=== PATIENT | male | born 1970 | race Caucasian/White ===

== ENCOUNTER 2017-06-08 10:21 | Inpatient (IN) | payer OTHER ==
[~2017-06-08] VITALS: Ht 182.9 cm; Wt 74.6 kg
[2017-06-08] VITALS (15 sets, daily range): BP systolic 102–149; BP diastolic 57–98; PULSE 84–114; RESP 16–18; TEMP 97.9–99.7; O2SAT 87–100
[2017-06-08] MEDS ORDERED: IOHEXOL 350 MG/ML 10 ML VIAL (for RAD DIAG) IVCONTRAST ONE (10:22)
[2017-06-08] MEDS ORDERED: GADODIAMIDE PF 287 MG/ML 20 ML VIAL (for RAD MRI) IVCONTRAST ONE (10:22)
[2017-06-08] MEDS ORDERED: SODIUM CHLOR 0.9% 1000 ML INJ 1,000 ML IV ONE (10:27)
[2017-06-08] MEDS ORDERED: LORazepam 2 MG/ML VIAL ONE (10:38)
[2017-06-08 10:49] LABS: AUTOMATED NEUTROPHIL # 3.6 TH/MM3 (1.8-7.7); BASOPHIL # 0.1 TH/MM3 (0-0.2); BASOPHIL % 1.6 % (0.0-2.0); EOSINOPHIL # 0.1 TH/MM3 (0-0.4); EOSINOPHIL % 1.9 % (0.0-4.0); HEMATOCRIT 43.6 % (39.0-51.0); HEMOGLOBIN 16.4 GM/DL (13.0-17.0); LYMPH % 23.8 % (9.0-44.0); LYMPHOCYTE # 1.4 TH/MM3 (1.0-4.8); MEAN CELL VOLUME 85.2 FL (80.0-100.0); MEAN PLATELET VOLUME 7.1 FL (7.0-11.0); MONO % 9.5 % (0.0-8.0); MONOCYTE # 0.5 TH/MM3 (0-0.9); NEUT % 63.2 % (16.0-70.0); PLATELET COUNT 223 TH/MM3 (150-450); RED BLOOD COUNT 5.12 MIL/MM3 (4.50-5.90); RED CELL DISTRIBUTION WIDTH 12.4 % (11.6-17.2); WHITE BLOOD COUNT 5.7 TH/MM3 (4.0-11.0)
--- NOTE | 2017-06-08 10:52 | PD ---
HPI Chief Complaint: Stroke Alert Time Seen by Provider: 10:22 Travel History International Travel<30 days: No Contact w/Intl Traveler<30days: No Traveled to known affect area: No History of Present Illness HPI Patient complained of a headache previous day while he was camping. Patient also continued to have this headache as well as he developed a tonic-clonic type seizure while he was playing a board game with his family. Patient then developed a left eye gaze forced deviation, patient was able to answer questions at this present time. Only major complaint is that of headache like he has had for the past day or so. No previous history of seizure PFS Social History Tobacco Use: No Allergies-Medications (Allergen,Severity, Reaction): Coded Allergies: No Known Allergies (Unverified , 07/20/16) Reported Meds & Prescriptions Reported Meds & Active Scripts Active Active Prescriptions or Reported Medications Unobtainable Review of Systems General / Constitutional: No: Fever Eyes: No: Visual changes HENT: No: Headaches Cardiovascular: No: Chest Pain or Discomfort Respiratory: No: Shortness of Breath Gastrointestinal: No: Abdominal Pain Genitourinary: No: Dysuria Musculoskeletal: No: Pain Skin: No Rash Neurologic: Positive: Seizures Psychiatric: No: Depression Endocrine: No: Polydipsia Hematologic/Lymphatic: No: Easy Bruising Physical Exam Narrative GENERAL: SKIN: Warm and dry. HEAD: Atraumatic. Normocephalic. EYES: Pupils equal and round. No scleral icterus. Left eye deviation ENT: No nasal bleeding or discharge. Mucous membranes pink and moist. NECK: Trachea midline. No JVD. CARDIOVASCULAR: Regular rate and rhythm. RESPIRATORY: No accessory muscle use. Clear to auscultation. Breath sounds equal bilaterally. GASTROINTESTINAL: Abdomen soft, non-tender, nondistended. Hepatic and splenic margins not palpable. MUSCULOSKELETAL: Extremities without clubbing, cyanosis, or edema. No obvious deformities. NEUROLOGICAL: Awake and alert. Left-sided weakness. Patient is able to feel pinprick sensation. Normal speech. PSYCHIATRIC: Appropriate mood and affect; insight and judgment normal. Data Data Last Documented VS Vital Signs Date Time Temp Pulse Resp B/P (MAP) Pulse Ox O2 Delivery O2 Flow Rate FiO2 06/08/17 12:05 40 06/08/17 11:22 98.1 111 16 118/57 (77) 100 Non-Rebreather 15.00 Orders Orders Diet Npo (06/08/17 Lunch) Activity Bed Rest (06/08/17 ) Electrocardiogram (06/08/17 ) I-Stat Profile (06/08/17 10:27) Prothrombin Time / Inr (Pt) (06/08/17 10:27) Act Partial Throm Time (Ptt) (06/08/17 10:27) Complete Blood Count With Diff (06/08/17 10:27) Fibrinogen (06/08/17 10:27) Creatine Kinase (Cpk) (06/08/17 10:27) Troponin I (06/08/17 10:27) Ua Includes Microscopic (06/08/17 10:27) Drug Screen, Random Urine (06/08/17 10:27) Type And Screen (06/08/17 10:27) Ct Brain W/O Iv Contrast(Rout) (06/08/17 ) Cta Brain W Iv Contrast W 3d (06/08/17 10:27) Cta Neck W Iv Contrast W 3d (06/08/17 10:27) Consult Neurology (06/08/17 ) Blood Glucose (06/08/17 10:27) Ecg Monitoring (06/08/17 10:27) Neuro Checks Q2HX12,Q4H (06/08/17 10:27) Nursing Bedside Swallow Assess .ONCE (06/08/17 10:27) Iv Access Insert/Monitor (06/08/17 10:27) NPO (06/08/17 10:27) Oximetry (06/08/17 10:27) Resp Oxygen Nc Stroke (06/08/17 ) Sodium Chlor 0.9% 1000 Ml Inj (Ns 1000 M (06/08/17 10:27) Cath For Specimen (06/08/17 10:27) Lorazepam Inj (Ativan Inj) (06/08/17 10:38) Iohexol 350 Inj (Omnipaque 350 Inj) (06/08/17 10:22) Fosphenytoin Inj (Cerebyx Inj) (06/08/17 11:00) (Hub Use Only)Inp Phy Cons/Ref (06/08/17 ) Mri Brain W&W/O Contrast (06/08/17 ) Urinary Catheter Insert/Apply (06/08/17 10:52) Lorazepam Inj (Ativan Inj) (06/08/17 11:00) Midazolam Inj (Versed Inj) (06/08/17 11:07) Lorazepam Inj (Ativan Inj) (06/08/17 11:15) Eeg Study (06/08/17 ) Fosphenytoin Inj (Cerebyx Inj) (06/08/17 14:00) ^ Seizure Precautions (06/08/17 11:12) Lorazepam Inj (Ativan Inj) (06/08/17 11:15) Gadodiamide Pf Inj (Omniscan Pf Inj) (06/08/17 10:22) Succinylcholine Inj (Quelicin Inj) (06/08/17 11:49) Etomidate Inj (Amidate Inj) (06/08/17 11:50) Propofol 500 Mg/50 Ml Inj (Diprivan 500 (06/08/17 12:09) Propofol 1000 Mg/100 Ml Inj (Diprivan 10 (06/08/17 12:15) Consult Neurosurgery (06/08/17 ) Dexamethasone Inj (Decadron Inj) (06/08/17 12:15) Admit Order (Ed Use Only) (06/08/17 12:19) Dexamethasone Inj (Decadron Inj) (06/08/17 18:00) Labs Laboratory Tests Test 06/08/17 10:23 06/08/17 11:00 White Blood Count 5.7 TH/MM3 Red Blood Count 5.12 MIL/MM3 Hemoglobin 16.4 GM/DL Bedside Hemoglobin 15.0 G/DL Hematocrit 43.6 % Bedside Hematocrit 44.0 % Mean Corpuscular Volume 85.2 FL Mean Corpuscular Hemoglobin 32.0 PG Mean Corpuscular Hemoglobin Concent 37.5 % Red Cell Distribution Width 12.4 % Platelet Count 223 TH/MM3 Mean Platelet Volume 7.1 FL Neutrophils (%) (Auto) 63.2 % Lymphocytes (%) (Auto) 23.8 % Monocytes (%) (Auto) 9.5 % Eosinophils (%) (Auto) 1.9 % Basophils (%) (Auto) 1.6 % Neutrophils # (Auto) 3.6 TH/MM3 Lymphocytes # (Auto) 1.4 TH/MM3 Monocytes # (Auto) 0.5 TH/MM3 Eosinophils # (Auto) 0.1 TH/MM3 Basophils # (Auto) 0.1 TH/MM3 CBC Comment AUTO DIFF Differential Comment AUTO DIFF CONFIRMED Prothrombin Time 10.4 SEC Prothromb Time International Ratio 1.0 RATIO Activated Partial Thromboplast Time 25.7 SEC Fibrinogen 252 mg/dL Bedside Sodium 142 MMOL/L Bedside Potassium 3.8 MMOL/L Bedside Chloride 104 MMOL/L Bedside Blood Urea Nitrogen 8 MG/DL Bedside Creatinine 0.8 MG/DL Bedside Glucose 107 MG/DL Total Creatine Kinase 53 U/L Troponin I LESS THAN 0.02 NG/ML Urine Color YELLOW Urine Turbidity HAZY Urine pH 7.5 Urine Specific [place] 1.019 Urine Protein 30 mg/dL Urine Glucose (UA) 70 mg/dL Urine Ketones NEG mg/dL Urine Occult Blood NEG Urine Nitrite NEG Urine Bilirubin NEG Urine Urobilinogen LESS THAN 2.0 MG/DL Urine Leukocyte Esterase NEG Urine RBC 1 /hpf Urine WBC 4 /hpf Urine Amorphous Sediment MANY Urine Mucus FEW /lpf Urine Opiates Screen NEG Urine Barbiturates Screen NEG Urine Amphetamines Screen NEG Urine Benzodiazepines Screen NEG Urine Cocaine Screen NEG Urine Cannabinoids Screen NEG MDM Medical Decision Making Medical Screen Exam Complete: Yes Emergency Medical Condition: Yes Medical Record Reviewed: Yes Interpretation(s) sinus tach, 119, normal intervals, no stemi pattern Differential Diagnosis ICH versus mass versus new onset seizure versus ischemic CVA versus electrolyte abnormality Narrative Course Patient was seen right away and taken over to CT after the NIH score was performed patient shortly after had a seizure while still in CT patient was placed given Ativan IV placed on a nonrebreather and return back to the bed order for Cerebyx was also made patient is now guarding his airway and postictal. Abnormal CT demonstrating anterior right temporal lobe hypodensity suggesting edema and diffuse mass effect in the right hemisphere with 3 mm midline shift towards the left. There is a focal hyper density in the right temporal tip which may represent a hemorrhage or mass. The CT appearance could be due to either an acute right MCA infarction with possible hemorrhage or a mass in the right temporal lobe with surrounding edema. Recommend performing MRI of the brain with and without contrast to help differentiate between these 2 possibilities. This case has been discussed with Dr. Irwin. Critical Care Narrative CRITICAL CARE NOTE: With evaluation of the patient, labs, EKG, receipt of radiologic studies, administration of medications, reevaluation the patient and discussion of the patient with the admitting physicians, the total critical care time was [45] minutes. Time to perform other separately billable procedures was not included in the critical care time. 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
[2017-06-08 10:53] LABS: MEAN CORPUSCULAR HGB CONC 37.5 % (32.0-36.0)
--- NOTE | 2017-06-08 10:53 | RADRPT ---
EXAM DATE/TIME: 06/08/2017 10:28 [facility] COMPARISON: CT BRAIN W/O CONTRAST, July 20, 2016, 8:50. INDICATIONS : Stroke alert; seizure, left-sided gaze, headache. RADIATION DOSE: 69.15 CTDIvol (mGy) This report was discussed in person at scanner-side with Dr. Irwin at 10: 40am MEDICAL HISTORY : Unable to obtain. SURGICAL HISTORY : Unable to obtain. ENCOUNTER: Initial ACUITY: 1 day PAIN SCALE: 4/10 LOCATION: Bilateral cranial TECHNIQUE: Multiple contiguous axial images were obtained of the head. Using automated exposure control and adj ustment of the mA and/or kV according to patient size, radiation dose was kept as low as reasonably a chievable to obtain optimal diagnostic quality images. DICOM format image data is available electro nically for review and comparison. FINDINGS: Examination is abnormal demonstrating focal hypodensity in the anterior right temporal lobe with a pe ripheral rounded area of hyperdensity measuring 1.6 cm. There is effacement of the right temporal ho rn and sylvian fissure. There is questionable hyperdensity in the proximal middle cerebral artery; t he artery appears to larger than on the contralateral side and possibly more dense. These findings a re new when compared to prior CT in July 2016. There is also evidence of disc diffuse mass effect i n the right hemisphere with narrowing of the right lateral ventricle and midline shift towards the le ft in the subfalcine region measuring 3 mm. Boyd/white matter differentiation in the occipital and p arietal lobes are maintained. The posterior fossa structures are intact stop the 4th ventricle is normal in size. Wide windows for bony detail demonstrate the calvarium to be intact. The paranasal sinuses are clear. CONCLUSION: Abnormal CT demonstrating anterior right temporal lobe hypodensity suggesting edema and diffuse mass effect in the right hemisphere with 3 mm midline shift towards the left. There is a focal hyper dens ity in the right temporal tip which may represent a hemorrhage or mass. The CT appearance could be d ue to either an acute right MCA infarction with possible hemorrhage or a mass in the right temporal l obe with surrounding edema. Recommend performing MRI of the brain with and without contrast to help differentiate between these 2 possibilities. This case has been discussed with Dr. Irwin. Tani Polo MD on June 08, 2017 at 10:36 Board Certified Radiologist. This report was verified electronically.
[2017-06-08 10:56] LABS: PROTHROMBIN TIME - PATIENT 10.4 SEC (9.8-11.6)
[2017-06-08] MEDS ORDERED: FOSPHENYTOIN INJ 1,000 MGPE in SODIUM CHLORIDE 0.9% INJ 50 ML IV ONE (11:00)
[2017-06-08] MEDS ORDERED: LORazepam 2 MG/ML VIAL IVS ONE (11:00)
--- NOTE | 2017-06-08 11:05 | RADRPT ---
EXAM DATE/TIME: 06/08/2017 10:43 [facility] COMPARISON: CT BRAIN W/O CONTRAST, June 08, 2017, 10:28. INDICATIONS : Stroke alert; seizure, left-sided gaze, headache. IV CONTRAST: 90 cc Omnipaque 350 (iohexol) IV ; Cumulative dose for multiple exams. RADIATION DOSE: 10.68 CTDIvol (mGy) ; Combined studies MEDICAL HISTORY : Unable to obtain. SURGICAL HISTORY : Unable to obtain. ENCOUNTER: Initial ACUITY: 1 day PAIN SCALE: 4/10 LOCATION: Bilateral cranial TECHNIQUE: Volumetric scanning was performed using a multi-row detector CT scanner. The data was post processed with a variety of visualization algorithms including full volume maximum intensity projection, multi -planar sliding thin slab reformation, curved planar reformation, and surface rendering techniques. Using automated exposure control and adjustment of the mA and/or kV according to patient size, radiat ion dose was kept as low as reasonably achievable to obtain optimal diagnostic quality images. DICO M format image data is available electronically for review and comparison. FINDINGS: The CTA demonstrates patent internal carotid arteries bilaterally and contrast is seen within the lum en of both A1 and M1 segments. Flow is seen in both posterior communicating arteries. The posterior circulation has a normal appearance. There is no vessel truncation seen in the anterior right temporal region. No significant arterial fl ow seen in the 1.5 cm hyperdense lesion in the right temporal tip with surrounding edema. CONCLUSION: 1. No evidence of vessel truncation. In particular, the right middle cerebral artery and MCA branche s demonstrate flow. 2. 1.5 cm right temporal tip mass or hemorrhage with surrounding edema. Tani Polo MD on June 08, 2017 at 11:01 Board Certified Radiologist. This report was verified electronically.
[2017-06-08 11:07] LABS: TROPONIN I LESS THAN 0.02 NG/ML (0.02-0.05)
[2017-06-08] MEDS ORDERED: MIDAZOLAM HCL 5 MG/ML VIAL (1 ML) ONE (11:07)
[2017-06-08] MEDS ORDERED: LORazepam 2 MG/ML VIAL IV PUSH ONE ×2 (11:15→13:15)
--- NOTE | 2017-06-08 11:18 | RADRPT ---
EXAM DATE/TIME: 06/08/2017 10:43 [facility] COMPARISON: No previous studies available for comparison. INDICATIONS : Stroke alert; seizure, left-sided gaze, headache. IV CONTRAST: 90 cc Omnipaque 350 (iohexol) IV ; Cumulative dose for multiple exams. RADIATION DOSE: 10.68 CTDIvol (mGy) ; Combined studies MEDICAL HISTORY : Unable to obtain. SURGICAL HISTORY : Unable to obtain. ENCOUNTER: Initial ACUITY: 1 day PAIN SCALE: 4/10 LOCATION: Bilateral cranial Elevated flow velocities and ICA/CCA ratios have been found to correlate with increased degrees of vessel stenosis, calculated as percentage of diameter relative to a normal segment of distal ICA/CCA. TECHNIQUE: Volumetric scanning was performed using a multirow detector CT scanner. The data was post processed with a variety of visualization algorithms including full-volume maximum intensity projection, multip lanar sliding thin-slab reformation, curved-planar reformation, and surface-rendering techniques. Us ing automated exposure control and adjustment of the mA and/or kV according to patient size, radiatio n dose was kept as low as reasonably achievable to obtain optimal diagnostic quality images. DICOM f ormat image data is available electronically for review and comparison. FINDINGS: AORTIC ARCH: There is a three-vessel origin of the great vessels from the aorta. No evidence of ostial narrowing. RIGHT CAROTID: The common carotid artery is intact. The carotid bulb has a normal configuration without ulceration o r narrowing. The internal carotid artery lumen is smooth without stenosis. The external carotid sav[place] ry is intact. LEFT CAROTID: The common carotid artery is intact. The carotid bulb has a normal configuration without ulceration or narrowing. The internal carotid artery lumen is smooth without stenosis. The external carotid ar allen is intact. VERTEBRALS: The vertebral arteries have a symmetric diameter. No stenotic lesions are seen. CONCLUSION: Normal carotid CTA. Tani Polo MD on June 08, 2017 at 11:14 Board Certified Radiologist. This report was verified electronically.
[2017-06-08 11:22] LABS: AMORPHOUS SEDIMENT, URINE MANY; BILIRUBIN, URINE NEG (NEG); BLOOD, URINE NEG (NEG); GLUCOSE,URINE 70 mg/dL (NEG); KETONE, URINE NEG (NEG); MUCUS URINE FEW /lpf (OCC); NITRITE,URINE NEG (NEG); PH, URINE 7.5 (5.0-8.5); URINE COLOR YELLOW (YELLW/STRAW); URINE LEUKOCYTE ESTERASE NEG (NEG)
[2017-06-08] MEDS ORDERED: SUCCINYLCHOLINE CHLORIDE 200 MG/10 ML VIAL ONE (11:49)
[2017-06-08] MEDS ORDERED: ETOMIDATE 40 MG/20 ML VIAL ONE (11:50)
--- NOTE | 2017-06-08 11:52 | MB ---
cc: REHANA MOISE DATE OF CONSULTATION: 06/08/2017 REASON FOR CONSULTATION: Stroke alert HISTORY OF PRESENT ILLNESS: Mr. Jorge is a 47 year-old man. He was camping, developed a headache and then developed generalized tonic-clonic seizure. After the seizure, he was found to have a left gaze and was weak on the left side. He came to the ER as a stroke alert. While in CT he had a recurrent generalized seizure. He was treated with Ativan IV. PAST MEDICAL HISTORY: Unknown at the present time. NEUROLOGIC EXAMINATION Blood pressure is 149/72, pulse is 114, respirations are 16. Higher cortical function, he is nonresponsive at the present time. Cranial nerves: He has a left gaze deviation. The pupils are 2 mm reactive. Motor exam: he is generally weak. There is no tonic-clonic activity at the present time. IMAGING STUDIES: CT of the brain shows an area of hypo-density in the right temporal lobe with a probable edema and diffuse mass effect in the right hemisphere with 3 millimeter midline shift with the left. There is focal hyper-density right temporal tip, possible hemorrhage or mass. CT appearance possibly due to right MCA stroke with hemorrhage or mass. MRI is recommended. CT angiogram of the brain was also done, result is pending. INTERPRETATION New-onset seizure with left-sided weakness, left gaze. Suspect that this may be a postictal phenomenon as opposed to a stroke. Concern is for possible tumor in the right hemisphere. Therefore, recommend proceeding with MRI of the brain for further evaluation. Also load him with Cerebyx 1000 mg at this time. Will continue as well with Cerebyx 100 mg IV q.[address] hours[address] also [address] him under seizure precautions. At this time he is not a TPA candidate because of the potential tumor as well as possible hemorrhage on the CT scan. MD EMY Montoya/MARTIN /11:08 AM /11:38 AM
[2017-06-08] MEDS ORDERED: PROPOFOL 500 MG/50 ML INJ 50 ML ONE (12:09)
[2017-06-08] MEDS ORDERED: DEXAMETHASONE SOD PHOS 20 MG/5 ML VIAL IV PUSH ONE (12:15)
[2017-06-08] MEDS ORDERED: PROPOFOL 1000 MG/100 ML INJ 100 ML IV PRN ×2 (12:15→12:30)
--- NOTE | 2017-06-08 12:15 | RADRPT ---
EXAM DATE/TIME: 06/08/2017 11:20 [facility] COMPARISON: No previous studies available for comparison. INDICATIONS : Hemorrhage. CONTRAST: 18 cc Omniscan (gadodiamide) IV MEDICAL HISTORY : None. SURGICAL HISTORY : None. ENCOUNTER: Initial ACUITY: 1 day PAIN SCORE: 0/10 LOCATION: cranial TECHNIQUE: Multiplanar, multisequence MRI of the brain was performed both prior to and following the administrat ion of paramagnetic contrast. FINDINGS: The examination is abnormal demonstrating for ring-enhancing masses in the right temporal lobe. Thes e are located anterior and middle cranial fossa measuring 1.7 cm, medial to the middle cranial fossa measuring 1.4 cm and 2 adjacent masses in the posterior temporal lobe white matter measuring 2.4 cm a nd 1.4 cm. On the susceptibility weighted images, there are no similar abnormalities to suggest bloo d products within the There is mild diffuse cerebral edema in the temporal lobe which is creating a m ass effect and there is evidence of asymmetric compression of the uncus on the right and 3 mm midline shift subfalcine towards the left. No abnormal areas of enhancement seen in the left hemisphere or in the posterior fossa. Visualized orbital and paranasal structures are intact. CONCLUSION: Abnormal exam demonstrating four ring-enhancing lesions, all located in the right temporal lobe. The re is edema in the right temporal lobe and evidence of midline shift towards the left. No evidence o f hemorrhage. Differential considerations include metastatic lesions and septic abscesses. Tani Polo MD on June 08, 2017 at 12:02 Board Certified Radiologist. This report was verified electronically.
[2017-06-08] MEDS ORDERED: DEXTROSE 50% IN WATER 50 ML VIAL(D50) IV PUSH PRN (12:30)
[2017-06-08] MEDS ORDERED: MAGNESIUM SULFATE INJ 2 GM in SODIUM CHLORIDE 0.9% INJ 96 ML IV PRN (12:30)
[2017-06-08] MEDS ORDERED: POTASSIUM CHLORIDE 25 MEQ EFFERVESCENT TAB PO PRN (12:30)
[2017-06-08] MEDS ORDERED: fentaNYL DRIP 250 ML IV PRN (12:30)
[2017-06-08] MEDS ORDERED: MAGNESIUM OXIDE 400 MG TAB PO PRN (12:30)
[2017-06-08] MEDS ORDERED: ONDANSETRON HCL 4 MG/2 ML VIAL IV PUSH PRN (12:30)
[2017-06-08] MEDS ORDERED: POTASSIUM PHOSPHATE MONOBASIC 500 MG TAB PO/TUBE PRN (12:30)
[2017-06-08] MEDS ORDERED: POTASSIUM PHOSPHATE MONOBASIC 500 MG TAB PO PRN (12:30)
[2017-06-08] MEDS ORDERED: POTASSIUM CHLOR 40 MEQ PREMIX 100 ML IV PRN (12:30)
[2017-06-08] MEDS ORDERED: CHLORHEXIDINE GLUCONATE 2 % 1 PACK (2 CLOTHS) TOP PRN (12:30)
[2017-06-08] MEDS ORDERED: POTASSIUM CHLOR 20 MEQ PREMIX 100 ML IV PRN (12:30)
[2017-06-08] MEDS ORDERED: GLUCAGON 1 MG/ML VIAL OTHER PRN (12:30)
[2017-06-08] MEDS ORDERED: MAGNESIUM SULFATE INJ 4 GM in SODIUM CHLORIDE 0.9% INJ 92 ML IV PRN (12:30)
[2017-06-08] MEDS ORDERED: SODIUM CHLORIDE 0.9% FLUSH 10 ML FLUSH IV FLUSH PRN (12:30)
[2017-06-08] MEDS ORDERED: SODIUM PHOSPHATE INJ 30 MMOL in SODIUM CHLOR 0.9% 250 ML INJ 240 ML IV PRN (12:30)
[2017-06-08] MEDS ORDERED: MISCELLANEOUS NURSING INFORMATION XX SCH (12:30)
[2017-06-08] MEDS ORDERED: POTASSIUM PHOSPHATE INJ 30 MMOL in SODIUM CHLOR 0.9% 250 ML INJ 250 ML IV PRN (12:30)
[2017-06-08] MEDS: ARTIFICIAL TEARS OPTH SOLN 15 ML BTL EACH EYE SCH ×2 (13:00→18:00)
[2017-06-08] MEDS: PROPOFOL 1000 MG/100 ML INJ 100 ML IV PRN ×4 (13:04→23:58)
[2017-06-08] MEDS: POTASSIUM CHLOR 20 MEQ PREMIX 100 ML IV PRN (13:06)
[2017-06-08] MEDS: SODIUM CHLOR 0.9% 1000 ML INJ 1,000 ML IV SCH (13:06)
[2017-06-08] MEDS ORDERED: ETOMIDATE 40 MG/20 ML VIAL IV PUSH ONE (13:15)
[2017-06-08] MEDS ORDERED: SUCCINYLCHOLINE CHLORIDE 100 MG/5 ML SYRINGE IV PUSH ONE (13:15)
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
--- NOTE | 2017-06-08 14:40 | EKG ---
Date Performed: 06/08/2017 Time Performed: 10:56:30 PTAGE: 47 years EKG: SINUS TACHYCARDIA ABNORMAL RHYTHM ECG NO PREVIOUS TRACING DOCTOR: Chung Kyle Interpretating Date/Time 06/08/2017 14:38:13
[2017-06-08] MEDS ORDERED: MULTIVITAMIN INJ 10 ML, THIAMINE INJ 100 MG, FOLIC ACID INJ 1 MG in SODIUM CHLORID 0.9%... IV ONE (15:00)
[2017-06-08] MEDS: fentaNYL DRIP 250 ML IV PRN (15:29)
[2017-06-08] MEDS: FOSPHENYTOIN SODIUM 100 MG PE/2 ML VIAL IV SCH ×2 (15:30→21:27)
--- NOTE | 2017-06-08 15:56 | RADRPT ---
EXAM DATE/TIME: 06/08/2017 15:31 [facility] COMPARISON: CHEST SINGLE AP, July 20, 2016, 8:24. INDICATIONS : Post Intubation. MEDICAL HISTORY : None. SURGICAL HISTORY : None. ENCOUNTER: Subsequent ACUITY: 1 day PAIN SCORE: 0/10 LOCATION: Bilateral chest. FINDINGS: A single view of the chest demonstrates the endotracheal tube and nasogastric tube in good position T he cardiomediastinal contours are unremarkable. Osseous structures are intact. CONCLUSION: Normal examination status post intubation. NG tube in good position. Johnathon Flowers MD on June 08, 2017 at 15:53 Board Certified Radiologist. This report was verified electronically.
--- NOTE | 2017-06-08 16:48 | HHI.NSPN ---
History Chief Complaint: Seizures Interval History 47-year-old male patient presents to the emergency room with history of seizure activity. Underwent imaging of the brain and was noted to have seizures while in the emergency room. Patient underwent intubation and control with IV medication and neurosurgery consult was placed System Review Comments Unremarkable Exam Results Vital Signs Date Time Temp Pulse Resp B/P (MAP) Pulse Ox O2 Delivery O2 Flow Rate FiO2 06/08/17 14:15 06/08/17 13:29 99.0 101 16 99 Ventilator 40 06/08/17 11:22 15.00 Intake and Output 06/08/17 06/08/17 06/09/17 08:00 16:00 00:00 Intake Total 270 ml Balance 270 ml Physical Examination Sedated. Intubated on a respirator When off sedation the patient becomes somewhat agitated. Pupils are equal and reactive Tends to move all extremities when stimulated Deep tendon reflexes are 1+ Lab, Micro, Other Results CT of the brain shows evidence of low-density areas in the right temporal lobe with some areas of possible hemorrhage MRI of the brain shows multiple enhancing lesions of the brain in the right temporal lobe with mild mass-effect and edema Medical Decision Making Impression and Plan Impression: Rule out metastatic disease, seizure disorder Recommendations: Keep patient on IV Dilantin. Level should be performed in 24 hours Decadron 4 mg IV every 6 hours Neurochecks every 2 hours Should undergo abbreviated metastatic workup No other lesions found may need to have a biopsy or removal of the lesions of the temporal lobe Delbert Piña MD Jun 08, 2017 16:48
[2017-06-08 16:54] LABS: DIRECT BILIRUBIN ADULT 0.1 MG/DL (0.0-0.2); MAGNESIUM 2.2 MG/DL (1.5-2.5); PHOSPHORUS 2.1 MG/DL (2.5-4.9)
[2017-06-08] MEDS: RESP: ALBUTEROL 2.5 MG/IPRATROPIUM 0.5 MG NEB (SCH) INH ×2 (16:57→20:07)
--- NOTE | 2017-06-08 17:02 | MB ---
cc: MICHI NUGENT MD DATE OF CONSULTATION: 06/08/2017. REASON FOR CONSULTATION / CHIEF COMPLAINT: Seizures. HISTORY OF PRESENT ILLNESS: This is a 47-year-old male patient who presented to the emergency room because of seizure activity. The reports that usually the patient has been doing well. During this past winter, she noted that he was less active as previously. On Friday night, he was with a friend and stayed up late. The next day he complained of a severe headache and then the family noticed that he started to have what appeared to be seizure activity involving both the arms and the legs with a gaze preference towards the left side. The ambulance was called. The patient was transported here to [facility] where he underwent evaluation, and because of findings on x-rays, neurosurgery consult was placed. PAST MEDICAL HISTORY: His past medical history is unremarkable except for possible alcohol abuse. PAST SURGICAL HISTORY: Unremarkable. MEDICATIONS: He does not take any medications. ALLERGIES: HE HAS NO KNOWN ALLERGIES. REVIEW OF SYSTEMS: His review of systems is unremarkable. SOCIAL HISTORY: Significant alcohol use on a daily basis. There is no tobacco use and no use of illicit drugs. PHYSICAL EXAMINATION: VITAL SIGNS: Blood pressure of 147/98, respirations 16, pulse of 91, temperature of 98.1. HEAD, EYES, EARS, NOSE, THROAT: Unremarkable. NECK: The neck is supple with good carotid pulses bilaterally. CHEST: Symmetric. LUNGS: Clear. HEART: Regular rhythm. Normal heart sounds. ABDOMEN: Abdomen soft and nontender. EXTREMITIES: Clear. NEUROLOGICAL EXAMINATION: Neurologically the patient is intubated on a respirator. He is sedated. He does not follow commands. He keeps his eyes closed. When off sedation, he tends to become somewhat agitated moving all extremities. Pupils are equal and reactive. On motor exam, the patient moves all extremities when off the sedatives. Deep tendon reflexes are trace at all sites. Sensory exam is intact to pain. IMAGING STUDIES: Review of CT scan of the brain shows low density areas in the temporal lobe with what appears to be some small amount of bleeding. MRI of the brain shows what appears to be multiple enhancing lesions in the temporal lobe on the right side. IMPRESSION: Multiple cerebral lesions, consider metastatic disease. PLAN: The plan is to undergo abbreviated metastatic workup. If no primary is found, he may need to have a biopsy or surgery for these cerebral lesions. The patient should be kept on anticonvulsants because of his seizure activity. Level should be performed in about 24 hours. MD MIRIAM Lindo/KARYN /4:33 PM /4:51 PM CHERYL
[2017-06-08 17:04] LABS: INDIRECT BILIRUBIN 0.6 MG/DL (0.0-0.8); TOTAL BILIRUBIN ADULT 0.7 MG/DL (0.2-1.0); TOTAL PROTEIN 7.3 GM/DL (6.4-8.2)
[2017-06-08] MEDS: INSULIN NovoLIN REGULAR SUPPLEMENTAL SCALE SQ SCH (18:00)
[2017-06-08] MEDS: DEXAMETHASONE SOD PHOS 4 MG/ML VIAL IV PUSH SCH ×2 (18:52→23:58)
[2017-06-08] MEDS: CHLORHEXIDINE 0.12% (ORAL KIT) 15 ML CUP MT SCH (20:04)
[2017-06-08] MEDS: SODIUM CHLORIDE 0.9% FLUSH 10 ML FLUSH IV FLUSH SCH (20:04)
[2017-06-08] MEDS: DOCUSATE SODIUM 50 MG/SENNA 8.6 MG TAB PO SCH (21:00)
[2017-06-09] VITALS (17 sets, daily range): BP systolic 89–104; BP diastolic 52–62; PULSE 82–104; RESP 16–17; TEMP 97.7–99.1; O2SAT 98–100
[2017-06-09] MEDS: INSULIN NovoLIN REGULAR SUPPLEMENTAL SCALE SQ SCH ×5 (00:17→23:59)
[2017-06-09] MEDS: RESP: ALBUTEROL 2.5 MG/IPRATROPIUM 0.5 MG NEB (SCH) INH ×4 (02:55→21:08)
[2017-06-09] MEDS: CHLORHEXIDINE GLUCONATE 2 % 1 PACK (2 CLOTHS) TOP SCH (03:17)
[2017-06-09] MEDS: SODIUM CHLOR 0.9% 1000 ML INJ 1,000 ML IV SCH ×2 (03:18→16:03)
[2017-06-09] MEDS: LORazepam 2 MG/ML VIAL IV PUSH PRN (03:36)
[2017-06-09] MEDS: PROPOFOL 1000 MG/100 ML INJ 100 ML IV PRN ×4 (03:49→20:15)
[2017-06-09] MEDS: MIDAZOLAM 100 MG/100 ML INJ 100 ML IV PRN ×2 (03:52→20:15)
[2017-06-09] MEDS: DEXAMETHASONE SOD PHOS 4 MG/ML VIAL IV PUSH SCH ×3 (05:23→17:59)
[2017-06-09] MEDS: FOSPHENYTOIN SODIUM 100 MG PE/2 ML VIAL IV SCH ×3 (05:24→21:01)
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
[2017-06-09 06:02] LABS: BASOPHIL % 0.1 % (0.0-2.0); HEMATOCRIT 42.3 % (39.0-51.0); HEMOGLOBIN 15.1 GM/DL (13.0-17.0); LYMPHOCYTE # 0.7 TH/MM3 (1.0-4.8); MEAN CELL VOLUME 85.7 FL (80.0-100.0); MEAN CORPUSCULAR HEMOGLOBIN 30.6 PG (27.0-34.0); MEAN CORPUSCULAR HGB CONC 35.7 % (32.0-36.0); MEAN PLATELET VOLUME 7.4 FL (7.0-11.0); MONO % 4.6 % (0.0-8.0); MONOCYTE # 0.5 TH/MM3 (0-0.9); NEUT % 89.3 % (16.0-70.0); PLATELET COUNT 227 TH/MM3 (150-450); RED BLOOD COUNT 4.93 MIL/MM3 (4.50-5.90); RED CELL DISTRIBUTION WIDTH 12.1 % (11.6-17.2); WHITE BLOOD COUNT 11.2 TH/MM3 (4.0-11.0)
--- NOTE | 2017-06-09 06:08 | RADRPT ---
EXAM DATE/TIME: 06/09/2017 04:42 [place] COMPARISON: CHEST SINGLE AP, June 08, 2017, 15:31. INDICATIONS : Short of breath. MEDICAL HISTORY : None. SURGICAL HISTORY : None. ENCOUNTER: Subsequent ACUITY: 2 days PAIN SCORE: 0/10 LOCATION: Bilateral chest FINDINGS: A single AP portable semierect view of the chest was obtained and demonstrates the endotracheal tube in place with the tip approximately 4 cm above the earl. A nasogastric tube is seen coursing throug h the esophagus and into the stomach. There are no confluent infiltrates or effusions. The heart size is within normal limits. The bony thorax remains intact. Overlying electrocardiogram leads and oxyge n tubing are present. CONCLUSION: 1. The endotracheal tube and nasogastric tube remain in place. 2. No acute cardiopulmonary disease. Rolo Ward MD on June 09, 2017 at 6:05 Board Certified Radiologist. This report was verified electronically.
[2017-06-09 06:24] LABS: ALBUMIN 3.5 GM/DL (3.4-5.0); AST (GOT) 13 U/L (15-37); BICARBONATE 25.6 MEQ/L (21.0-32.0); BLOOD UREA NITROGEN 12 MG/DL (7-18); CALCIUM 8.4 MG/DL (8.5-10.1); CHLORIDE 108 MEQ/L (98-107); GLOMERULAR FILTRATION RATE 90 ML/MIN (>89); GLUCOSE,RANDOM 144 MG/DL (74-106); MAGNESIUM 2.3 MG/DL (1.5-2.5); SODIUM (NA) 142 MEQ/L (136-145)
[2017-06-09 06:25] LABS: CHOLESTEROL 215 MG/DL (120-200); TRIGLYCERIDES 92 MG/DL (42-150)
[2017-06-09 06:30] LABS: ALKALINE PHOSPHATASE 78 U/L (45-117); ALT (GPT) 20 U/L (12-78); CHOLESTEROL/ HDL RATIO 4.13 RATIO; LDL CHOLESTEROL 145 MG/DL (0-99); PHENYTOIN (DILANTIN) 11.1 MCG/ML (10.0-20.0); PHOSPHORUS 3.4 MG/DL (2.5-4.9); TOTAL BILIRUBIN ADULT 0.5 MG/DL (0.2-1.0); TOTAL PROTEIN 6.7 GM/DL (6.4-8.2)
[2017-06-09 06:36] LABS: PROTHROMBIN TIME - PATIENT 10.4 SEC (9.8-11.6)
[2017-06-09] MEDS: SODIUM CHLORIDE 0.9% FLUSH 10 ML FLUSH IV FLUSH SCH ×2 (07:36→20:16)
[2017-06-09] MEDS: DOCUSATE SODIUM 50 MG/SENNA 8.6 MG TAB PO SCH ×2 (07:37→20:15)
[2017-06-09] MEDS: CHLORHEXIDINE 0.12% (ORAL KIT) 15 ML CUP MT SCH ×2 (07:37→20:14)
[2017-06-09] MEDS: LANSOPRAZOLE SOLUTAB 30 MG TAB G-TUBE SCH (07:37)
[2017-06-09] MEDS ORDERED: POTASSIUM CHLORIDE 20 MEQ PWD PACKET NG ONE (08:15)
[2017-06-09] MEDS: ARTIFICIAL TEARS OPTH SOLN 15 ML BTL EACH EYE SCH ×3 (08:20→17:59)
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
[2017-06-09] MEDS: MULTIVITAMIN INJ 10 ML, THIAMINE INJ 100 MG, FOLIC ACID INJ 1 MG in SODIUM CHLORID 0.9%... IV SCH (15:00)
[2017-06-09] MEDS: fentaNYL DRIP 250 ML IV PRN (20:15)
[2017-06-09] MEDS: ATORVASTATIN 10 MG TAB PO SCH (20:15)
--- NOTE | 2017-06-09 21:27 | HHI.PR ---
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 Recheck level in am Diagnosis/Plan: Subjective Subjective Comments No acute events reported No recurrent sz. Active Medications Current Medications Medications (Trade) Dose Ordered Sig/Gerald Route Start Time Stop Time Status Last Admin (Cerebyx Inj) 100 mgpe Q8HR IV 06/08/17 14:00 06/09/17 21:01 (Ativan Inj) 1 mg Q2H PRN IV PUSH 06/08/17 11:15 (Decadron Inj) 4 mg Q6HR IV PUSH 06/08/17 18:00 06/09/17 17:59 Sodium Chloride 1,000 ml @ 84 mls/hr [id number] IV 06/08/17 12:20 06/09/17 16:03 (NS Flush) 2 ml UNSCH PRN IV FLUSH 06/08/17 12:30 06/09/17 07:36 (NS Flush) 2 ml BID IV FLUSH 06/08/17 21:00 06/09/17 20:16 (Prevacid Odt) 30 mg DAILY G-TUBE 06/09/17 09:00 06/09/17 07:37 (Ativan Inj) 1 mg Q1H PRN IV PUSH 06/08/17 12:30 06/09/17 03:36 (Tears Naturale Opth Soln) 1 drop TID EACH EYE 06/08/17 13:00 06/09/17 17:59 (Zofran Inj) 4 mg Q6H PRN IV PUSH 06/08/17 12:30 (Duoneb Neb) 1 ampule Q6HR NEB INH 06/08/17 16:00 06/09/17 21:08 (Albuterol Neb) 2.5 mg Q2HR NEB PRN INH 06/08/17 12:30 Miscellaneous Information 1 Q361D XX 06/08/17 12:30 06/08/17 12:30 (Chlorhexidine 2% Cloth) 3 pack Taper DAILY@04 TOP 06/09/17 04:00 06/05/18 03:59 (Chlorhexidine 2% Cloth) 3 pack UNSCH PRN TOP 06/08/17 12:30 (Lorin-Colace) 1 tab BID PO 06/08/17 21:00 06/09/17 20:15 (Milk Of Magnesia Liq) 30 ml Q12H PRN PO 06/08/17 12:30 (Senokot) 17.2 mg Q12H PRN PO 06/08/17 12:30 (Dulcolax Supp) 10 mg DAILY PRN RECTAL 06/08/17 12:30 (Lactulose Liq) 30 ml DAILY PRN PO 06/08/17 12:30 (Peridex 0.12% Liq) 15 ml BID@08,20 MT 06/08/17 20:00 06/09/17 20:14 Potassium Chloride 100 ml @ 50 mls/hr Q2H PRN IV 06/08/17 12:30 Potassium Chloride 100 ml @ 50 mls/hr Q2H PRN IV 06/08/17 12:30 (K-Lyte Cl Eff) 50 meq UNSCH PRN PO 06/08/17 12:30 Potassium Chloride 100 ml @ 25 mls/hr UNSCH PRN IV 06/08/17 12:30 Potassium Chloride 100 ml @ 50 mls/hr Q2H PRN IV 06/08/17 12:30 06/08/17 13:06 Magnesium Sulfate 4 gm/Sodium Chloride 100 ml @ 50 mls/hr UNSCH PRN IV 06/08/17 12:30 (Mag-Ox) 800 mg UNSCH PRN PO 06/08/17 12:30 Magnesium Sulfate 2 gm/Sodium Chloride 100 ml @ 50 mls/hr UNSCH PRN IV 06/08/17 12:30 (K-Phos) 2,000 mg Q4H PRN PO 06/08/17 12:30 Sodium Phosphate 30 mmol/Sodium Chloride 250 ml @ 42 mls/hr UNSCH PRN IV 06/08/17 12:30 (K-Phos) 2,000 mg UNSCH PRN PO/TUBE 06/08/17 12:30 Potassium Phosphate 30 mmol/ Sodium Chloride 260 ml @ 42 mls/hr UNSCH PRN IV 06/08/17 12:30 (D50w (Vial) Inj) 50 ml UNSCH PRN IV PUSH 06/08/17 12:30 (Glucagon Inj) 1 mg UNSCH PRN OTHER 06/08/17 12:30 (NovoLIN R SUPPLEMENTAL SCALE) 1 Q6HR SQ 06/08/17 18:00 06/09/17 00:17 Fentanyl Citrate 250 ml @ 5 mls/hr TITRATE PRN IV 06/08/17 13:15 06/09/17 20:15 Propofol 100 ml @ 2.706 mls/ hr TITRATE PRN IV 06/08/17 13:15 06/09/17 20:15 Midazolam HCl 100 ml @ 2 mls/hr TITRATE PRN IV 06/08/17 13:15 06/09/17 20:15 Multivitamins 10 ml/Thiamine HCl 100 mg/Folic Acid 1 mg/Sodium Chloride 511.2 ml @ 125 mls/hr Q24H IV 06/09/17 15:00 06/09/17 15:00 (Tylenol 650 Mg/ 20 ml Liq) 650 mg Q6H PRN PO 06/08/17 13:30 Dexmedetomidine HCl 200 mcg/ Sodium Chloride 52 ml @ 4.69 mls/hr TITRATE PRN IV 06/09/17 05:30 (Lipitor) 10 mg HS PO 06/09/17 21:00 06/09/17 20:15 Allergies Allergies Coded Allergies No Known Allergies (Unverified07/20/16) Exam I&O / VS 06/09/17 06/09/17 06/10/17 15:00 23:00 07:00 Output Total 575 ml Balance -575 ml Output Urine Total 425 ml Stool Total 0 ml Gastric Drainage Total 150 ml Vital Signs Date Time Temp Pulse Resp B/P (MAP) Pulse Ox O2 Delivery O2 Flow Rate FiO2 06/09/17 20:42 99 40 06/09/17 18:00 99 06/09/17 16:07 99 40 06/09/17 16:00 99.1 101 16 89/54 (66) 100 06/09/17 16:00 40 06/09/17 16:00 99 06/09/17 14:00 96 06/09/17 12:00 98 06/09/17 12:00 40 06/09/17 12:00 99.0 94 16 91/57 (68) 100 06/09/17 11:50 100 40 06/09/17 10:00 92 06/09/17 08:15 99 40 06/09/17 08:00 40 06/09/17 08:00 98.6 96 16 99/56 (70) 98 06/09/17 08:00 99 06/09/17 07:00 99 Mechanical Ventilator 40 06/09/17 06:00 102 06/09/17 04:03 100 40 06/09/17 04:00 98.2 104 16 104/57 (73) 100 06/09/17 04:00 40 06/09/17 04:00 104 06/09/17 02:00 82 06/09/17 00:00 97.7 86 17 92/62 (72) 99 06/09/17 00:00 86 06/09/17 00:00 40 06/08/17 23:37 99 40 06/08/17 22:00 84 Exam Comments aggitated CN intact MOVES BUE and BLE equally Objective Micro and Labs Laboratory Tests Test 06/08/17 22:20 06/09/17 05:29 Nasal Screen MRSA (PCR) MRSA NOT DETECTED White Blood Count 11.2 Red Blood Count 4.93 Hemoglobin 15.1 Hematocrit 42.3 Mean Corpuscular Volume 85.7 Mean Corpuscular Hemoglobin 30.6 Mean Corpuscular Hemoglobin Concent 35.7 Red Cell Distribution Width 12.1 Platelet Count 227 Mean Platelet Volume 7.4 Neutrophils (%) (Auto) 89.3 Lymphocytes (%) (Auto) 6.0 Monocytes (%) (Auto) 4.6 Eosinophils (%) (Auto) 0.0 Basophils (%) (Auto) 0.1 Neutrophils # (Auto) 10.0 Lymphocytes # (Auto) 0.7 Monocytes # (Auto) 0.5 Eosinophils # (Auto) 0.0 Basophils # (Auto) 0.0 CBC Comment DIFF FINAL Differential Comment Prothrombin Time 10.4 Prothromb Time International Ratio 1.0 Activated Partial Thromboplast Time 24.4 Blood Urea Nitrogen 12 Creatinine 0.90 Random Glucose 144 Total Protein 6.7 Albumin 3.5 Calcium Level 8.4 Phosphorus Level 3.4 Magnesium Level 2.3 Alkaline Phosphatase 78 Aspartate Amino Transf (AST/SGOT) 13 Alanine Aminotransferase (ALT/SGPT) 20 Total Bilirubin 0.5 Sodium Level 142 Potassium Level 3.6 Chloride Level 108 Carbon Dioxide Level 25.6 Anion Gap 8 Estimat Glomerular Filtration Rate 90 Triglycerides Level 92 Cholesterol Level 215 LDL Cholesterol 145 HDL Cholesterol 52.0 Cholesterol/HDL Ratio 4.13 Phenytoin (Dilantin) Level 11.1 Date/Time Source Procedure Growth Status 06/08/17 16:18 Blood Peripheral Aerobic Blood Culture - Preliminary NO GROWTH IN 1 DAY Resulted 06/08/17 16:18 Blood Peripheral Anaerobic Blood Culture - Preliminary NO GROWTH IN 1 DAY Resulted 06/08/17 22:00 Sputum Endotracheal Gram Stain - Final Resulted 06/08/17 22:00 Sputum Endotracheal Sputum Culture - Preliminary HEAVY GROWTH NORMAL RESPIRATORY MAYRA... Resulted 06/08/17 22:20 Urine Catheterized Urine Legionella Antigen - Final PRESUMPTIVE NEGATIVE FOR LEGIONELLA P... Complete 06/08/17 22:20 Urine Catheterized Urine Streptococcus pneumoniae Antigen (M - Final PRESUMPTIVE NEGATIVE FOR STREPTOCOCCU... Complete Marciano Funes MD PhD Jun 09, 2017 21:27
[2017-06-10] VITALS (19 sets, daily range): BP systolic 96–110; BP diastolic 55–69; PULSE 70–100; RESP 16–23; TEMP 98.4–100.2; O2SAT 99–100
[2017-06-10] MEDS: DEXAMETHASONE SOD PHOS 4 MG/ML VIAL IV PUSH SCH ×5 (00:16→23:45)
[2017-06-10] MEDS: CHLORHEXIDINE GLUCONATE 2 % 1 PACK (2 CLOTHS) TOP SCH (03:07)
[2017-06-10] MEDS: RESP: ALBUTEROL 2.5 MG/IPRATROPIUM 0.5 MG NEB (SCH) INH ×4 (03:35→20:59)
[2017-06-10] MEDS: PROPOFOL 1000 MG/100 ML INJ 100 ML IV PRN ×4 (04:04→21:44)
[2017-06-10] MEDS ORDERED: IOHEXOL 350 MG/ML 10 ML VIAL (for RAD DIAG) IVCONTRAST ONE (04:50)
[2017-06-10 05:17] LABS: AUTOMATED NEUTROPHIL # 9.4 TH/MM3 (1.8-7.7); BASOPHIL % 0.1 % (0.0-2.0); HEMATOCRIT 37.3 % (39.0-51.0); HEMOGLOBIN 13.3 GM/DL (13.0-17.0); LYMPHOCYTE # 0.9 TH/MM3 (1.0-4.8); MEAN CELL VOLUME 88.2 FL (80.0-100.0); MEAN CORPUSCULAR HEMOGLOBIN 31.4 PG (27.0-34.0); MEAN CORPUSCULAR HGB CONC 35.6 % (32.0-36.0); MEAN PLATELET VOLUME 7.4 FL (7.0-11.0); MONO % 6.8 % (0.0-8.0); MONOCYTE # 0.7 TH/MM3 (0-0.9); NEUT % 85.1 % (16.0-70.0); PLATELET COUNT 165 TH/MM3 (150-450); RED BLOOD COUNT 4.23 MIL/MM3 (4.50-5.90); RED CELL DISTRIBUTION WIDTH 12.5 % (11.6-17.2)
--- NOTE | 2017-06-10 05:17 | RADRPT ---
EXAM DATE/TIME: 06/10/2017 04:45 [facility] COMPARISON: CT THORAX W CONTRAST, July 20, 2016, 8:57. INDICATIONS : Evaluate for metastatic disease. Shortness of breath. Abnormal brain MRI with multiple ring-enhancing lesions of concern for possible metastatic disease. IV CONTRAST: 80 cc Omnipaque 350 (iohexol) IV ; Cumulative dose for multiple exams. RADIATION DOSE: 5.95 CTDIvol (mGy) ; Combined studies - Thorax/Abdomen/Pelvis MEDICAL HISTORY : None SURGICAL HISTORY : None. ENCOUNTER: Initial ACUITY: 1 day PAIN SCALE: 0/10 LOCATION: chest TECHNIQUE: Volumetric scanning of the chest was performed. Using automated exposure control and adjustment of t he mA and/or kV according to patient size, radiation dose was kept as low as reasonably achievable to obtain optimal diagnostic quality images. DICOM format image data is available electronically for review and comparison. Follow-up recommendations for detected pulmonary nodules are based at a minimum on nodule size and pa tient risk factors according to Fleischner Society Guidelines. FINDINGS: LUNGS: There is no pneumothorax. There is mild consolidation in the posterior left lower lobe. There is mil d underlying emphysema. No concerning pulmonary nodule is visualized. PLEURA: There are small bilateral pleural effusions. MEDIASTINUM: The heart and great vessels demonstrate no acute abnormality. There is no mediastinal or hilar lymph adenopathy. An endotracheal tube and nasogastric tube are present. AXILLAE: Within normal limits. No lymphadenopathy. SKELETAL: Within normal limits for patient age. MISCELLANEOUS: The previous noted right adrenal mass has decreased size. This now measures approximately 1.9 x 1.3 c m in diameter on the prior study measured 3.8 x 2.4 cm. This measures approximately 70 Hounsfield uni ts in density. CONCLUSION: 1. The previously noted right adrenal mass has decreased in size and is nonspecific. 2. Small pleural effusions with mild consolidation in the left lower lobe. 3. No parenchymal mass or adenopathy. Rolo Ward MD on June 10, 2017 at 5:09 Board Certified Radiologist. This report was verified electronically.
--- NOTE | 2017-06-10 05:21 | RADRPT ---
EXAM DATE/TIME: 06/10/2017 04:45 [facility] COMPARISON: CT ABDOMEN & PELVIS W CONTRAST, July 20, 2016, 8:57. INDICATIONS : Evaluate for metastatic disease. Abnormal brain MRI demonstrating multiple ring-enhancing lesions of concern for possible metastatic disease. IV CONTRAST: 80 cc Omnipaque 350 (iohexol) IV ORAL CONTRAST: No oral contrast ingested. RADIATION DOSE: 5.95 CTDIvol (mGy) ; Combined studies - Thorax/Abdomen/Pelvis MEDICAL HISTORY : None SURGICAL HISTORY : None. ENCOUNTER: Initial ACUITY: 1 day PAIN SCALE: 0/10 LOCATION: abdomen TECHNIQUE: Volumetric scanning of the abdomen and pelvis was performed. Using automated exposure control and ad justment of the mA and/or kV according to patient size, radiation dose was kept as low as reasonably achievable to obtain optimal diagnostic quality images. DICOM format image data is available electro nically for review and comparison. FINDINGS: LOWER LUNGS: There are small pleural effusions and mild consolidation in the left lower lobe. LIVER: Homogeneous density without lesion. There is no dilation of the biliary tree. No calcified gallston es. There is vicarious excretion of contrast into the gallbladder. SPLEEN: Normal size without lesion. PANCREAS: Within normal limits. KIDNEYS: Normal in size and shape. There is no mass, stone or hydronephrosis. ADRENAL GLANDS: Left renal gland remains unremarkable. The previously noted right adrenal mass has decreased in size. The current study this measures approximately 1.8 x 1.3 cm in diameter on the prior study this measu red approximately 3.7 x 2.6 cm. This measured roughly 70 Hounsfield units in density. VASCULAR: There is no aortic aneurysm. BOWEL/MESENTERY: The stomach, small bowel, and colon demonstrate no acute abnormality. There is no free intraperitone al air or fluid. ABDOMINAL WALL: Within normal limits. RETROPERITONEUM: There is no lymphadenopathy. BLADDER: No wall thickening or mass. A Harding catheter is present. REPRODUCTIVE: Within normal limits. INGUINAL: There is no lymphadenopathy or hernia. MUSCULOSKELETAL: Within normal limits for patient age. CONCLUSION: 1. No evidence of primary tumor. 2. The previous noted right adrenal mass has decreased in size but is nonspecific 3. Small pleural effusions are again noted with mild consolidation in the left lower lobe.. Rolo Ward MD on June 10, 2017 at 5:16 Board Certified Radiologist. This report was verified electronically.
--- NOTE | 2017-06-10 05:22 | RADRPT ---
EXAM DATE/TIME: 06/10/2017 05:06 [facility] COMPARISON: CHEST SINGLE AP, June 09, 2017, 4:42. INDICATIONS : Respiratory distress. MEDICAL HISTORY : None. SURGICAL HISTORY : None. ENCOUNTER: Subsequent ACUITY: 3 days PAIN SCORE: Non-responsive. LOCATION: Bilateral chest FINDINGS: A single AP portable semierect view of the chest was obtained and again demonstrates the endotracheal tube in place with the tip approximately 4 cm above the earl. A nasogastric tube is seen coursing through the esophagus and stomach. There are no confluent infiltrates or effusions. The heart size is within normal limits with no perihilar edema. CONCLUSION: 1. The patient remains intubated and there is no acute cardiopulmonary disease. Rolo Ward MD on June 10, 2017 at 5:20 Board Certified Radiologist. This report was verified electronically.
[2017-06-10 05:29] LABS: ALBUMIN 3.1 GM/DL (3.4-5.0); ALT (GPT) 16 U/L (12-78); AST (GOT) 13 U/L (15-37); BICARBONATE 27.6 MEQ/L (21.0-32.0); BLOOD UREA NITROGEN 13 MG/DL (7-18); CALCIUM 7.8 MG/DL (8.5-10.1); CHLORIDE 109 MEQ/L (98-107); CREATININE 0.79 MG/DL (0.60-1.30); GLOMERULAR FILTRATION RATE 105 ML/MIN (>89); GLUCOSE,RANDOM 114 MG/DL (74-106); MAGNESIUM 2.5 MG/DL (1.5-2.5); SODIUM (NA) 142 MEQ/L (136-145)
[2017-06-10] MEDS: FOSPHENYTOIN SODIUM 100 MG PE/2 ML VIAL IV SCH ×3 (05:44→21:19)
[2017-06-10] MEDS: INSULIN NovoLIN REGULAR SUPPLEMENTAL SCALE SQ SCH ×3 (05:44→18:00)
[2017-06-10 05:57] LABS: ALKALINE PHOSPHATASE 64 U/L (45-117); FREE T3 1.77 PG/ML (2.18-3.98); FREE T4 0.83 NG/DL (0.76-1.46); PHOSPHORUS 2.3 MG/DL (2.5-4.9); TOTAL BILIRUBIN ADULT 0.3 MG/DL (0.2-1.0); TOTAL PROTEIN 6.1 GM/DL (6.4-8.2)
[2017-06-10] MEDS: SODIUM CHLOR 0.9% 1000 ML INJ 1,000 ML IV SCH ×3 (07:11→23:44)
[2017-06-10] MEDS: CHLORHEXIDINE 0.12% (ORAL KIT) 15 ML CUP MT SCH ×2 (08:00→19:59)
[2017-06-10] MEDS: LANSOPRAZOLE SOLUTAB 30 MG TAB G-TUBE SCH (08:29)
[2017-06-10] MEDS: DOCUSATE SODIUM 50 MG/SENNA 8.6 MG TAB PO SCH ×2 (08:29→19:58)
[2017-06-10] MEDS: SODIUM CHLORIDE 0.9% FLUSH 10 ML FLUSH IV FLUSH SCH ×2 (08:30→19:59)
[2017-06-10] MEDS: ARTIFICIAL TEARS OPTH SOLN 15 ML BTL EACH EYE SCH ×3 (08:35→17:21)
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
[2017-06-10] MEDS: MIDAZOLAM 100 MG/100 ML INJ 100 ML IV PRN ×2 (14:08→23:45)
[2017-06-10] MEDS: fentaNYL DRIP 250 ML IV PRN (14:09)
[2017-06-10] MEDS: MULTIVITAMIN INJ 10 ML, THIAMINE INJ 100 MG, FOLIC ACID INJ 1 MG in SODIUM CHLORID 0.9%... IV SCH (15:45)
[2017-06-10 16:27] LABS: BILIRUBIN, URINE NEG (NEG); BLOOD, URINE NEG (NEG); GLUCOSE,URINE NEG (NEG); KETONE, URINE NEG (NEG); MUCUS URINE FEW /lpf (OCC); NITRITE,URINE NEG (NEG); URINE COLOR YELLOW (YELLW/STRAW); URINE LEUKOCYTE ESTERASE NEG (NEG)
[2017-06-10] MEDS ORDERED: RASS Change Order XX ONE (18:15)
[2017-06-10] MEDS: ATORVASTATIN 10 MG TAB PO SCH (19:58)
[2017-06-10] MEDS: PANTOPRAZOLE SODIUM 40 MG VIAL IV PUSH SCH (19:58)
--- NOTE | 2017-06-10 21:55 | HHI.PR ---
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 Level today in therapeutic range right temporal lobe tumor bx planned for tomorrow Diagnosis/Plan: Subjective Subjective Comments No acute events reported No further sz. Active Medications Current Medications Medications (Trade) Dose Ordered Sig/Gerald Route Start Time Stop Time Status Last Admin (Cerebyx Inj) 100 mgpe Q8HR IV 06/08/17 14:00 06/10/17 21:19 (Ativan Inj) 1 mg Q2H PRN IV PUSH 06/08/17 11:15 (Decadron Inj) 4 mg Q6HR IV PUSH 06/08/17 18:00 06/10/17 17:07 Sodium Chloride 1,000 ml @ 84 mls/hr [id number] IV 06/08/17 12:20 06/10/17 13:07 (NS Flush) 2 ml UNSCH PRN IV FLUSH 06/08/17 12:30 06/09/17 07:36 (NS Flush) 2 ml BID IV FLUSH 06/08/17 21:00 06/10/17 19:59 (Ativan Inj) 1 mg Q1H PRN IV PUSH 06/08/17 12:30 06/09/17 03:36 (Tears Naturale Opth Soln) 1 drop TID EACH EYE 06/08/17 13:00 06/10/17 17:21 (Zofran Inj) 4 mg Q6H PRN IV PUSH 06/08/17 12:30 (Duoneb Neb) 1 ampule Q6HR NEB INH 06/08/17 16:00 06/10/17 20:59 (Albuterol Neb) 2.5 mg Q2HR NEB PRN INH 06/08/17 12:30 Miscellaneous Information 1 Q361D XX 06/08/17 12:30 06/08/17 12:30 (Chlorhexidine 2% Cloth) 3 pack Taper DAILY@04 TOP 06/09/17 04:00 06/05/18 03:59 06/10/17 03:07 (Chlorhexidine 2% Cloth) 3 pack UNSCH PRN TOP 06/08/17 12:30 (Lorin-Colace) 1 tab BID PO 06/08/17 21:00 06/10/17 19:58 (Milk Of Magnesia Liq) 30 ml Q12H PRN PO 06/08/17 12:30 (Senokot) 17.2 mg Q12H PRN PO 06/08/17 12:30 (Dulcolax Supp) 10 mg DAILY PRN RECTAL 06/08/17 12:30 (Lactulose Liq) 30 ml DAILY PRN PO 06/08/17 12:30 (Peridex 0.12% Liq) 15 ml BID@08,20 MT 06/08/17 20:00 06/10/17 19:59 Potassium Chloride 100 ml @ 50 mls/hr Q2H PRN IV 06/08/17 12:30 Potassium Chloride 100 ml @ 50 mls/hr Q2H PRN IV 06/08/17 12:30 (K-Lyte Cl Eff) 50 meq UNSCH PRN PO 06/08/17 12:30 Potassium Chloride 100 ml @ 25 mls/hr UNSCH PRN IV 06/08/17 12:30 Potassium Chloride 100 ml @ 50 mls/hr Q2H PRN IV 06/08/17 12:30 06/08/17 13:06 Magnesium Sulfate 4 gm/Sodium Chloride 100 ml @ 50 mls/hr UNSCH PRN IV 06/08/17 12:30 (Mag-Ox) 800 mg UNSCH PRN PO 06/08/17 12:30 Magnesium Sulfate 2 gm/Sodium Chloride 100 ml @ 50 mls/hr UNSCH PRN IV 06/08/17 12:30 (K-Phos) 2,000 mg Q4H PRN PO 06/08/17 12:30 Sodium Phosphate 30 mmol/Sodium Chloride 250 ml @ 42 mls/hr UNSCH PRN IV 06/08/17 12:30 06/10/17 08:29 (K-Phos) 2,000 mg UNSCH PRN PO/TUBE 06/08/17 12:30 Potassium Phosphate 30 mmol/ Sodium Chloride 260 ml @ 42 mls/hr UNSCH PRN IV 06/08/17 12:30 (D50w (Vial) Inj) 50 ml UNSCH PRN IV PUSH 06/08/17 12:30 (Glucagon Inj) 1 mg UNSCH PRN OTHER 06/08/17 12:30 (NovoLIN R SUPPLEMENTAL SCALE) 1 Q6HR SQ 06/08/17 18:00 06/09/17 00:17 Fentanyl Citrate 250 ml @ 5 mls/hr TITRATE PRN IV 06/08/17 13:15 06/10/17 14:09 Midazolam HCl 100 ml @ 2 mls/hr TITRATE PRN IV 06/08/17 13:15 06/10/17 14:08 Multivitamins 10 ml/Thiamine HCl 100 mg/Folic Acid 1 mg/Sodium Chloride 511.2 ml @ 125 mls/hr Q24H IV 06/09/17 15:00 06/10/17 15:45 (Tylenol 650 Mg/ 20 ml Liq) 650 mg Q6H PRN PO 06/08/17 13:30 Dexmedetomidine HCl 200 mcg/ Sodium Chloride 52 ml @ 4.69 mls/hr TITRATE PRN IV 06/09/17 05:30 (Lipitor) 10 mg HS PO 06/09/17 21:00 06/10/17 19:58 (Protonix Inj) 40 mg Q12HR IV PUSH 06/10/17 21:00 06/10/17 19:58 Propofol 100 ml @ 2.709 mls/ hr TITRATE PRN IV 06/10/17 17:00 06/10/17 21:44 Allergies Allergies Coded Allergies No Known Allergies (Unverified07/20/16) Exam I&O / VS 06/10/17 06/10/17 06/11/17 15:00 23:00 07:00 Intake Total 1700 ml 100 ml Output Total 700 ml Balance 1700 ml -600 ml Intake IV Total 1700 ml 100 ml Output Urine Total 500 ml Stool Total 0 ml Gastric Drainage Total 200 ml Vital Signs Date Time Temp Pulse Resp B/P (MAP) Pulse Ox O2 Delivery O2 Flow Rate FiO2 06/10/17 20:59 99 35 06/10/17 20:00 35 06/10/17 20:00 91 06/10/17 20:00 99.3 91 18 110/69 (83) 99 06/10/17 19:00 98 Mechanical Ventilator 35 06/10/17 18:00 92 06/10/17 16:00 100 06/10/17 16:00 35 06/10/17 16:00 100.2 100 23 110/63 (79) 99 06/10/17 15:37 100 35 06/10/17 14:00 94 06/10/17 12:00 99.3 96 16 107/62 (77) 100 06/10/17 12:00 96 06/10/17 12:00 35 06/10/17 10:58 99 35 06/10/17 10:00 70 06/10/17 08:22 35 06/10/17 08:22 100 35 06/10/17 08:00 71 06/10/17 08:00 98.4 71 16 99/61 (74) 100 06/10/17 08:00 35 06/10/17 07:15 100 Mechanical Ventilator 35 06/10/17 06:00 76 06/10/17 04:00 40 06/10/17 04:00 80 06/10/17 04:00 98.4 80 16 96/55 (69) 100 06/10/17 03:37 100 40 06/10/17 02:00 77 06/10/17 00:15 100 40 06/10/17 00:00 98.4 89 17 97/56 (70) 100 06/10/17 00:00 89 06/10/17 00:00 40 06/09/17 22:00 98 Exam Comments sedated CN intact MOVES BUE and BLE equally Objective Micro and Labs Laboratory Tests Test 06/10/17 04:28 06/10/17 08:36 06/10/17 15:47 White Blood Count 11.0 Red Blood Count 4.23 Hemoglobin 13.3 Hematocrit 37.3 Mean Corpuscular Volume 88.2 Mean Corpuscular Hemoglobin 31.4 Mean Corpuscular Hemoglobin Concent 35.6 Red Cell Distribution Width 12.5 Platelet Count 165 Mean Platelet Volume 7.4 Neutrophils (%) (Auto) 85.1 Lymphocytes (%) (Auto) 8.0 Monocytes (%) (Auto) 6.8 Eosinophils (%) (Auto) 0.0 Basophils (%) (Auto) 0.1 Neutrophils # (Auto) 9.4 Lymphocytes # (Auto) 0.9 Monocytes # (Auto) 0.7 Eosinophils # (Auto) 0.0 Basophils # (Auto) 0.0 CBC Comment DIFF FINAL Differential Comment Blood Urea Nitrogen 13 Creatinine 0.79 Random Glucose 114 Total Protein 6.1 Albumin 3.1 Calcium Level 7.8 Phosphorus Level 2.3 Magnesium Level 2.5 Alkaline Phosphatase 64 Aspartate Amino Transf (AST/SGOT) 13 Alanine Aminotransferase (ALT/SGPT) 16 Total Bilirubin 0.3 Sodium Level 142 Potassium Level 3.8 Chloride Level 109 Carbon Dioxide Level 27.6 Anion Gap 5 Estimat Glomerular Filtration Rate 105 Free Thyroxine 0.83 Free Triiodothyronine (T3) pg/dL 1.77 Phenytoin (Dilantin) Level 11.0 Urine Color YELLOW Urine Turbidity CLEAR Urine pH 6.0 Urine Specific Davidson 1.033 Urine Protein NEG Urine Glucose (UA) NEG Urine Ketones NEG Urine Occult Blood NEG Urine Nitrite NEG Urine Bilirubin NEG Urine Urobilinogen LESS THAN 2.0 Urine Leukocyte Esterase NEG Urine RBC 1 Urine WBC LESS THAN 1 Urine Mucus FEW Microscopic Urinalysis Comment CATH-CULT NOT IND Date/Time Source Procedure Growth Status 06/10/17 16:35 Blood Peripheral Aerobic Blood Culture Pending Received 06/10/17 16:35 Blood Peripheral Anaerobic Blood Culture Pending Received 06/10/17 15:47 Sputum Endotracheal Gram Stain Pending Received 06/10/17 15:47 Sputum Endotracheal Sputum Culture Pending Received 06/08/17 22:20 Urine Catheterized Urine Legionella Antigen - Final PRESUMPTIVE NEGATIVE FOR LEGIONELLA P... Complete 06/08/17 22:20 Urine Catheterized Urine Streptococcus pneumoniae Antigen (M - Final PRESUMPTIVE NEGATIVE FOR STREPTOCOCCU... Complete Marciano Funes MD PhD Jun 10, 2017 21:55
[2017-06-11] VITALS (16 sets, daily range): BP systolic 93–118; BP diastolic 52–76; PULSE 91–124; RESP 16; TEMP 98.8–101.6; O2SAT 95–100
[2017-06-11] MEDS: PROPOFOL 1000 MG/100 ML INJ 100 ML IV PRN ×4 (01:23→18:04)
[2017-06-11] MEDS: CHLORHEXIDINE GLUCONATE 2 % 1 PACK (2 CLOTHS) TOP SCH (03:41)
[2017-06-11] MEDS: fentaNYL DRIP 250 ML IV PRN ×2 (03:45→15:58)
[2017-06-11] MEDS: RESP: ALBUTEROL 2.5 MG/IPRATROPIUM 0.5 MG NEB (SCH) INH ×4 (04:35→20:18)
[2017-06-11 05:29] LABS: PROTHROMBIN TIME - PATIENT 10.2 SEC (9.8-11.6)
[2017-06-11 05:34] LABS: AUTOMATED NEUTROPHIL # 5.7 TH/MM3 (1.8-7.7); BASOPHIL % 0.1 % (0.0-2.0); HEMATOCRIT 36.7 % (39.0-51.0); LYMPH % 6.1 % (9.0-44.0); LYMPHOCYTE # 0.4 TH/MM3 (1.0-4.8); MEAN CELL VOLUME 88.4 FL (80.0-100.0); MEAN CORPUSCULAR HEMOGLOBIN 31.4 PG (27.0-34.0); MEAN CORPUSCULAR HGB CONC 35.5 % (32.0-36.0); MEAN PLATELET VOLUME 7.5 FL (7.0-11.0); MONO % 5.8 % (0.0-8.0); MONOCYTE # 0.4 TH/MM3 (0-0.9); PLATELET COUNT 151 TH/MM3 (150-450); RED BLOOD COUNT 4.15 MIL/MM3 (4.50-5.90); RED CELL DISTRIBUTION WIDTH 12.3 % (11.6-17.2); WHITE BLOOD COUNT 6.5 TH/MM3 (4.0-11.0)
[2017-06-11 05:50] LABS: ALBUMIN 2.7 GM/DL (3.4-5.0); ALT (GPT) 13 U/L (12-78); AST (GOT) 6 U/L (15-37); BICARBONATE 27.2 MEQ/L (21.0-32.0); BLOOD UREA NITROGEN 8 MG/DL (7-18); CALCIUM 7.9 MG/DL (8.5-10.1); CHLORIDE 109 MEQ/L (98-107); GLOMERULAR FILTRATION RATE 144 ML/MIN (>89); GLUCOSE,RANDOM 113 MG/DL (74-106); MAGNESIUM 2.4 MG/DL (1.5-2.5); SODIUM (NA) 144 MEQ/L (136-145)
[2017-06-11 05:53] LABS: ALKALINE PHOSPHATASE 57 U/L (45-117); PHOSPHORUS 2.6 MG/DL (2.5-4.9); TOTAL BILIRUBIN ADULT 0.4 MG/DL (0.2-1.0); TOTAL PROTEIN 5.9 GM/DL (6.4-8.2)
[2017-06-11] MEDS: FOSPHENYTOIN SODIUM 100 MG PE/2 ML VIAL IV SCH ×3 (05:57→21:19)
[2017-06-11] MEDS: INSULIN NovoLIN REGULAR SUPPLEMENTAL SCALE SQ SCH ×4 (05:57→17:21)
[2017-06-11] MEDS: DEXAMETHASONE SOD PHOS 4 MG/ML VIAL IV PUSH SCH ×4 (05:57→23:56)
--- NOTE | 2017-06-11 07:09 | RADRPT ---
EXAM DATE/TIME: 06/11/2017 05:22 [facility] COMPARISON: CHEST SINGLE AP, June 10, 2017, 5:06. INDICATIONS : Shortness of breath. MEDICAL HISTORY : None. SURGICAL HISTORY : None. ENCOUNTER: Subsequent ACUITY: 4 - 6 days PAIN SCORE: Non-responsive. LOCATION: Bilateral chest FINDINGS: A single AP semierect view of the chest was obtained and again demonstrates endotracheal tube with th e tip at the level of thoracic inlet. Nasogastric tube is again seen coursing through the esophagus i nto the stomach. There is new hazy opacity at both lung bases left greater than right. The left hemid iaphragm is now obscured. The left costophrenic angle is blunted. Overlying electrical leads and oxyg en tubing are present. CONCLUSION: 1. New bibasilar opacities left greater than right with blunting of the left costophrenic angle. 2. The patient remains intubated. Rolo Ward MD on June 11, 2017 at 7:07 Board Certified Radiologist. This report was verified electronically.
[2017-06-11] MEDS: CHLORHEXIDINE 0.12% (ORAL KIT) 15 ML CUP MT SCH ×2 (08:00→21:19)
[2017-06-11] MEDS: SODIUM CHLORIDE 0.9% FLUSH 10 ML FLUSH IV FLUSH SCH ×2 (08:06→21:19)
[2017-06-11] MEDS: PANTOPRAZOLE SODIUM 40 MG VIAL IV PUSH SCH ×2 (08:06→21:19)
[2017-06-11] MEDS: DOCUSATE SODIUM 50 MG/SENNA 8.6 MG TAB PO SCH ×2 (08:07→21:18)
[2017-06-11] MEDS: ARTIFICIAL TEARS OPTH SOLN 15 ML BTL EACH EYE SCH ×3 (08:07→17:35)
[2017-06-11] MEDS ORDERED: ACETAMINOPHEN 1000 MG/100 ML 100 ML IV ONE (11:00)
[2017-06-11] MEDS: SODIUM CHLOR 0.9% 1000 ML INJ 1,000 ML IV SCH ×2 (11:08→22:05)
[2017-06-11] MEDS ORDERED: SODIUM CHLORID 0.9% 500 ML INJ 500 ML IV ONE ×2 (12:00→16:45)
[2017-06-11] MEDS ORDERED: PHENYLEPHRINE HCL 10 MG/ML VIAL IV ONE (12:00)
[2017-06-11] MEDS ORDERED: PHENYLEPH/NS 1000 MCG/10 ML SYR IV ONE (12:00)
[2017-06-11] MEDS ORDERED: LACTATED RINGER'S 1000 ML INJ 1,000 ML IV ONE (12:00)
[2017-06-11] MEDS ORDERED: SODIUM CHLOR 0.9% 250 ML INJ 250 ML IV ONE (12:00)
[2017-06-11] MEDS ORDERED: PROPOFOL 200 MG/20 ML AMP IV ONE (12:00)
[2017-06-11] MEDS ORDERED: ROCURONIUM INJ 50 MG/5 ML SYRINGE IV PUSH ONE (12:00)
[2017-06-11] MEDS ORDERED: VANCOMYCIN 500 MG VIAL ONE (12:21)
[2017-06-11] MEDS ORDERED: GELFOAM SIZE 100 ONE (12:21)
[2017-06-11] MEDS ORDERED: BUPIVACAINE/EPINEPHRINE 0.5% PF 30 ML VIAL ONE (12:21)
[2017-06-11] MEDS: MIDAZOLAM 100 MG/100 ML INJ 100 ML IV PRN (12:23)
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
[2017-06-11] MEDS ORDERED: VANCOMYCIN HCL 1000 MG VIAL ONE (14:59)
[2017-06-11] MEDS ORDERED: THROMBIN (TOPICAL) 5,000 UNIT VIAL TOPICAL ONE (15:00)
--- NOTE | 2017-06-11 15:21 | PD.OP ---
Operative Report Date of Surgery: Jun 11, 2017 Preoperative Diagnosis: Multiple right temporal lobe masses Postoperative Diagnosis: Same Procedure: Right temporal chandu hole brain mass biopsy; intraoperative navigation guidance Anesthesia: Gen. endotracheal by Gia colon Surgeon: Alfredo Cantor M.D. Furniture Polisher(s): Chloé Bradford Operation and Findings: Following initiation of general endotracheal anesthesia patient had Harding catheter and sequential boots in place. Head was secured in the 3 pin Gracia headrest and turned 30 the left side. Circl navigation system then registered with the external landmarks and good accuracy confirmed. The right temporal region was then shaved and prepped with Betadine solution and ChloraPrep and sterilely draped. A small linear incision was then infiltrated with 0.5% Marcaine with epinephrine solution and exiting out through the galea and the tendon was muscle fascia which was detached from the underlying skull and the Weitlaner retractor used for exposure. With an automated cloth packer a bur hole was made in the underlying dura cauterized with bipolar cautery and opened the cruciate format. The stereotactic needle was then passed into this mid temporal lobe larger mass and multiple specimens from different quadrants obtained. There is some abnormal tissue with brownish discoloration noted and a small amount of blood which was also aspirated. Pathology sections and cultures were also sent. Gelfoam and thrombin used for hemostasis and retractor then removed. Area irrigated and a gram of vancomycin administered intravenously at this point. Temporalis muscle fascia was approximated using 2- 0 Vicryl sutures and then the galea proximal wheezing 3-0 Vicryl interrupted stitches and final skin closure was with sumit. A sterile dressing was then applied in the Gracia headrest removed. He was then taken back to the surgical intensive care unit. There were no intraoperative complications and all sponge and needle count was correct at the end the procedure. Estimated blood loss was less than 5 cc. Alfredo Cantor MD Jun 11, 2017 15:21
[2017-06-11] MEDS ORDERED: Vancomycin Consult Pharmacy 1 EA OTHER SCH (15:45)
[2017-06-11] MEDS: CEFEPIME INJ 2,000 MG in SODIUM CHLORIDE 0.9% INJ 100 ML IV SCH ×2 (16:33→23:57)
[2017-06-11] MEDS: MULTIVITAMIN INJ 10 ML, THIAMINE INJ 100 MG, FOLIC ACID INJ 1 MG in SODIUM CHLORID 0.9%... IV SCH (16:34)
[2017-06-11 17:49] LABS: AUTOMATED NEUTROPHIL # 5.3 TH/MM3 (1.8-7.7); BASOPHIL % 0.1 % (0.0-2.0); EOSINOPHIL % 0.1 % (0.0-4.0); HEMATOCRIT 34.8 % (39.0-51.0); HEMOGLOBIN 12.4 GM/DL (13.0-17.0); LYMPH % 7.5 % (9.0-44.0); LYMPHOCYTE # 0.5 TH/MM3 (1.0-4.8); MEAN CELL VOLUME 87.7 FL (80.0-100.0); MEAN CORPUSCULAR HEMOGLOBIN 31.4 PG (27.0-34.0); MEAN CORPUSCULAR HGB CONC 35.8 % (32.0-36.0); MEAN PLATELET VOLUME 7.3 FL (7.0-11.0); MONO % 5.5 % (0.0-8.0); MONOCYTE # 0.3 TH/MM3 (0-0.9); NEUT % 86.8 % (16.0-70.0); PLATELET COUNT 143 TH/MM3 (150-450); RED BLOOD COUNT 3.96 MIL/MM3 (4.50-5.90); RED CELL DISTRIBUTION WIDTH 12.4 % (11.6-17.2); WHITE BLOOD COUNT 6.2 TH/MM3 (4.0-11.0)
[2017-06-11 18:07] LABS: ALBUMIN 2.3 GM/DL (3.4-5.0); BICARBONATE 25.6 MEQ/L (21.0-32.0); CALCIUM 7.4 MG/DL (8.5-10.1); CALCIUM-PROTEIN CORRECTED 8.2 MG/DL (8.5-10.1); CREATININE 0.65 MG/DL (0.60-1.30); MAGNESIUM 2.2 MG/DL (1.5-2.5); TOTAL PROTEIN 5.7 GM/DL (6.4-8.2)
[2017-06-11] MEDS: ATORVASTATIN 10 MG TAB PO SCH (21:18)
[2017-06-11] MEDS ORDERED: PHENYLEPHRINE 40 MG in D5W 500 ML IV PRN (21:45)
[2017-06-11] MEDS ORDERED: TERBUTALINE INJ 1 MG/ML AMP SQ PRN (21:45)
[2017-06-11] MEDS: VANCOMYCIN 1,500 MG/NS 500 ML IV SCH ×2 (23:05)
[2017-06-12] VITALS (19 sets, daily range): BP systolic 98–167; BP diastolic 54–69; PULSE 72–100; RESP 16–19; TEMP 97.5–98.2; O2SAT 98–100
[2017-06-12] MEDS: PROPOFOL 1000 MG/100 ML INJ 100 ML IV PRN ×4 (02:22→21:33)
[2017-06-12] MEDS: MIDAZOLAM 100 MG/100 ML INJ 100 ML IV PRN ×2 (02:22→17:45)
[2017-06-12] MEDS: CHLORHEXIDINE GLUCONATE 2 % 1 PACK (2 CLOTHS) TOP SCH (03:29)
[2017-06-12 04:27] LABS: AUTOMATED NEUTROPHIL # 7.2 TH/MM3 (1.8-7.7); BASOPHIL % 0.1 % (0.0-2.0); HEMATOCRIT 32.8 % (39.0-51.0); HEMOGLOBIN 11.7 GM/DL (13.0-17.0); LYMPHOCYTE # 0.3 TH/MM3 (1.0-4.8); MEAN CELL VOLUME 88.3 FL (80.0-100.0); MEAN CORPUSCULAR HEMOGLOBIN 31.4 PG (27.0-34.0); MEAN CORPUSCULAR HGB CONC 35.6 % (32.0-36.0); MEAN PLATELET VOLUME 7.2 FL (7.0-11.0); MONO % 4.6 % (0.0-8.0); MONOCYTE # 0.4 TH/MM3 (0-0.9); NEUT % 91.3 % (16.0-70.0); PLATELET COUNT 138 TH/MM3 (150-450); RED BLOOD COUNT 3.71 MIL/MM3 (4.50-5.90); RED CELL DISTRIBUTION WIDTH 12.6 % (11.6-17.2); WHITE BLOOD COUNT 7.9 TH/MM3 (4.0-11.0)
[2017-06-12 04:44] LABS: ALBUMIN 2.1 GM/DL (3.4-5.0); ALT (GPT) 24 U/L (12-78); AST (GOT) 39 U/L (15-37); BICARBONATE 25.8 MEQ/L (21.0-32.0); BLOOD UREA NITROGEN 11 MG/DL (7-18); CALCIUM 7.5 MG/DL (8.5-10.1); CHLORIDE 111 MEQ/L (98-107); CREATININE 0.49 MG/DL (0.60-1.30); GLOMERULAR FILTRATION RATE 182 ML/MIN (>89); GLUCOSE,RANDOM 135 MG/DL (74-106); MAGNESIUM 2.5 MG/DL (1.5-2.5); PHOSPHORUS 2.2 MG/DL (2.5-4.9); SODIUM (NA) 142 MEQ/L (136-145)
[2017-06-12 04:46] LABS: ALKALINE PHOSPHATASE 55 U/L (45-117); TOTAL BILIRUBIN ADULT 0.5 MG/DL (0.2-1.0); TOTAL PROTEIN 5.8 GM/DL (6.4-8.2)
[2017-06-12] MEDS: RESP: ALBUTEROL 2.5 MG/IPRATROPIUM 0.5 MG NEB (SCH) INH ×3 (04:46→15:40)
--- NOTE | 2017-06-12 04:58 | RADRPT ---
EXAM DATE/TIME: 06/12/2017 04:27 [facility] COMPARISON: MRI BRAIN W & W/O CONTRAST, June 08, 2017, 11:20. CT BRAIN W/O CONTRAST, June 08, 2017, 10: 28. INDICATIONS : Post operative brain surgery. Ring-enhancing lesions in the right temporal lobe. RADIATION DOSE: 48.08 CTDIvol (mGy) MEDICAL HISTORY : Non-responsive. SURGICAL HISTORY : Non-responsive. ENCOUNTER: Initial ACUITY: 1 day PAIN SCALE: Non-responsive LOCATION: cranial TECHNIQUE: Multiple contiguous axial images were obtained of the head. Using automated exposure control and adj ustment of the mA and/or kV according to patient size, radiation dose was kept as low as reasonably a chievable to obtain optimal diagnostic quality images. DICOM format image data is available electro nically for review and comparison. FINDINGS: CEREBRUM: The ventricles are normal for age. There is a new focal area of high density hemorrhage measuring 1 c m in the right temporal lobe with surrounding edema. The faint slightly high density lesion and low a ttenuation areas in the right temporal lobe are otherwise unchanged. No extra-axial fluid collections are seen. POSTERIOR FOSSA: The cerebellum and brainstem are intact. The 4th ventricle is midline. The cerebellopontine angle i s unremarkable. EXTRACRANIAL: The visualized portion of the orbits is intact. SKULL: A chandu hole is present in the right temporal lobe with overlying soft tissue swelling and surgical cl ip. No evidence of skull fracture. CONCLUSION: 1. New 1 cm area of high density hemorrhage in right temporal lobe at site of biopsy. 2. Patchy hypodensity and edema remain in the right temporal lobe. Rolo Ward MD on June 12, 2017 at 4:53 Board Certified Radiologist. This report was verified electronically.
[2017-06-12] MEDS: INSULIN NovoLIN REGULAR SUPPLEMENTAL SCALE SQ SCH ×4 (05:27→17:05)
[2017-06-12] MEDS: DEXAMETHASONE SOD PHOS 4 MG/ML VIAL IV PUSH SCH ×3 (05:27→17:18)
[2017-06-12] MEDS: FOSPHENYTOIN SODIUM 100 MG PE/2 ML VIAL IV SCH ×3 (05:27→21:32)
[2017-06-12] MEDS: VANCOMYCIN 1,500 MG/NS 500 ML IV SCH ×4 (06:29→14:08)
[2017-06-12] MEDS: fentaNYL DRIP 250 ML IV PRN ×2 (06:31→17:45)
--- NOTE | 2017-06-12 06:44 | RADRPT ---
EXAM DATE/TIME: 06/12/2017 05:56 [place] COMPARISON: CHEST SINGLE AP, June 11, 2017, 5:22. INDICATIONS : Shortness of breath. MEDICAL HISTORY : None. SURGICAL HISTORY : None. ENCOUNTER: Subsequent ACUITY: 4 - 6 days PAIN SCORE: Non-responsive. LOCATION: Bilateral chest FINDINGS: A single AP semierect portable view of the chest was obtained and demonstrates endotracheal tube in p lace with the tip at the level of thoracic inlet. Bilateral airspace opacities remain in the perihila r regions and both lung bases. The left hemidiaphragm remains obscured. Overlying oxygen tubing elect rocardiogram leads are noted. A nasogastric tube remains in place. CONCLUSION: No significant change. Rolo Ward MD on June 12, 2017 at 6:42 Board Certified Radiologist. This report was verified electronically.
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
[2017-06-12] MEDS: CHLORHEXIDINE 0.12% (ORAL KIT) 15 ML CUP MT SCH ×2 (08:15→20:58)
[2017-06-12] MEDS: DOCUSATE SODIUM 50 MG/SENNA 8.6 MG TAB PO SCH ×2 (09:05→21:32)
[2017-06-12] MEDS: CEFEPIME INJ 2,000 MG in SODIUM CHLORIDE 0.9% INJ 100 ML IV SCH ×2 (09:05→17:18)
[2017-06-12] MEDS: PANTOPRAZOLE SODIUM 40 MG VIAL IV PUSH SCH ×2 (09:05→21:31)
[2017-06-12] MEDS: ARTIFICIAL TEARS OPTH SOLN 15 ML BTL EACH EYE SCH ×3 (09:06→17:18)
[2017-06-12] MEDS: SODIUM CHLORIDE 0.9% FLUSH 10 ML FLUSH IV FLUSH SCH ×2 (09:06→20:58)
[2017-06-12] MEDS: SODIUM CHLOR 0.9% 1000 ML INJ 1,000 ML IV SCH (11:43)
[2017-06-12] MEDS: MULTIVITAMIN INJ 10 ML, THIAMINE INJ 100 MG, FOLIC ACID INJ 1 MG in SODIUM CHLORID 0.9%... IV SCH (14:08)
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
[2017-06-12] MEDS: RESP: ALBUTEROL 2.5 MG/3 ML NEB (PRN) INH (20:04)
[2017-06-12] MEDS: ATORVASTATIN 10 MG TAB PO SCH (21:32)
[2017-06-12] MEDS ORDERED: PHARMACY ORDERED LAB ONE (23:00)
[2017-06-13] VITALS (20 sets, daily range): BP systolic 110–148; BP diastolic 56–81; PULSE 69–129; RESP 16–20; TEMP 98.1–101.1; O2SAT 90–100
[2017-06-13] MEDS: VANCOMYCIN 1,500 MG/NS 500 ML IV SCH ×2 (00:11)
[2017-06-13] MEDS: DEXAMETHASONE SOD PHOS 4 MG/ML VIAL IV PUSH SCH ×4 (00:14→21:14)
[2017-06-13] MEDS: CEFEPIME INJ 2,000 MG in SODIUM CHLORIDE 0.9% INJ 100 ML IV SCH ×3 (01:05→16:24)
[2017-06-13] MEDS: PROPOFOL 1000 MG/100 ML INJ 100 ML IV PRN ×5 (02:22→20:46)
[2017-06-13] MEDS: CHLORHEXIDINE GLUCONATE 2 % 1 PACK (2 CLOTHS) TOP SCH (03:22)
[2017-06-13] MEDS: FOSPHENYTOIN SODIUM 100 MG PE/2 ML VIAL IV SCH ×3 (05:28→21:14)
[2017-06-13 05:41] LABS: AUTOMATED NEUTROPHIL # 9.2 TH/MM3 (1.8-7.7); BASOPHIL % 0.1 % (0.0-2.0); HEMATOCRIT 30.8 % (39.0-51.0); LYMPHOCYTE # 0.4 TH/MM3 (1.0-4.8); MEAN CELL VOLUME 88.1 FL (80.0-100.0); MEAN CORPUSCULAR HEMOGLOBIN 31.4 PG (27.0-34.0); MEAN CORPUSCULAR HGB CONC 35.7 % (32.0-36.0); MEAN PLATELET VOLUME 7.6 FL (7.0-11.0); MONO % 5.5 % (0.0-8.0); MONOCYTE # 0.6 TH/MM3 (0-0.9); NEUT % 90.4 % (16.0-70.0); PLATELET COUNT 162 TH/MM3 (150-450); RED BLOOD COUNT 3.49 MIL/MM3 (4.50-5.90); RED CELL DISTRIBUTION WIDTH 12.3 % (11.6-17.2); WHITE BLOOD COUNT 10.2 TH/MM3 (4.0-11.0)
[2017-06-13] MEDS: INSULIN NovoLIN REGULAR SUPPLEMENTAL SCALE SQ SCH ×5 (06:00→23:00)
[2017-06-13 06:01] LABS: ALBUMIN 1.9 GM/DL (3.4-5.0); ALT (GPT) 25 U/L (12-78); AST (GOT) 30 U/L (15-37); BICARBONATE 24.7 MEQ/L (21.0-32.0); BLOOD UREA NITROGEN 15 MG/DL (7-18); CALCIUM 7.8 MG/DL (8.5-10.1); CHLORIDE 110 MEQ/L (98-107); CREATININE 0.38 MG/DL (0.60-1.30); GLOMERULAR FILTRATION RATE 245 ML/MIN (>89); GLUCOSE,RANDOM 121 MG/DL (74-106); MAGNESIUM 2.6 MG/DL (1.5-2.5); PHOSPHORUS 1.9 MG/DL (2.5-4.9); SODIUM (NA) 142 MEQ/L (136-145)
[2017-06-13 06:03] LABS: ALKALINE PHOSPHATASE 70 U/L (45-117); TOTAL BILIRUBIN ADULT 0.4 MG/DL (0.2-1.0); TOTAL PROTEIN 5.8 GM/DL (6.4-8.2)
[2017-06-13] MEDS: SODIUM CHLOR 0.9% 1000 ML INJ 1,000 ML IV SCH (06:09)
[2017-06-13] MEDS: LORazepam 2 MG/ML VIAL IV PUSH PRN ×2 (06:15→16:26)
[2017-06-13] MEDS: fentaNYL DRIP 250 ML IV PRN ×2 (06:31→18:18)
--- NOTE | 2017-06-13 06:45 | MG ---
cc: REHANA MOISE Lab No: [id number] Date: 06/08/2017 Age: ___ Sex: M Race: ___ TECHNIQUE This is 17 channel EEG. DESCRIPTION The background rhythm reveals moderate slowing in the delta frequency and also theta frequency ranging from 4 Hz to 6 Hz. There is some beta activity. Occasional activity which resembled sleep spindles is identified. There are no lateralizing features. There are no epileptic features present. Hyperventilation was not done. Photic stimulation results in a poor driving response. INTERPRETATION Abnormal study consistent with a diffuse encephalopathy. MD EMY Montoya/MARIPOSA /7:02 PM /6:32 AM
[2017-06-13] MEDS: PANTOPRAZOLE SODIUM 40 MG VIAL IV PUSH SCH ×2 (08:08→20:31)
[2017-06-13] MEDS: CHLORHEXIDINE 0.12% (ORAL KIT) 15 ML CUP MT SCH ×2 (08:09→20:30)
[2017-06-13] MEDS: DOCUSATE SODIUM 50 MG/SENNA 8.6 MG TAB PO SCH ×2 (08:10→20:31)
[2017-06-13] MEDS: ARTIFICIAL TEARS OPTH SOLN 15 ML BTL EACH EYE SCH ×3 (08:10→18:00)
[2017-06-13] MEDS: SODIUM CHLORIDE 0.9% FLUSH 10 ML FLUSH IV FLUSH SCH ×2 (08:10→20:30)
[2017-06-13] MEDS: DEXMEDETOMIDINE INJ 200 MCG in SODIUM CHLORIDE 0.9% INJ 50 ML IV PRN ×3 (08:11→15:42)
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
[2017-06-13] MEDS ORDERED: FUROSEMIDE 20 MG/2 ML VIAL IV PUSH ONE (09:00)
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
[2017-06-13] MEDS ORDERED: MIDAZOLAM HCL 5 MG/ML VIAL (1 ML) ONE (14:48)
[2017-06-13] MEDS ORDERED: NOREPINEPHRINE-DEXTROSE DRIP 250 ML IV ONE (14:48)
[2017-06-13] MEDS ORDERED: ROCURONIUM INJ 50 MG/5 ML VIAL ONE (14:49)
[2017-06-13] MEDS ORDERED: ROCURONIUM INJ 50 MG/5 ML VIAL IV ONE (15:00)
[2017-06-13] MEDS ORDERED: NOREPINEPHRINE 4 MG/D5W 250 ML IV PRN (15:00)
[2017-06-13] MEDS ORDERED: MIDAZOLAM HCL 5 MG/ML VIAL (1 ML) IV PUSH ONE (15:00)
[2017-06-13] MEDS ORDERED: MORPHINE SULFATE 2 MG/ML INJ IM PRN (15:00)
--- NOTE | 2017-06-13 15:20 | PD.PROCEDR ---
Procedure Note Procedure Endotracheal Intubation Diagnosis: acute hypoxic respiratory failure Indications: worsening hypoxia, tachypnea and agitation Consent: procedure was discussed in detail with patient's and she agrees Anesthesia: midazolam 5 mg, propofol 70 mg, rocuronium 100 mg Description of the Procedure: The patient was positioned in the sniffing position. Pre-oxygenation was performed using a BMV with PEEP valve. Anesthesia was induced via rapid sequence. A videolaryngoscope (LoudClickilot) was used for laryngoscopy and a Grade 1 view was obtained. A size 8mm cuffed endotracheal tube was inserted atraumatically through the vocal cords. Confirmation of correct endotracheal tube placement was made by equal and bilateral breath sounds and colorimetric CO2 detection. The endotracheal tube was secured at 24 cm at the teeth. There were no immediate complications noted. The patient remained hemodynamically stable throughout the procedure. A chest x-ray has been ordered. I personally performed the procedure. Isreal Brasher MD Jun 13, 2017 15:20
[2017-06-13] MEDS: MULTIVITAMIN INJ 10 ML, THIAMINE INJ 100 MG, FOLIC ACID INJ 1 MG in SODIUM CHLORID 0.9%... IV SCH (15:43)
--- NOTE | 2017-06-13 16:15 | RADRPT ---
EXAM DATE/TIME: 06/13/2017 15:48 [facility] COMPARISON: CHEST SINGLE AP, June 09, 2017, 4:42. CT THORAX W CONTRAST, June 10, 2017, 4:45. ABDOMEN SI NGLE VIEW, June 13, 2017, 15:52. CHEST SINGLE AP, June 12, 2017, 5:56. INDICATIONS : Evaluate for respiratory failure. MEDICAL HISTORY : None. SURGICAL HISTORY : None. ENCOUNTER: Subsequent ACUITY: 4 - 6 days PAIN SCORE: Non-responsive. LOCATION: chest FINDINGS: The ET tube is in satisfactory position. There is an oral gastric tube present. The tip is within the stomach. There is minimal effusion at the left base. There are bilateral infiltrates in the lung bas es. These are similar to the prior exam. The visualized bony structures are grossly intact. CONCLUSION: 1. The oral gastric tube is in satisfactory position. The tip is within the stomach. 2. Minimal effusion at the left base and bilateral basilar infiltrates unchanged from previous. Sin Gillette MD on June 13, 2017 at 16:10 Board Certified Radiologist. This report was verified electronically.
--- NOTE | 2017-06-13 16:53 | RADRPT ---
EXAM DATE/TIME: 06/13/2017 15:52 [facility] COMPARISON: No previous studies available for comparison. INDICATIONS : Evaluate for OG tube placement. MEDICAL HISTORY : None. SURGICAL HISTORY : None. ENCOUNTER: Subsequent ACUITY: 1 day PAIN SCORE: Non-responsive. LOCATION: Abdomen FINDINGS: A gastric tube coils in the stomach. Visualized intestinal gas pattern is nonspecific and benign. The re are no suspicious calcific densities. Regional skeleton appears grossly intact. CONCLUSION: NG tube in the stomach Cruz Buck MD on June 13, 2017 at 16:50 Board Certified Radiologist. This report was verified electronically.
[2017-06-13] MEDS ORDERED: NOREPINEPHRINE INJ 4 MG in SODIUM CHLOR 0.9% 250 ML INJ 250 ML IV PRN (18:00)
[2017-06-13] MEDS: DEXMEDETOMIDINE INJ 1,000 MCG in SODIUM CHLOR 0.9% 250 ML INJ 240 ML IV PRN (18:17)
--- NOTE | 2017-06-13 19:04 | HHI.PR ---
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 right temporal lobe tumor---follow up pathology. Diagnosis/Plan: Subjective Subjective Comments No acute events reported No sz on cerebyx with therapeutic level Active Medications Current Medications Medications (Trade) Dose Ordered Sig/Gerald Route Start Time Stop Time Status Last Admin (Cerebyx Inj) 100 mgpe Q8HR IV 06/08/17 14:00 06/13/17 13:49 (Ativan Inj) 1 mg Q2H PRN IV PUSH 06/08/17 11:15 (NS Flush) 2 ml UNSCH PRN IV FLUSH 06/08/17 12:30 06/09/17 07:36 (NS Flush) 2 ml BID IV FLUSH 06/08/17 21:00 06/13/17 08:10 (Ativan Inj) 1 mg Q1H PRN IV PUSH 06/08/17 12:30 06/13/17 16:26 (Tears Naturale Opth Soln) 1 drop TID EACH EYE 06/08/17 13:00 06/13/17 18:00 (Zofran Inj) 4 mg Q6H PRN IV PUSH 06/08/17 12:30 (Albuterol Neb) 2.5 mg Q2HR NEB PRN INH 06/08/17 12:30 06/12/17 20:04 Miscellaneous Information 1 Q361D XX 06/08/17 12:30 06/08/17 12:30 (Chlorhexidine 2% Cloth) 3 pack Taper DAILY@04 TOP 06/09/17 04:00 06/05/18 03:59 06/10/17 03:07 (Chlorhexidine 2% Cloth) 3 pack UNSCH PRN TOP 06/08/17 12:30 (Lorin-Colace) 1 tab BID PO 06/08/17 21:00 06/12/17 21:32 (Milk Of Magnesia Liq) 30 ml Q12H PRN PO 06/08/17 12:30 (Senokot) 17.2 mg Q12H PRN PO 06/08/17 12:30 (Dulcolax Supp) 10 mg DAILY PRN RECTAL 06/08/17 12:30 (Lactulose Liq) 30 ml DAILY PRN PO 06/08/17 12:30 (Peridex 0.12% Liq) 15 ml BID@08,20 MT 06/08/17 20:00 06/13/17 08:09 Potassium Chloride 100 ml @ 50 mls/hr Q2H PRN IV 06/08/17 12:30 Potassium Chloride 100 ml @ 50 mls/hr Q2H PRN IV 06/08/17 12:30 (K-Lyte Cl Eff) 50 meq UNSCH PRN PO 06/08/17 12:30 Potassium Chloride 100 ml @ 25 mls/hr UNSCH PRN IV 06/08/17 12:30 Potassium Chloride 100 ml @ 50 mls/hr Q2H PRN IV 06/08/17 12:30 06/08/17 13:06 Magnesium Sulfate 4 gm/Sodium Chloride 100 ml @ 50 mls/hr UNSCH PRN IV 06/08/17 12:30 (Mag-Ox) 800 mg UNSCH PRN PO 06/08/17 12:30 Magnesium Sulfate 2 gm/Sodium Chloride 100 ml @ 50 mls/hr UNSCH PRN IV 06/08/17 12:30 (K-Phos) 2,000 mg Q4H PRN PO 06/08/17 12:30 Sodium Phosphate 30 mmol/Sodium Chloride 250 ml @ 42 mls/hr UNSCH PRN IV 06/08/17 12:30 06/10/17 08:29 (K-Phos) 2,000 mg UNSCH PRN PO/TUBE 06/08/17 12:30 Potassium Phosphate 30 mmol/ Sodium Chloride 260 ml @ 42 mls/hr UNSCH PRN IV 06/08/17 12:30 (D50w (Vial) Inj) 50 ml UNSCH PRN IV PUSH 06/08/17 12:30 (Glucagon Inj) 1 mg UNSCH PRN OTHER 06/08/17 12:30 (NovoLIN R SUPPLEMENTAL SCALE) 1 Q6HR SQ 06/08/17 18:00 06/09/17 00:17 Fentanyl Citrate 250 ml @ 5 mls/hr TITRATE PRN IV 06/08/17 13:15 06/13/17 18:18 Multivitamins 10 ml/Thiamine HCl 100 mg/Folic Acid 1 mg/Sodium Chloride 511.2 ml @ 125 mls/hr Q24H IV 06/09/17 15:00 06/13/17 15:43 (Tylenol 650 Mg/ 20 ml Liq) 650 mg Q6H PRN PO 06/08/17 13:30 (Lipitor) 10 mg HS PO 06/09/17 21:00 06/12/17 21:32 (Protonix Inj) 40 mg Q12HR IV PUSH 06/10/17 21:00 06/13/17 08:08 Propofol 100 ml @ 2.709 mls/ hr TITRATE PRN IV 06/10/17 17:00 06/13/17 18:16 Pharmacy Profile Note 0 ml @ 0 mls/hr UNSCH OTHER 06/11/17 15:45 Cefepime HCl 2000 mg/Sodium Chloride 100 ml @ 200 mls/hr Q8H IV 06/11/17 17:00 06/13/17 16:24 Phenylephrine HCl 40 mg/Dextrose 500 ml @ 30 mls/hr TITRATE PRN IV 06/11/17 21:45 (Brethine Inj) 1 mg UNSCH PRN SQ 06/11/17 21:45 Vancomycin HCl 1750 mg/Sodium Chloride 517.5 ml @ 250 mls/hr Q8H IV 06/14/17 09:00 Miscellaneous Information SPECIFIC LAB TO BE MEJIA... ONCE ONCE .XX 06/14/17 08:45 06/14/17 08:46 (Decadron Inj) 4 mg Q8HR IV PUSH 06/13/17 14:00 06/13/17 13:50 (Morphine Inj) 2 mg Q3H PRN IM 06/13/17 15:00 Norepinephrine Bitartrate 4 mg/ Sodium Chloride 254 ml @ 7.62 mls/hr TITRATE PRN IV 06/13/17 18:00 Dexmedetomidine HCl 1000 mcg/ Sodium Chloride 250 ml @ 4.51 mls/hr TITRATE PRN IV 06/13/17 17:30 06/13/17 18:17 (ZyPREXA) 5 mg HS PO 06/13/17 21:00 (Free Water) 150 ml Q8HR TUBE 06/13/17 22:00 Allergies Allergies Coded Allergies No Known Allergies (Unverified07/20/16) Exam I&O / VS 06/13/17 06/13/17 06/14/17 15:00 23:00 07:00 Intake Total 452 ml 604 ml Output Total 2200 ml Balance 452 ml -1596 ml Intake IV Total 452 ml 604 ml Output Urine Total 2200 ml # Bowel Movements 0 Vital Signs Date Time Temp Pulse Resp B/P (MAP) Pulse Ox O2 Delivery O2 Flow Rate FiO2 06/13/17 18:00 88 06/13/17 16:00 90 06/13/17 16:00 113 06/13/17 16:00 101.1 113 20 147/81 (103) 94 Arterial Line 06/13/17 15:07 93 100 06/13/17 14:00 129 06/13/17 12:15 97 100 06/13/17 12:00 100.0 90 19 147/69 (95) 97 06/13/17 12:00 92 06/13/17 11:45 90 Partial Rebreather 15 06/13/17 10:46 100 40 06/13/17 10:42 40 06/13/17 10:00 70 06/13/17 08:37 100 40 06/13/17 08:00 40 06/13/17 08:00 99.0 80 16 148/76 (100) 98 06/13/17 08:00 70 06/13/17 07:00 98 Mechanical Ventilator 40 06/13/17 06:00 82 06/13/17 04:00 98.4 70 16 114/59 (77) 97 06/13/17 04:00 40 06/13/17 04:00 70 06/13/17 03:48 97 40 06/13/17 02:00 69 06/13/17 00:28 97 40 06/13/17 00:00 70 06/13/17 00:00 98.1 70 16 110/56 (74) 98 06/13/17 00:00 40 06/12/17 22:00 72 06/12/17 20:04 98 40 06/12/17 20:00 74 06/12/17 20:00 98.2 86 19 144/64 (90) 99 06/12/17 20:00 40 Exam Comments sedated pupils 2 mm symmetric min responsive. MOVES BUE and BLE equally Objective Micro and Labs Laboratory Tests Test 06/12/17 23:04 06/13/17 04:30 06/13/17 04:53 06/13/17 11:46 Vancomycin Level Trough 10.3 White Blood Count 10.2 Red Blood Count 3.49 Hemoglobin 11.0 Hematocrit 30.8 Mean Corpuscular Volume 88.1 Mean Corpuscular Hemoglobin 31.4 Mean Corpuscular Hemoglobin Concent 35.7 Red Cell Distribution Width 12.3 Platelet Count 162 Mean Platelet Volume 7.6 Neutrophils (%) (Auto) 90.4 Lymphocytes (%) (Auto) 4.0 Monocytes (%) (Auto) 5.5 Eosinophils (%) (Auto) 0.0 Basophils (%) (Auto) 0.1 Neutrophils # (Auto) 9.2 Lymphocytes # (Auto) 0.4 Monocytes # (Auto) 0.6 Eosinophils # (Auto) 0.0 Basophils # (Auto) 0.0 CBC Comment DIFF FINAL Differential Comment Blood Urea Nitrogen 15 Creatinine 0.38 Random Glucose 121 Total Protein 5.8 Albumin 1.9 Calcium Level 7.8 Phosphorus Level 1.9 Magnesium Level 2.6 Alkaline Phosphatase 70 Aspartate Amino Transf (AST/SGOT) 30 Alanine Aminotransferase (ALT/SGPT) 25 Total Bilirubin 0.4 Sodium Level 142 Potassium Level 4.1 Chloride Level 110 Carbon Dioxide Level 24.7 Anion Gap 7 Estimat Glomerular Filtration Rate 245 Blood Gas Puncture Site ART LINE ART LINE Blood Gas Patient Temperature 98.6 98.6 Blood Gas HCO3 24 26 Blood Gas Base Excess -0.4 2.6 Blood Gas Oxygen Saturation 96 83 Arterial Blood pH 7.38 7.46 Arterial Blood Partial Pressure CO2 41 37 Arterial Blood Partial Pressure O2 97 46 Arterial Blood Oxygen Content 14.9 14.3 Arterial Blood Carboxyhemoglobin 1.3 1.3 Arterial Blood Methemoglobin 1.0 0.8 Blood Gas Hemoglobin 10.9 12.3 Oxygen Delivery Device VENTILATOR MASK Blood Gas Ventilator Setting PRVC/AC Blood Gas Inspired Oxygen 40 Blood Gas Liter Flow 8 Test 06/13/17 12:58 06/13/17 16:50 Blood Gas Puncture Site ART LINE LT RADIAL Blood Gas Patient Temperature 98.6 98.6 Blood Gas HCO3 25 25 Blood Gas Base Excess 1.6 1.2 Blood Gas Oxygen Saturation 92 95 Arterial Blood pH 7.47 7.41 Arterial Blood Partial Pressure CO2 35 41 Arterial Blood Partial Pressure O2 64 81 Arterial Blood Oxygen Content 16.1 20.5 Arterial Blood Carboxyhemoglobin 1.2 1.0 Arterial Blood Methemoglobin 0.9 0.9 Blood Gas Hemoglobin 12.5 15.4 Oxygen Delivery Device BIPAP VENTILATOR Blood Gas Ventilator Setting IPAP12/EPAP7 Blood Gas Inspired Oxygen 70 90 Date/Time Source Procedure Growth Status 06/10/17 16:35 Blood Peripheral Aerobic Blood Culture - Preliminary NO GROWTH IN 3 DAYS Resulted 06/10/17 16:35 Blood Peripheral Anaerobic Blood Culture - Preliminary NO GROWTH IN 3 DAYS Resulted 06/12/17 10:55 Gastric Gastric Occult Blood - Final GASTROCCULT NEGATIVE Complete 06/10/17 15:47 Sputum Endotracheal Gram Stain - Final Complete 06/10/17 15:47 Sputum Culture - Final Staphylococcus Aureus Beta Strep Not Group A Complete 06/08/17 22:20 Urine Catheterized Urine Legionella Antigen - Final PRESUMPTIVE NEGATIVE FOR LEGIONELLA P... Complete 06/08/17 22:20 Urine Catheterized Urine Streptococcus pneumoniae Antigen (M - Final PRESUMPTIVE NEGATIVE FOR STREPTOCOCCU... Complete 06/11/17 14:49 Wound Other Fungal Smear - Final NO FUNGAL ELEMENTS SEEN. Resulted 06/11/17 14:49 Wound Other Fungal Culture Pending Resulted Marciano Funes MD PhD Jun 13, 2017 19:04
[2017-06-13] MEDS: ATORVASTATIN 10 MG TAB PO SCH (20:31)
[2017-06-13] MEDS: OLANZapine 5 MG TAB PO SCH (20:35)
[2017-06-13] MEDS: FREE WATER TUBE SCH (21:14)
--- NOTE | 2017-06-13 23:11 | EKG ---
Date Performed: 06/13/2017 Time Performed: 16:30:43 PTAGE: 47 years EKG: Sinus rhythm NORMAL ECG PREVIOUS TRACING : 06/08/2017 10.56 No significant change from previous tracing noted. DOCTOR: Silvestre Garzon Interpretating Date/Time 06/13/2017 23:10:26
[2017-06-14] VITALS (20 sets, daily range): BP systolic 116–133; BP diastolic 72–83; PULSE 70–89; RESP 16–21; TEMP 99–100.4; O2SAT 92–100
[2017-06-14] MEDS: PROPOFOL 1000 MG/100 ML INJ 100 ML IV PRN ×6 (00:31→22:40)
[2017-06-14] MEDS: CEFEPIME INJ 2,000 MG in SODIUM CHLORIDE 0.9% INJ 100 ML IV SCH ×3 (00:31→17:50)
[2017-06-14] MEDS: DEXMEDETOMIDINE INJ 1,000 MCG in SODIUM CHLOR 0.9% 250 ML INJ 240 ML IV PRN ×3 (02:23→15:45)
[2017-06-14] MEDS: CHLORHEXIDINE GLUCONATE 2 % 1 PACK (2 CLOTHS) TOP SCH (04:00)
[2017-06-14] MEDS: fentaNYL DRIP 250 ML IV PRN ×2 (04:02→15:13)
[2017-06-14] MEDS: DEXAMETHASONE SOD PHOS 4 MG/ML VIAL IV PUSH SCH ×3 (05:49→22:12)
[2017-06-14] MEDS: FOSPHENYTOIN SODIUM 100 MG PE/2 ML VIAL IV SCH ×3 (05:49→22:12)
[2017-06-14] MEDS: INSULIN NovoLIN REGULAR SUPPLEMENTAL SCALE SQ SCH ×4 (06:00→23:51)
[2017-06-14 06:07] LABS: AUTOMATED NEUTROPHIL # 11.6 TH/MM3 (1.8-7.7); BASOPHIL % 0.1 % (0.0-2.0); EOSINOPHIL # 0.3 TH/MM3 (0-0.4); HEMATOCRIT 33.5 % (39.0-51.0); HEMOGLOBIN 11.9 GM/DL (13.0-17.0); LYMPH % 6.9 % (9.0-44.0); LYMPHOCYTE # 0.9 TH/MM3 (1.0-4.8); MEAN CORPUSCULAR HEMOGLOBIN 30.9 PG (27.0-34.0); MEAN CORPUSCULAR HGB CONC 35.5 % (32.0-36.0); MEAN PLATELET VOLUME 7.2 FL (7.0-11.0); MONO % 5.6 % (0.0-8.0); MONOCYTE # 0.8 TH/MM3 (0-0.9); NEUT % 85.4 % (16.0-70.0); PLATELET COUNT 206 TH/MM3 (150-450); RED BLOOD COUNT 3.85 MIL/MM3 (4.50-5.90); RED CELL DISTRIBUTION WIDTH 12.1 % (11.6-17.2); WHITE BLOOD COUNT 13.6 TH/MM3 (4.0-11.0)
--- NOTE | 2017-06-14 06:17 | RADRPT ---
EXAM DATE/TIME: 06/14/2017 04:46 [facility] COMPARISON: CHEST SINGLE AP, June 13, 2017, 15:48. INDICATIONS : Respiratory failure. MEDICAL HISTORY : None. SURGICAL HISTORY : None. ENCOUNTER: Subsequent ACUITY: 4 - 6 days PAIN SCORE: Non-responsive. LOCATION: Bilateral chest FINDINGS: Persistent parenchymal consolidation right base and left mid lung and base. No large effusion seen. N o pneumothorax. Heart size stable, normal. Endotracheal tube tip is about 5 cm above the earl. Nasogastric tube courses into the stomach. CONCLUSION: Left greater than right parenchymal consolidation without significant change. Cruz To MD on June 14, 2017 at 6:15 Board Certified Radiologist. This report was verified electronically.
[2017-06-14 06:40] LABS: ALBUMIN 2.1 GM/DL (3.4-5.0); ALKALINE PHOSPHATASE 74 U/L (45-117); ALT (GPT) 22 U/L (12-78); AST (GOT) 16 U/L (15-37); BICARBONATE 27.1 MEQ/L (21.0-32.0); BLOOD UREA NITROGEN 14 MG/DL (7-18); CALCIUM 8.3 MG/DL (8.5-10.1); CHLORIDE 109 MEQ/L (98-107); CREATININE 0.52 MG/DL (0.60-1.30); GLOMERULAR FILTRATION RATE 170 ML/MIN (>89); GLUCOSE,RANDOM 92 MG/DL (74-106); MAGNESIUM 1.9 MG/DL (1.5-2.5); PHOSPHORUS 2.2 MG/DL (2.5-4.9); SODIUM (NA) 143 MEQ/L (136-145); TOTAL BILIRUBIN ADULT 0.6 MG/DL (0.2-1.0); TOTAL PROTEIN 6.3 GM/DL (6.4-8.2)
[2017-06-14] MEDS: FREE WATER TUBE SCH ×3 (06:42→22:00)
[2017-06-14] MEDS: CHLORHEXIDINE 0.12% (ORAL KIT) 15 ML CUP MT SCH ×2 (08:00→20:00)
[2017-06-14 08:07] LABS: BANDS 6 % (0-6); LYMPHOCYTES 7 % (9-44); METAMYELOCYTES 1 % (0-1); MONOCYTES 4 % (0-8); POLYS (SEG NEUTROPHILS) 81 % (16-70)
[2017-06-14] MEDS: PANTOPRAZOLE SODIUM 40 MG VIAL IV PUSH SCH ×2 (08:35→20:23)
[2017-06-14] MEDS: DOCUSATE SODIUM 50 MG/SENNA 8.6 MG TAB PO SCH ×2 (08:35→20:23)
[2017-06-14] MEDS ORDERED: PHARMACY ORDERED LAB ONE ×2 (08:45→16:45)
[2017-06-14] MEDS: SODIUM CHLORIDE 0.9% FLUSH 10 ML FLUSH IV FLUSH SCH ×2 (09:00→20:24)
[2017-06-14] MEDS: ARTIFICIAL TEARS OPTH SOLN 15 ML BTL EACH EYE SCH ×3 (09:00→17:50)
--- NOTE | 2017-06-14 09:23 | HHI.NSPN ---
History Chief Complaint: Seizures Interval History 06/09/17: Pt sedated. When sedation held pt reported gets agitated. Pupils 3mm bilaterally reactive bilaterally. Pts at bedside [place] She states he has always been healthy other than seasonal depression more in the winter. She denies any history of cancers or seizures. She states he has a history of trauma and was here about a year ago. 06/10/17: Pt sedated. When sedation held pt was agitated moving all 4 extremities, pt re-sedated. Not following commands. Intubated. 06/12/17: Pt underwent a right temporal chandu hole with brain mass biopsy. Pt is sedated and intubated. He reportedly gets agitated when sedation weaned so he is being weaned slowly. 06/13/17: Pt sedated on Fentanyl, Diprivan, and Versed drips but weaning doses. He is intubated. Attempts to open eyes. When sedation held by RN reportedly followed commands. 06/14/17: Pt was extubated yesterday but required reintubation. He is currently sedated on Diprivan and Fentanyl drips. He opens eyes slightly to voice with sedation and follows commands. System Review Comments Not able to obtain given clinical condition. Exam Results Vital Signs Date Time Temp Pulse Resp B/P (MAP) Pulse Ox O2 Delivery O2 Flow Rate FiO2 06/14/17 07:55 93 60 06/14/17 06:00 79 06/14/17 04:00 99.9 17 118/72 (87) 06/13/17 19:00 Mechanical Ventilator 06/13/17 11:45 15 Intake and Output 06/14/17 06/14/17 06/15/17 08:00 16:00 00:00 Intake Total 800 ml Output Total 2225 ml Balance -1425 ml Physical Examination General: Pt sedated and intubated with stable vitals. Eyes: Pupils equal and reactive. Sclera anicteric. Resp: Intubated. CTA bilaterally. Heart: NSR no murmurs Abd: Soft positive bs Skin: No cyanosis or erythema. Incision is clean and dry with sumit in place. Muscle: Pt is agitated when sedation held and reportedly moving all 4 extremities and following commands when sedation held. Neuro: Pt opens eyes slightly to voice. Pupils 3mm bilaterally reactive bilaterally. follows some commands with sedation. When sedation held by RN pt reportedly agitated but follows. Lab, Micro, Other Results Last Impressions Chest X-Ray 06/14/17 0600 Signed Impressions: Service Date/Time: Wednesday, June 14, 2017 04:46 - CONCLUSION: Left greater than right parenchymal consolidation without significant change. Cruz To MD Abdomen X-Ray 06/13/17 0000 Signed Impressions: Service Date/Time: Tuesday, June 13, 2017 15:52 - CONCLUSION: NG tube in the stomach Cruz Buck MD Head CT 06/12/17 0600 Signed Impressions: Service Date/Time: May 04:27 - CONCLUSION: 1. New 1 cm area of high density hemorrhage in right temporal lobe at site of biopsy. 2. Patchy hypodensity and edema remain in the right temporal lobe. Rolo Ward MD Chest CT 06/10/17 0000 Signed Impressions: Service Date/Time: Saturday, June 10, 2017 04:45 - CONCLUSION: 1. The previously noted right adrenal mass has decreased in size and is nonspecific. 2. Small pleural effusions with mild consolidation in the left lower lobe. 3. No parenchymal mass or adenopathy. Rolo Ward MD Abdomen/Pelvis CT 06/10/17 0000 Signed Impressions: Service Date/Time: Saturday, June 10, 2017 04:45 - CONCLUSION: 1. No evidence of primary tumor. 2. The previous noted right adrenal mass has decreased in size but is nonspecific 3. Small pleural effusions are again noted with mild consolidation in the left lower lobe.. Rolo Ward MD Neck CTA 06/08/17 1027 Signed Impressions: Service Date/Time: Thursday, June 08, 2017 10:43 - CONCLUSION: Normal carotid CTA. Tani Polo MD Head CTA 06/08/17 1027 Signed Impressions: Service Date/Time: Thursday, June 08, 2017 10:43 - CONCLUSION: 1. No evidence of vessel truncation. In particular, the right middle cerebral artery and MCA branches demonstrate flow. 2. 1.5 cm right temporal tip mass or hemorrhage with surrounding edema. Tani Polo MD Brain MRI 06/08/17 0000 Signed Impressions: Service Date/Time: Thursday, June 08, 2017 11:20 - CONCLUSION: Abnormal exam demonstrating four ring-enhancing lesions, all located in the right temporal lobe. There is edema in the right temporal lobe and evidence of midline shift towards the left. No evidence of hemorrhage. Differential considerations include metastatic lesions and septic abscesses. Tani Polo MD Laboratory Tests Test 06/13/17 11:46 06/13/17 12:58 06/13/17 16:50 06/14/17 05:25 Blood Gas Puncture Site ART LINE ART LINE LT RADIAL Blood Gas Patient Temperature 98.6 98.6 98.6 Blood Gas HCO3 26 mmol/L 25 mmol/L 25 mmol/L Blood Gas Base Excess 2.6 mmol/L 1.6 mmol/L 1.2 mmol/L Blood Gas Oxygen Saturation 83 % 92 % 95 % Arterial Blood pH 7.46 7.47 7.41 Arterial Blood Partial Pressure CO2 37 mmHg 35 mmHg 41 mmHg Arterial Blood Partial Pressure O2 46 mmHg 64 mmHg 81 mmHg Arterial Blood Oxygen Content 14.3 Vol % 16.1 Vol % 20.5 Vol % Arterial Blood Carboxyhemoglobin 1.3 % 1.2 % 1.0 % Arterial Blood Methemoglobin 0.8 % 0.9 % 0.9 % Blood Gas Hemoglobin 12.3 G/DL 12.5 G/DL 15.4 G/DL Oxygen Delivery Device MASK BIPAP VENTILATOR Blood Gas Liter Flow 8 L/M Blood Gas Ventilator Setting IPAP12/EPAP7 Blood Gas Inspired Oxygen 70 % 90 % White Blood Count 13.6 TH/MM3 Red Blood Count 3.85 MIL/MM3 Hemoglobin 11.9 GM/DL Hematocrit 33.5 % Mean Corpuscular Volume 87.0 FL Mean Corpuscular Hemoglobin 30.9 PG Mean Corpuscular Hemoglobin Concent 35.5 % Red Cell Distribution Width 12.1 % Platelet Count 206 TH/MM3 Mean Platelet Volume 7.2 FL Neutrophils (%) (Auto) 85.4 % Lymphocytes (%) (Auto) 6.9 % Monocytes (%) (Auto) 5.6 % Eosinophils (%) (Auto) 2.0 % Basophils (%) (Auto) 0.1 % Neutrophils # (Auto) 11.6 TH/MM3 Lymphocytes # (Auto) 0.9 TH/MM3 Monocytes # (Auto) 0.8 TH/MM3 Eosinophils # (Auto) 0.3 TH/MM3 Basophils # (Auto) 0.0 TH/MM3 CBC Comment AUTO DIFF Differential Total Cells Counted 100 Neutrophils % (Manual) 81 % Band Neutrophils % 6 % Lymphocytes % 7 % Monocytes % 4 % Eosinophils % 1 % Neutrophils # (Manual) 12.0 TH/MM3 Metamyelocytes 1 % Differential Comment FINAL DIFF MANUAL Platelet Estimate NORMAL Platelet Morphology Comment NORMAL Red Cell Morphology Comment NORMAL Blood Urea Nitrogen 14 MG/DL Creatinine 0.52 MG/DL Random Glucose 92 MG/DL Total Protein 6.3 GM/DL Albumin 2.1 GM/DL Calcium Level 8.3 MG/DL Phosphorus Level 2.2 MG/DL Magnesium Level 1.9 MG/DL Alkaline Phosphatase 74 U/L Aspartate Amino Transf (AST/SGOT) 16 U/L Alanine Aminotransferase (ALT/SGPT) 22 U/L Total Bilirubin 0.6 MG/DL Sodium Level 143 MEQ/L Potassium Level 3.4 MEQ/L Chloride Level 109 MEQ/L Carbon Dioxide Level 27.1 MEQ/L Anion Gap 7 MEQ/L Estimat Glomerular Filtration Rate 170 ML/MIN Test 06/14/17 05:52 Blood Gas Puncture Site LT BRACHIAL Blood Gas Patient Temperature 98.6 Blood Gas HCO3 26 mmol/L Blood Gas Base Excess 1.9 mmol/L Blood Gas Oxygen Saturation 92 % Arterial Blood pH 7.42 Arterial Blood Partial Pressure CO2 41 mmHg Arterial Blood Partial Pressure O2 66 mmHg Arterial Blood Oxygen Content 15.6 Vol % Arterial Blood Carboxyhemoglobin 1.2 % Arterial Blood Methemoglobin 0.9 % Blood Gas Hemoglobin 12.1 G/DL Oxygen Delivery Device VENTILATOR Blood Gas Ventilator Setting PRVC/AC Blood Gas Inspired Oxygen 60 % Medical Decision Making Impression and Plan A: 47 y/o M with 4 ring enhancing lesions right temporal lobe s/p right chandu hole and biopsy. Seizures. P: Continue with close neuro checks. Follow blood/wound cultures. Negative at 72hours. Continue with antiepileptic medications for seizures. Continue with Decadron for edema. Following pathology. Júnior Álvarez Jun 14, 2017 9:23 am
[2017-06-14] MEDS: LORazepam 2 MG/ML VIAL IV PUSH PRN ×5 (09:33→23:24)
[2017-06-14] MEDS: ACETAMINOPHEN 650 MG/20.3 ML UDC PO PRN (10:00)
[2017-06-14] MEDS: VANCOMYCIN INJ 1,750 MG in SODIUM CHLORID 0.9% 500 ML INJ 500 ML IV SCH ×2 (10:26→18:25)
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
[2017-06-14] MEDS: MULTIVITAMIN INJ 10 ML, THIAMINE INJ 100 MG, FOLIC ACID INJ 1 MG in SODIUM CHLORID 0.9%... IV SCH (14:22)
[2017-06-14 18:23] LABS: PHOSPHORUS 2.6 MG/DL (2.5-4.9)
[2017-06-14] MEDS: POTASSIUM CHLOR 20 MEQ PREMIX 100 ML IV PRN ×2 (18:53→22:49)
[2017-06-14] MEDS: OLANZapine 5 MG TAB PO SCH (20:23)
[2017-06-14] MEDS: ATORVASTATIN 10 MG TAB PO SCH (20:23)
[2017-06-15] VITALS (19 sets, daily range): BP systolic 93–141; BP diastolic 54–93; PULSE 76–128; RESP 19–26; TEMP 99.7–101.7; O2SAT 91–100
[2017-06-15] MEDS: CEFEPIME INJ 2,000 MG in SODIUM CHLORIDE 0.9% INJ 100 ML IV SCH (00:07)
[2017-06-15] MEDS: DEXMEDETOMIDINE INJ 1,000 MCG in SODIUM CHLOR 0.9% 250 ML INJ 240 ML IV PRN ×3 (00:30→19:30)
[2017-06-15] MEDS: VANCOMYCIN INJ 1,750 MG in SODIUM CHLORID 0.9% 500 ML INJ 500 ML IV SCH (00:57)
[2017-06-15] MEDS: fentaNYL DRIP 250 ML IV PRN ×3 (01:00→17:33)
[2017-06-15] MEDS: CHLORHEXIDINE GLUCONATE 2 % 1 PACK (2 CLOTHS) TOP SCH (01:13)
[2017-06-15] MEDS: PROPOFOL 1000 MG/100 ML INJ 100 ML IV PRN ×6 (02:07→22:53)
[2017-06-15] MEDS: LORazepam 2 MG/ML VIAL IV PUSH PRN ×5 (03:30→18:48)
[2017-06-15 05:08] LABS: HEMATOCRIT 37.3 % (39.0-51.0); HEMOGLOBIN 13.1 GM/DL (13.0-17.0); MEAN CELL VOLUME 87.6 FL (80.0-100.0); MEAN CORPUSCULAR HEMOGLOBIN 30.7 PG (27.0-34.0); MEAN CORPUSCULAR HGB CONC 35.1 % (32.0-36.0); MEAN PLATELET VOLUME 7.5 FL (7.0-11.0); PLATELET COUNT 211 TH/MM3 (150-450); RED BLOOD COUNT 4.26 MIL/MM3 (4.50-5.90); RED CELL DISTRIBUTION WIDTH 12.1 % (11.6-17.2); WHITE BLOOD COUNT 15.6 TH/MM3 (4.0-11.0)
[2017-06-15] MEDS: DEXAMETHASONE SOD PHOS 4 MG/ML VIAL IV PUSH SCH ×3 (05:21→23:01)
[2017-06-15] MEDS: FOSPHENYTOIN SODIUM 100 MG PE/2 ML VIAL IV SCH ×3 (05:21→23:01)
[2017-06-15] MEDS: FREE WATER TUBE SCH ×3 (05:21→22:00)
[2017-06-15 05:30] LABS: ALKALINE PHOSPHATASE 92 U/L (45-117); TOTAL BILIRUBIN ADULT 0.8 MG/DL (0.2-1.0); TOTAL PROTEIN 6.3 GM/DL (6.4-8.2)
[2017-06-15 05:36] LABS: ALBUMIN 1.9 GM/DL (3.4-5.0); ALT (GPT) 29 U/L (12-78); AST (GOT) 26 U/L (15-37); BICARBONATE 26.5 MEQ/L (21.0-32.0); BLOOD UREA NITROGEN 11 MG/DL (7-18); CALCIUM 8.2 MG/DL (8.5-10.1); CHLORIDE 106 MEQ/L (98-107); CREATININE 0.53 MG/DL (0.60-1.30); GLOMERULAR FILTRATION RATE 167 ML/MIN (>89); GLUCOSE,RANDOM 125 MG/DL (74-106); MAGNESIUM 1.9 MG/DL (1.5-2.5); PHOSPHORUS 2.2 MG/DL (2.5-4.9); SODIUM (NA) 140 MEQ/L (136-145)
--- NOTE | 2017-06-15 05:46 | RADRPT ---
EXAM DATE/TIME: 06/15/2017 04:45 [place] COMPARISON: CHEST SINGLE AP, June 14, 2017, 4:46. INDICATIONS : Infiltrate. MEDICAL HISTORY : None. SURGICAL HISTORY : None. ENCOUNTER: Subsequent ACUITY: 1 week PAIN SCORE: Non-responsive. LOCATION: Bilateral chest FINDINGS: Left greater right basilar consolidation again seen without significant change. No large effusion dem onstrated. No pneumothorax. Heart size stable, clinical normal. Endotracheal tube tip is approximately 4.5 cm above the earl. N asogastric tube courses into the stomach. CONCLUSION: No significant change left greater than right airspace opacities. Cruz To MD on June 15, 2017 at 5:45 Board Certified Radiologist. This report was verified electronically.
[2017-06-15] MEDS: INSULIN NovoLIN REGULAR SUPPLEMENTAL SCALE SQ SCH ×2 (05:53→11:55)
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
[2017-06-15] MEDS ORDERED: FUROSEMIDE 20 MG/2 ML VIAL IV PUSH ONE (08:15)
[2017-06-15] MEDS: ARTIFICIAL TEARS OPTH SOLN 15 ML BTL EACH EYE SCH ×3 (09:00→17:21)
[2017-06-15] MEDS: DOCUSATE SODIUM 50 MG/SENNA 8.6 MG TAB PO SCH ×2 (09:09→19:50)
[2017-06-15] MEDS: PANTOPRAZOLE SODIUM 40 MG VIAL IV PUSH SCH ×2 (09:16→19:50)
[2017-06-15] MEDS: ceFAZolin 2 GM PREMIX 50 ML IV SCH ×2 (09:16→17:21)
[2017-06-15] MEDS: SODIUM CHLORIDE 0.9% FLUSH 10 ML FLUSH IV FLUSH SCH ×2 (09:17→19:49)
[2017-06-15] MEDS: CHLORHEXIDINE 0.12% (ORAL KIT) 15 ML CUP MT SCH ×2 (09:24→19:49)
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
--- NOTE | 2017-06-15 14:09 | RADRPT ---
EXAM DATE/TIME: 06/15/2017 13:59 [facility] COMPARISON: CHEST SINGLE AP, June 15, 2017, 4:45. INDICATIONS : Respiratory disease MEDICAL HISTORY : None. SURGICAL HISTORY : None. ENCOUNTER: Subsequent ACUITY: 1 week PAIN SCORE: Non-responsive. LOCATION: chest FINDINGS: The endotracheal tube and NG tube remain in place. There continue to be scattered bilateral pulmonary infiltrates, left greater than right. Infiltrates are stable compared to the prior study. There is n o pneumothorax. No significant pleural effusions. The heart size is stable. CONCLUSION: Stable bilateral pulmonary infiltrates. No significant changes. Kamron Howell MD on June 15, 2017 at 14:06 Board Certified Radiologist. This report was verified electronically.
[2017-06-15] MEDS: MULTIVITAMIN INJ 10 ML, THIAMINE INJ 100 MG, FOLIC ACID INJ 1 MG in SODIUM CHLORID 0.9%... IV SCH (15:23)
--- NOTE | 2017-06-15 16:10 | RADRPT ---
EXAM DATE/TIME: 06/15/2017 15:25 [facility] COMPARISON: No previous studies available for comparison. INDICATIONS : Bilateral leg swelling. MEDICAL HISTORY : Seizures. Alcohol use. Substance use. SURGICAL HISTORY : None. ENCOUNTER: Initial ACUITY: 1 day PAIN SCORE: 0/10 LOCATION: Bilateral legs. TECHNIQUE: Venous ultrasound of the left and right leg was performed from the inguinal ligament to the proximal calf. Real-time, color Doppler and spectral tracing, compression and augmentation techniques were us ed. FINDINGS: RIGHT LEG: There is normal compressibility of the deep venous system from the inguinal region to the proximal ca lf. No echogenic clot is seen in the lumen of the common femoral, femoral, popliteal, and posterior tibial veins. There is a normal response of the venous system to proximal and distal augmentation an d respiration. LEFT LEG: There is normal compressibility of the deep venous system from the inguinal region to the proximal ca lf. No echogenic clot is seen in the lumen of the common femoral, femoral, popliteal, and posterior tibial veins. There is a normal response of the venous system to proximal and distal augmentation an d respiration. CONCLUSION: Normal examination. Tony Blood MD on June 15, 2017 at 16:08 Board Certified Radiologist. This report was verified electronically.
[2017-06-15] MEDS ORDERED: PHARMACY ORDERED LAB ONE (16:45)
[2017-06-15] MEDS: OLANZapine 5 MG TAB PO SCH (19:50)
[2017-06-15] MEDS: ATORVASTATIN 10 MG TAB PO SCH (19:50)
[2017-06-16] VITALS (19 sets, daily range): BP systolic 108–152; BP diastolic 60–91; PULSE 69–100; RESP 20–28; TEMP 99.3–101.5; O2SAT 91–100
[2017-06-16] MEDS: ceFAZolin 2 GM PREMIX 50 ML IV SCH ×3 (00:38→16:10)
[2017-06-16] MEDS: DEXMEDETOMIDINE INJ 1,000 MCG in SODIUM CHLOR 0.9% 250 ML INJ 240 ML IV PRN ×2 (01:45→11:36)
[2017-06-16] MEDS: PROPOFOL 1000 MG/100 ML INJ 100 ML IV PRN ×6 (02:00→21:58)
[2017-06-16] MEDS: fentaNYL DRIP 250 ML IV PRN ×3 (03:00→21:58)
[2017-06-16] MEDS: LORazepam 2 MG/ML VIAL IV PUSH PRN ×3 (03:20→20:39)
[2017-06-16] MEDS: CHLORHEXIDINE GLUCONATE 2 % 1 PACK (2 CLOTHS) TOP SCH (04:00)
[2017-06-16] MEDS: FOSPHENYTOIN SODIUM 100 MG PE/2 ML VIAL IV SCH ×3 (05:28→22:47)
[2017-06-16] MEDS: DEXAMETHASONE SOD PHOS 4 MG/ML VIAL IV PUSH SCH ×3 (05:28→20:44)
[2017-06-16] MEDS: LACTULOSE SYRUP 20 GM/30 ML CUP PO PRN ×2 (05:28→08:25)
[2017-06-16] MEDS: FREE WATER TUBE SCH ×3 (05:28→22:00)
--- NOTE | 2017-06-16 05:54 | RADRPT ---
EXAM DATE/TIME: 06/16/2017 05:03 [facility] COMPARISON: CHEST SINGLE AP, June 15, 2017, 13:59. INDICATIONS : Short of breath. MEDICAL HISTORY : None. SURGICAL HISTORY : None. ENCOUNTER: Subsequent ACUITY: 1 week PAIN SCORE: 0/10 LOCATION: Bilateral chest FINDINGS: Stable ETT and NGT coursing beyond the GE junction. Persistent bilateral lower lobe airspace consolid ation. Cardiomediastinal contours are within normal limits. Remainder of the exam is unchanged. CONCLUSION: 1. Stable ETT and NGT. 2. Stable bilateral lower lobe airspace consolidation. Derrick Lopez MD on June 16, 2017 at 5:53 Board Certified Radiologist. This report was verified electronically.
[2017-06-16 06:07] LABS: HEMATOCRIT 36.1 % (39.0-51.0); HEMOGLOBIN 12.8 GM/DL (13.0-17.0); MEAN CELL VOLUME 86.4 FL (80.0-100.0); MEAN CORPUSCULAR HEMOGLOBIN 30.6 PG (27.0-34.0); MEAN CORPUSCULAR HGB CONC 35.4 % (32.0-36.0); MEAN PLATELET VOLUME 7.7 FL (7.0-11.0); PLATELET COUNT 233 TH/MM3 (150-450); RED BLOOD COUNT 4.18 MIL/MM3 (4.50-5.90); RED CELL DISTRIBUTION WIDTH 12.4 % (11.6-17.2); WHITE BLOOD COUNT 13.8 TH/MM3 (4.0-11.0)
[2017-06-16 06:45] LABS: ALBUMIN 1.9 GM/DL (3.4-5.0); AST (GOT) 25 U/L (15-37); BICARBONATE 29.9 MEQ/L (21.0-32.0); BLOOD UREA NITROGEN 10 MG/DL (7-18); CALCIUM 8.3 MG/DL (8.5-10.1); CHLORIDE 108 MEQ/L (98-107); CREATININE 0.47 MG/DL (0.60-1.30); GLOMERULAR FILTRATION RATE 191 ML/MIN (>89); GLUCOSE,RANDOM 109 MG/DL (74-106); MAGNESIUM 1.8 MG/DL (1.5-2.5); SODIUM (NA) 143 MEQ/L (136-145)
[2017-06-16 06:46] LABS: ALT (GPT) 38 U/L (12-78); PHOSPHORUS 2.8 MG/DL (2.5-4.9)
[2017-06-16 06:48] LABS: ALKALINE PHOSPHATASE 107 U/L (45-117); TOTAL BILIRUBIN ADULT 0.4 MG/DL (0.2-1.0); TOTAL PROTEIN 6.1 GM/DL (6.4-8.2)
[2017-06-16] MEDS: CHLORHEXIDINE 0.12% (ORAL KIT) 15 ML CUP MT SCH ×2 (08:00→20:00)
[2017-06-16] MEDS: SODIUM CHLORIDE 0.9% FLUSH 10 ML FLUSH IV FLUSH SCH ×2 (08:03→21:00)
[2017-06-16] MEDS: ARTIFICIAL TEARS OPTH SOLN 15 ML BTL EACH EYE SCH ×3 (08:03→16:10)
[2017-06-16] MEDS: MAGNESIUM HYDROXIDE SUSP 30 ML CUP PO PRN (08:25)
[2017-06-16] MEDS: DOCUSATE SODIUM 50 MG/SENNA 8.6 MG TAB PO SCH ×2 (08:25→21:00)
[2017-06-16] MEDS: ACETAMINOPHEN 650 MG/20.3 ML UDC PO PRN ×2 (08:25→17:52)
[2017-06-16] MEDS: BISACODYL 10 MG SUPP RECTAL PRN (08:26)
[2017-06-16] MEDS: SENNOSIDES 8.6 MG TAB PO PRN (08:26)
[2017-06-16] MEDS: PANTOPRAZOLE SODIUM 40 MG VIAL IV PUSH SCH ×2 (08:52→20:42)
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
[2017-06-16] MEDS ORDERED: MAGNESIUM CITRATE SOLN 300 ML BTL PO ONE (13:00)
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
[2017-06-16] MEDS: FUROSEMIDE 40 MG/4 ML VIAL IV PUSH SCH ×2 (13:24→17:47)
[2017-06-16] MEDS: MULTIVITAMIN INJ 10 ML, THIAMINE INJ 100 MG, FOLIC ACID INJ 1 MG in SODIUM CHLORID 0.9%... IV SCH (15:00)
[2017-06-16] MEDS: MORPHINE SULFATE 2 MG/ML INJ IV PUSH PRN (20:40)
[2017-06-16] MEDS: ATORVASTATIN 10 MG TAB PO SCH (20:42)
[2017-06-16] MEDS: OLANZapine 5 MG TAB PO SCH (20:44)
[2017-06-17] VITALS (18 sets, daily range): BP systolic 100–135; BP diastolic 55–74; PULSE 67–120; RESP 20–24; TEMP 99.7–100.9; O2SAT 91–100
[2017-06-17] MEDS: ceFAZolin 2 GM PREMIX 50 ML IV SCH ×3 (00:07→17:04)
[2017-06-17] MEDS: CHLORHEXIDINE GLUCONATE 2 % 1 PACK (2 CLOTHS) TOP SCH ×2 (04:00→19:43)
[2017-06-17 04:24] LABS: HEMATOCRIT 35.9 % (39.0-51.0); HEMOGLOBIN 12.9 GM/DL (13.0-17.0); MEAN CELL VOLUME 86.5 FL (80.0-100.0); MEAN CORPUSCULAR HGB CONC 35.8 % (32.0-36.0); MEAN PLATELET VOLUME 7.7 FL (7.0-11.0); PLATELET COUNT 270 TH/MM3 (150-450); RED BLOOD COUNT 4.15 MIL/MM3 (4.50-5.90); RED CELL DISTRIBUTION WIDTH 12.2 % (11.6-17.2); WHITE BLOOD COUNT 14.8 TH/MM3 (4.0-11.0)
[2017-06-17] MEDS: PROPOFOL 1000 MG/100 ML INJ 100 ML IV PRN ×5 (04:52→23:10)
[2017-06-17 05:02] LABS: ALBUMIN 2.1 GM/DL (3.4-5.0); ALKALINE PHOSPHATASE 135 U/L (45-117); ALT (GPT) 77 U/L (12-78); AST (GOT) 53 U/L (15-37); BICARBONATE 25.6 MEQ/L (21.0-32.0); BLOOD UREA NITROGEN 13 MG/DL (7-18); CALCIUM 8.2 MG/DL (8.5-10.1); CHLORIDE 109 MEQ/L (98-107); CREATININE 0.58 MG/DL (0.60-1.30); GLOMERULAR FILTRATION RATE 150 ML/MIN (>89); GLUCOSE,RANDOM 116 MG/DL (74-106); MAGNESIUM 2.2 MG/DL (1.5-2.5); PHOSPHORUS 3.6 MG/DL (2.5-4.9); SODIUM (NA) 142 MEQ/L (136-145); TOTAL BILIRUBIN ADULT 0.5 MG/DL (0.2-1.0); TOTAL PROTEIN 6.5 GM/DL (6.4-8.2)
[2017-06-17] MEDS: FOSPHENYTOIN SODIUM 100 MG PE/2 ML VIAL IV SCH ×3 (05:56→21:29)
[2017-06-17] MEDS: FREE WATER TUBE SCH ×3 (05:59→21:29)
[2017-06-17] MEDS: RESP: ALBUTEROL 2.5 MG/3 ML NEB (PRN) INH (07:58)
[2017-06-17] MEDS: CHLORHEXIDINE 0.12% (ORAL KIT) 15 ML CUP MT SCH ×2 (08:06→20:00)
[2017-06-17] MEDS: fentaNYL DRIP 250 ML IV PRN ×2 (08:09→17:05)
[2017-06-17] MEDS: LORazepam 2 MG/ML VIAL IV PUSH PRN ×5 (08:09→20:27)
[2017-06-17] MEDS: PANTOPRAZOLE SODIUM 40 MG VIAL IV PUSH SCH ×2 (08:13→20:26)
[2017-06-17] MEDS: DEXAMETHASONE SOD PHOS 4 MG/ML VIAL IV PUSH SCH ×2 (08:16→20:27)
[2017-06-17] MEDS: FUROSEMIDE 40 MG/4 ML VIAL IV PUSH SCH ×2 (08:16→17:04)
[2017-06-17] MEDS: SODIUM CHLORIDE 0.9% FLUSH 10 ML FLUSH IV FLUSH SCH ×2 (08:16→20:27)
[2017-06-17] MEDS: ARTIFICIAL TEARS OPTH SOLN 15 ML BTL EACH EYE SCH ×3 (08:18→17:04)
[2017-06-17] MEDS: DOCUSATE SODIUM 50 MG/SENNA 8.6 MG TAB PO SCH ×2 (08:18→19:42)
[2017-06-17] MEDS: DEXMEDETOMIDINE INJ 1,000 MCG in SODIUM CHLOR 0.9% 250 ML INJ 240 ML IV PRN ×2 (08:47→17:05)
[2017-06-17] MEDS: POTASSIUM CHLOR 20 MEQ PREMIX 100 ML IV PRN ×2 (08:48→12:10)
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
[2017-06-17] MEDS: MULTIVITAMIN INJ 10 ML, THIAMINE INJ 100 MG, FOLIC ACID INJ 1 MG in SODIUM CHLORID 0.9%... IV SCH (15:31)
[2017-06-17] MEDS: ACETAMINOPHEN 650 MG/20.3 ML UDC PO PRN (20:26)
[2017-06-17] MEDS: OLANZapine 5 MG TAB PO SCH (20:26)
[2017-06-17] MEDS: ATORVASTATIN 10 MG TAB PO SCH (20:26)
[2017-06-18] VITALS (17 sets, daily range): BP systolic 94–122; BP diastolic 54–73; PULSE 76–110; RESP 22–27; TEMP 99.7–102.6; O2SAT 94–98
[2017-06-18] MEDS: ceFAZolin 2 GM PREMIX 50 ML IV SCH ×2 (00:51→07:32)
[2017-06-18] MEDS: fentaNYL DRIP 250 ML IV PRN ×3 (02:52→20:49)
[2017-06-18] MEDS: PROPOFOL 1000 MG/100 ML INJ 100 ML IV PRN ×4 (02:52→20:49)
[2017-06-18] MEDS: LORazepam 2 MG/ML VIAL IV PUSH PRN ×5 (03:36→22:04)
[2017-06-18 05:04] LABS: HEMATOCRIT 33.9 % (39.0-51.0); HEMOGLOBIN 11.9 GM/DL (13.0-17.0); MEAN CELL VOLUME 87.3 FL (80.0-100.0); MEAN CORPUSCULAR HEMOGLOBIN 30.6 PG (27.0-34.0); MEAN CORPUSCULAR HGB CONC 35.1 % (32.0-36.0); PLATELET COUNT 271 TH/MM3 (150-450); RED BLOOD COUNT 3.88 MIL/MM3 (4.50-5.90); RED CELL DISTRIBUTION WIDTH 11.9 % (11.6-17.2); WHITE BLOOD COUNT 18.2 TH/MM3 (4.0-11.0)
[2017-06-18 05:17] LABS: ALBUMIN 1.9 GM/DL (3.4-5.0); ALKALINE PHOSPHATASE 186 U/L (45-117); ALT (GPT) 130 U/L (12-78); AST (GOT) 112 U/L (15-37); BICARBONATE 26.2 MEQ/L (21.0-32.0); BLOOD UREA NITROGEN 15 MG/DL (7-18); CALCIUM 8.2 MG/DL (8.5-10.1); CHLORIDE 105 MEQ/L (98-107); CREATININE 0.73 MG/DL (0.60-1.30); GLOMERULAR FILTRATION RATE 115 ML/MIN (>89); GLUCOSE,RANDOM 116 MG/DL (74-106); MAGNESIUM 1.9 MG/DL (1.5-2.5); PHOSPHORUS 3.1 MG/DL (2.5-4.9); SODIUM (NA) 139 MEQ/L (136-145); TOTAL BILIRUBIN ADULT 0.9 MG/DL (0.2-1.0); TOTAL PROTEIN 6.2 GM/DL (6.4-8.2)
[2017-06-18] MEDS: FREE WATER TUBE SCH (05:20)
[2017-06-18] MEDS: FOSPHENYTOIN SODIUM 100 MG PE/2 ML VIAL IV SCH ×3 (05:20→20:26)
[2017-06-18] MEDS: ACETAMINOPHEN 650 MG/20.3 ML UDC PO PRN ×2 (06:32→20:29)
[2017-06-18] MEDS: DEXMEDETOMIDINE INJ 1,000 MCG in SODIUM CHLOR 0.9% 250 ML INJ 240 ML IV PRN ×3 (07:00→20:49)
[2017-06-18] MEDS: DEXAMETHASONE SOD PHOS 4 MG/ML VIAL IV PUSH SCH ×2 (07:31→20:27)
[2017-06-18] MEDS: PANTOPRAZOLE SODIUM 40 MG VIAL IV PUSH SCH ×2 (07:31→20:26)
[2017-06-18] MEDS: FUROSEMIDE 40 MG/4 ML VIAL IV PUSH SCH ×2 (07:32→17:57)
[2017-06-18] MEDS: SODIUM CHLORIDE 0.9% FLUSH 10 ML FLUSH IV FLUSH SCH ×2 (07:35→20:28)
[2017-06-18] MEDS: CHLORHEXIDINE 0.12% (ORAL KIT) 15 ML CUP MT SCH ×2 (07:35→20:15)
[2017-06-18] MEDS: ARTIFICIAL TEARS OPTH SOLN 15 ML BTL EACH EYE SCH ×3 (07:35→16:16)
[2017-06-18] MEDS: DOCUSATE SODIUM 50 MG/SENNA 8.6 MG TAB PO SCH ×2 (07:36→20:27)
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
[2017-06-18] MEDS: OXACILLIN INJ 2 GM in SODIUM CHLORIDE 0.9% INJ 100 ML IV SCH ×2 (14:11→20:28)
[2017-06-18] MEDS: MORPHINE SULFATE 2 MG/ML INJ IV PUSH PRN ×2 (16:32→20:33)
[2017-06-18] MEDS: MULTIVITAMIN INJ 10 ML, THIAMINE INJ 100 MG, FOLIC ACID INJ 1 MG in SODIUM CHLORID 0.9%... IV SCH (16:35)
[2017-06-18] MEDS: ATORVASTATIN 10 MG TAB PO SCH (20:27)
[2017-06-18] MEDS: OLANZapine 5 MG TAB PO SCH (20:27)
[2017-06-19] VITALS (18 sets, daily range): BP systolic 88–103; BP diastolic 50–65; PULSE 63–121; RESP 22–27; TEMP 97.1–101.3; O2SAT 94–100
[2017-06-19] MEDS: PROPOFOL 1000 MG/100 ML INJ 100 ML IV PRN ×6 (00:43→20:15)
[2017-06-19] MEDS: OXACILLIN INJ 2 GM in SODIUM CHLORIDE 0.9% INJ 100 ML IV SCH ×4 (02:07→20:18)
[2017-06-19] MEDS: CHLORHEXIDINE GLUCONATE 2 % 1 PACK (2 CLOTHS) TOP SCH (03:55)
[2017-06-19 05:05] LABS: BASOPHIL # 0.1 TH/MM3 (0-0.2); BASOPHIL % 0.4 % (0.0-2.0); EOSINOPHIL # 0.1 TH/MM3 (0-0.4); EOSINOPHIL % 0.6 % (0.0-4.0); HEMATOCRIT 34.6 % (39.0-51.0); HEMOGLOBIN 12.3 GM/DL (13.0-17.0); LYMPH % 5.5 % (9.0-44.0); LYMPHOCYTE # 1.1 TH/MM3 (1.0-4.8); MEAN CELL VOLUME 86.2 FL (80.0-100.0); MEAN CORPUSCULAR HEMOGLOBIN 30.6 PG (27.0-34.0); MEAN CORPUSCULAR HGB CONC 35.5 % (32.0-36.0); MONOCYTE # 1.2 TH/MM3 (0-0.9); NEUT % 87.5 % (16.0-70.0); PLATELET COUNT 304 TH/MM3 (150-450); RED BLOOD COUNT 4.02 MIL/MM3 (4.50-5.90); RED CELL DISTRIBUTION WIDTH 12.5 % (11.6-17.2); WHITE BLOOD COUNT 19.4 TH/MM3 (4.0-11.0)
[2017-06-19 05:20] LABS: ALT (GPT) 96 U/L (12-78); AST (GOT) 65 U/L (15-37); BICARBONATE 25.1 MEQ/L (21.0-32.0); BLOOD UREA NITROGEN 17 MG/DL (7-18); CALCIUM 8.4 MG/DL (8.5-10.1); CHLORIDE 107 MEQ/L (98-107); GLOMERULAR FILTRATION RATE 178 ML/MIN (>89); GLUCOSE,RANDOM 133 MG/DL (74-106); SODIUM (NA) 140 MEQ/L (136-145)
[2017-06-19 05:21] LABS: ALKALINE PHOSPHATASE 197 U/L (45-117); TOTAL BILIRUBIN ADULT 0.9 MG/DL (0.2-1.0); TOTAL PROTEIN 6.7 GM/DL (6.4-8.2)
[2017-06-19] MEDS: FOSPHENYTOIN SODIUM 100 MG PE/2 ML VIAL IV SCH ×3 (05:29→22:13)
[2017-06-19] MEDS: MORPHINE SULFATE 2 MG/ML INJ IV PUSH PRN ×3 (05:52→20:57)
--- NOTE | 2017-06-19 06:36 | RADRPT ---
EXAM DATE/TIME: 06/19/2017 05:41 [facility] COMPARISON: CHEST SINGLE AP, June 16, 2017, 5:03. INDICATIONS : Short of breath. MEDICAL HISTORY : None. SURGICAL HISTORY : None. ENCOUNTER: Subsequent ACUITY: 1 week PAIN SCORE: Non-responsive. LOCATION: Bilateral chest FINDINGS: Stable ETT and NGT with proximal sidehole in the distal esophagus. Improved bilateral lower lobe airs pace consolidation. Cardiomediastinal contours are within normal limits. Remainder of exam is unchang ed. CONCLUSION: 1. ETT and NGT, as above. 2. Improved bilateral lower lobe airspace consolidation. Derrick Lopez MD on June 19, 2017 at 6:34 Board Certified Radiologist. This report was verified electronically.
[2017-06-19] MEDS: fentaNYL DRIP 250 ML IV PRN ×2 (06:48→17:37)
[2017-06-19 08:07] LABS: BANDS 8 % (0-6); BASOPHILS 3 % (0-2); LYMPHOCYTES 3 % (9-44); POLYS (SEG NEUTROPHILS) 85 % (16-70)
[2017-06-19 08:08] LABS: TOXIC GRANULATION 2+ (NORMAL)
[2017-06-19] MEDS: PANTOPRAZOLE SODIUM 40 MG VIAL IV PUSH SCH ×2 (08:15→20:18)
[2017-06-19] MEDS: DEXAMETHASONE SOD PHOS 4 MG/ML VIAL IV PUSH SCH ×2 (08:16→20:18)
[2017-06-19] MEDS: FUROSEMIDE 40 MG/4 ML VIAL IV PUSH SCH ×2 (08:16→17:26)
[2017-06-19] MEDS: ARTIFICIAL TEARS OPTH SOLN 15 ML BTL EACH EYE SCH ×3 (08:17→17:27)
[2017-06-19] MEDS: DOCUSATE SODIUM 50 MG/SENNA 8.6 MG TAB PO SCH ×2 (08:18→20:19)
[2017-06-19] MEDS: SODIUM CHLORIDE 0.9% FLUSH 10 ML FLUSH IV FLUSH SCH ×2 (08:18→20:18)
[2017-06-19] MEDS: CHLORHEXIDINE 0.12% (ORAL KIT) 15 ML CUP MT SCH ×2 (08:18→20:18)
[2017-06-19] MEDS: LORazepam 2 MG/ML VIAL IV PUSH PRN ×2 (09:33→20:15)
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
--- NOTE | 2017-06-19 11:02 | RC ---
cc: Augusto Borrero MD,Cordelia Pham,Lonnie Kramer DATE OF SERVICE: 06/18/2017 DIAGNOSIS: Possible high-grade astrocytoma versus glioblastoma multiforme. STAGE: Not applicable. CHIEF COMPLAINT: Seizure. REASON FOR VISIT: The patient being evaluated for possible radiotherapeutic treatment options. HISTORY OF PRESENT ILLNESS: This is a 47-year-old white male, which I saw today. He is intubated and not able to respond. Most of the information is obtained per my discussion with Dr. Yanes, as well as reading the records, but it appears that the patient presented to the hospital for evaluation following a seizure. Upon evaluation, the patient was noted to have several brain lesions and underwent an MRI, which had detected 4 brain lesions on the right. He underwent a biopsy, which was positive for high grade cytoma versus possible GBM. 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 Per reading the records, it appears that the patient is being kept on intubation due to agitation and will be taken to surgery on Friday. A consultation has been requested for adjuvant radiotherapeutic treatment options following surgical resection. PAST MEDICAL HISTORY: As above, also history of closed head injury, seizure, ETOH dependence, acute respiratory failure. MEDICATIONS: Acetaminophen, Albuterol, sulfate, Artificial Tears, atorvastatin, Dulcolax, Celebrex, Lasix, lactulose, Ativan, morphine, Zyprexa, Zofran, Protonix, propofol. ALLERGIES: NO KNOWN DRUG ALLERGIES. FAMILY HISTORY: No apparent history of carcinoma in the family. SOCIAL HISTORY: The patient appears to have alcohol dependence according to the records. No tobacco use. No illegal drug use. REVIEW OF SYSTEMS: The review of systems was obtained from the records as the patient is not able to answer questions at the time of evaluation. This is thought previous to admission. CONSTITUTIONAL: It appears that the patient had not loss of any weight previous to admission. EYES: Unremarkable. ENT: Unremarkable. NECK: Unremarkable. INTEGUMENTARY: Unremarkable. CARDIOVASCULAR: Unremarkable, with no clinical signs of [place]. RESPIRATORY: Unremarkable. GASTROINTESTINAL: Unremarkable. GENITOURINARY: Unremarkable. MUSCULOSKELETAL: Unremarkable. NEUROLOGIC: Seizure with left gaze. PSYCHIATRIC: No depression or suicidal thoughts. ENDOCRINE: Unremarkable. HEMATOLOGIC: Unremarkable. DERMATOLOGICAL: Unremarkable. PHYSICAL EXAMINATION: GENERAL: The patient intubated and sedated, only responds to verbal commands, but does not follow commands. VITAL SIGNS: Pulse 82, temperature 101.3, respiratory rate 22, blood pressure 109/65, pulse oximetry 94% on oxygen. PULMONARY: Lungs clear to auscultation, with approprotiate ventilatory respiratory effort. CARDIOVASCULAR: Regular rate and rhythm, no murmurs. NECK: Palpation of the neck and bilateral supraclavicular areas are without lymph nodes. ABDOMEN: Palpation of the abdominal cavity reveals no hepatosplenomegaly, no periumbilical lymph nodes. NEUROLOGIC: Not able to be performed. The patient when awakened by verbal cue, moves around, but is unable to follow commands. SKIN: No rash. EXTREMITIES: No lower extremity edema detected. SURGICAL PATHOLOGY: 06/11/2017, IMPRESSION: Right bitemporal brain mass. Frozen section hypersellar gliosis versus glioma. Final diagnosis, right temporal mass biopsy, minute fragments of hypersellar or glio tissue with cytologic atypia. Brain, right temporal lobe advanced biopsy, high grade astrocytoma, at least anaplastic astrocytoma. RADIOLOGY: CT of the head 06/08/2017 reviewed. MRI of the brain 06/08/2017, IMPRESION:, abnormal exam, demonstrating four ring enhancing lesions, all appearing in the right temporal lobe. There is edema in the right temporal lobe and evidence of midline shift towards the left. No evidence of hemorrhagic area. This MRI has been independently reviewed by me. Abdomen and pelvis CT 06/10/2017, reviewed. ASSESSMENT: This is a 47-year-old white male with the possible diagnosis of high-grade astrocytoma versus glioblastoma. The patient is being evaluated for possible radiotherapeutic treatment treatment options. PLAN: At this point, I have discussed the case with Dr. Yanes. Due to the fact that patient is nonresponsive, I was not able to discuss with him treatment options, but treatment options will depend on the result of the final resection, as well as extent of resection and the type of tumor. Radiation therapy most likely will have a part in the treatment of this patient. I left two of my business cards and spoke to the nurse taking care of him and I told them if the mother or family member wanted to call me, they could if they had any questions. It appears in the records that the patient is scheduled to have craniotomy on Friday and will evaluate the patient following surgical resection. At this point, I will wait for the results of everything to determine how to proceed. Dr. Yanes, thank you very much for for your referral of this patient and for allowing me to participate in his care. Should you have any further questions or concerns, please do not hesitate to contact me. MD SILVA Solorzano/FERNY , 05:42 PM , 06:49 PM CHERYL
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
[2017-06-19] MEDS: MIDAZOLAM 100 MG/100 ML INJ 100 ML IV PRN (13:25)
[2017-06-19] MEDS: MULTIVITAMIN INJ 10 ML, THIAMINE INJ 100 MG, FOLIC ACID INJ 1 MG in SODIUM CHLORID 0.9%... IV SCH (15:00)
[2017-06-19] MEDS: ATORVASTATIN 10 MG TAB PO SCH (20:18)
[2017-06-19] MEDS: OLANZapine 5 MG TAB PO SCH (20:18)
[2017-06-19] MEDS: ACETAMINOPHEN 650 MG/20.3 ML UDC PO PRN (20:21)
[2017-06-19] MEDS ORDERED: METOPROLOL TARTRATE 5 MG/5 ML VIAL ONE (21:43)
[2017-06-19] MEDS ORDERED: METOPROLOL TARTRATE 5 MG/5 ML VIAL IV PUSH ONE ×2 (21:45→21:50)
[2017-06-20] VITALS (16 sets, daily range): BP systolic 99–129; BP diastolic 55–67; PULSE 84–124; RESP 22–25; TEMP 98.2–100.9; O2SAT 94–100
[2017-06-20] MEDS: PROPOFOL 1000 MG/100 ML INJ 100 ML IV PRN ×6 (00:24→20:38)
[2017-06-20] MEDS: OXACILLIN INJ 2 GM in SODIUM CHLORIDE 0.9% INJ 100 ML IV SCH ×4 (01:18→21:09)
[2017-06-20] MEDS: MIDAZOLAM 100 MG/100 ML INJ 100 ML IV PRN ×2 (01:18→20:35)
[2017-06-20] MEDS: CHLORHEXIDINE GLUCONATE 2 % 1 PACK (2 CLOTHS) TOP SCH (02:13)
[2017-06-20] MEDS ORDERED: CHLORHEXIDINE GLUCONATE 2 % 1 PACK (2 CLOTHS) TOPICAL PRN (02:15)
[2017-06-20] MEDS ORDERED: LACTATED RINGER'S 1000 ML IV PRN (02:15)
[2017-06-20] MEDS ORDERED: SODIUM CHLORID 0.9% 500 ML IV PRN (02:15)
[2017-06-20] MEDS ORDERED: POVIDONE IODINE 5% (ANTISEPSIS KIT) 4 APPLICATIONS EACH NARE PRN (02:15)
[2017-06-20] MEDS: fentaNYL DRIP 250 ML IV PRN ×2 (03:01→16:00)
[2017-06-20] MEDS: MORPHINE SULFATE 2 MG/ML INJ IV PUSH PRN (05:03)
[2017-06-20] MEDS: FOSPHENYTOIN SODIUM 100 MG PE/2 ML VIAL IV SCH ×2 (05:42→20:34)
[2017-06-20] MEDS ORDERED: VANCOMYCIN HCL 1000 MG VIAL ONE (07:43)
[2017-06-20] MEDS ORDERED: THROMBIN (TOPICAL) 5,000 UNIT VIAL ONE ×2 (07:44→10:02)
[2017-06-20] MEDS ORDERED: BUPIVACAINE/EPINEPHRINE 0.5% PF 30 ML VIAL ONE (07:44)
[2017-06-20] MEDS ORDERED: GELFOAM SIZE 100 ONE ×2 (07:44→10:05)
[2017-06-20] MEDS ORDERED: levETIRAcetam 500 MG/5 ML VIAL IV ONE (07:44)
[2017-06-20] MEDS ORDERED: GENTAMICIN SULFATE 80 MG/2 ML VIAL ONE (07:45)
[2017-06-20] MEDS: CHLORHEXIDINE 0.12% (ORAL KIT) 15 ML CUP MT SCH ×2 (08:00→20:34)
[2017-06-20] MEDS ORDERED: ACETAMINOPHEN 1000 MG/100 ML 100 ML IV ONE (08:17)
[2017-06-20] MEDS: SODIUM CHLORIDE 0.9% FLUSH 10 ML FLUSH IV FLUSH SCH ×2 (09:00→21:09)
[2017-06-20] MEDS: ARTIFICIAL TEARS OPTH SOLN 15 ML BTL EACH EYE SCH ×3 (09:00→17:12)
[2017-06-20] MEDS: PANTOPRAZOLE SODIUM 40 MG VIAL IV PUSH SCH ×2 (09:00→20:34)
[2017-06-20] MEDS: FUROSEMIDE 40 MG/4 ML VIAL IV PUSH SCH ×2 (09:00→17:12)
[2017-06-20] MEDS: DEXAMETHASONE SOD PHOS 4 MG/ML VIAL IV PUSH SCH ×2 (09:00→20:35)
[2017-06-20] MEDS: DOCUSATE SODIUM 50 MG/SENNA 8.6 MG TAB PO SCH ×2 (09:00→20:36)
[2017-06-20] MEDS ORDERED: CHLORHEXIDINE GLUCONATE 0.12% 15 ML CUP ONE (09:01)
[2017-06-20] MEDS ORDERED: DEXAMETHASONE SOD PHOS 4 MG/ML VIAL IV ONE (12:00)
[2017-06-20] MEDS ORDERED: PHENYLEPHRINE HCL 10 MG/ML VIAL IV ONE (12:00)
[2017-06-20] MEDS ORDERED: VECURONIUM BROMIDE 20 MG VIAL IV ONE (12:00)
[2017-06-20] MEDS ORDERED: ONDANSETRON HCL 4 MG/2 ML VIAL IV ONE (12:00)
[2017-06-20] MEDS ORDERED: METOPROLOL TARTRATE 5 MG/5 ML VIAL IV ONE (12:00)
[2017-06-20] MEDS ORDERED: ROCURONIUM INJ 50 MG/5 ML SYRINGE IV PUSH ONE (12:00)
[2017-06-20] MEDS ORDERED: NORMOSOL R INJ 2,000 ML IV ONE (12:00)
[2017-06-20] MEDS ORDERED: LABETALOL HCL 100 MG/20 ML VIAL IV ONE (12:00)
[2017-06-20] MEDS ORDERED: PROPOFOL 200 MG/20 ML AMP IV ONE (12:00)
[2017-06-20] MEDS ORDERED: PHENYLEPH/NS 1000 MCG/10 ML SYR IV ONE (12:00)
--- NOTE | 2017-06-20 12:53 | PD.OP ---
Operative Report Date of Surgery: Jun 20, 2017 Preoperative Diagnosis: Right temporal multifocal high-grade glioma Postoperative Diagnosis: Same Procedure: Right temporal craniotomy with resection of multifocal mass/temporal lobectomy; intraoperative BrainLab stereotactic navigation using; microsurgical technique Anesthesia: Gen. endotracheal by Gia colon Surgeon: Alfredo Cantor M.D. Director Sales Support(s): Christine Bauman Operation and Findings: Following initiation of general endotracheal anesthesia the patient had invasive lines and Harding catheter in place along with sequential compression device. A gram of vancomycin and 10 mg Decadron was administered intravenously and he was positioned supine with the right shoulder elevated on a roll and head turned to the left side and secured in the Clarence 3 pin headrest. The BrainLab navigation system was then registered with external landmarks and good accuracy confirmed. A right curvilinear frontoparietal temporal incision area head shaved and prepped with ChloraPrep and sterilely draped in the usual sterile fashion. Incision was then made after infiltrating the scalp was 0.5% Marcaine with epinephrine solution a skin incision made and Eric clips were used at the scalp edges for hemostasis and the flap retracted with hooks. Right temporalis muscle and fascia was also incised and detached from the temporal bone and retracted with hooks. With an automated metal solderer temporal bur hole made and then with the craniotome the bone flap was elevated. The dura opened in a cruciate format and bone holes placed in the craniotomy edges with 4-0 Nurolon dural tacking stitches for hemostasis. Further dissection was undertaken using microtechnique with microscope magnification. Using BrainLab stereotactic guidance posterior portion of the multifocal larger right mass was located and proceeded with the resection of these masses with the temporal lobectomy about 6 cm posterior to the temporal pole with resection of the middle and inferior temporal gyrus extending all the way to the medial aspect including the uncus. Parts of the mass of the posterior temporal lobe were encountered which is also necrotic and fibrotic which is dissected out until more normal brain was evident. Bipolar cautery used for hemostasis in the resection bed which was then lined with Surgicel and no bleeding was encountered at this point. Cavity was filled with saline solution and the dura approximately using 4 Nurolon sutures with a central dural tacking stitch. Bone flap approximated using Midland mini plates and bur hole covers. The area was then copiously irrigated. The temporalis fascia was approximated and using 2-0 Vicryl sutures and the galea reapproximated using 3-0 Vicryl interrupted sutures and final scalp closure was with sumit. The Gracia head was then removed and a sterile pressing dressing applied. There were no intraoperative complications and all sponge and needle count was correct at the end of the procedure. Estimated blood loss about 500 cc. Patient was extubated and taken to the recovery room. Alfredo Cantor MD Jun 20, 2017 12:53
[2017-06-20] MEDS ORDERED: MIDAZOLAM HCL 2 MG/2 ML VIAL ONE (13:39)
[2017-06-20] MEDS: LORazepam 2 MG/ML VIAL IV PUSH PRN (14:00)
[2017-06-20] MEDS ORDERED: PHENYTOIN INJ 250 MG/5 ML VIAL IV ONE (14:30)
--- NOTE | 2017-06-20 14:40 | RADRPT ---
EXAM DATE/TIME: 06/20/2017 14:25 [facility] COMPARISON: CT BRAIN W/O CONTRAST, June 12, 2017, 4:27. INDICATIONS : Post operative right temporal craniotomy with resection of multifocal mass lobectomy. RADIATION DOSE: 49.86 CTDIvol (mGy) MEDICAL HISTORY : Seizures. SURGICAL HISTORY : Craniotomy. ENCOUNTER: Initial ACUITY: 1 day PAIN SCALE: Non-responsive LOCATION: Bilateral cranial TECHNIQUE: Multiple contiguous axial images were obtained of the head. Using automated exposure control and adj ustment of the mA and/or kV according to patient size, radiation dose was kept as low as reasonably a chievable to obtain optimal diagnostic quality images. DICOM format image data is available electro nically for review and comparison. FINDINGS: Patient has undergone interval right temporal craniotomy for resection of a right temporal mass. Ther e is a postsurgical defect in the right temporal lobe with air lucency identified an air fluid level in the right middle cranial fossa. There is a small amount of subdural air seen deep to the craniotom y site, overlying skin sumit and subcutaneous emphysema. There is associated low density in the rig ht temporal region consistent with edema. There is no hydrocephalus. Findings suggest 5 mm of right-t o-left shift. CONCLUSION: Postsurgical changes are noted as above. Giacomo Mendes MD on June 20, 2017 at 14:37 Board Certified Radiologist. This report was verified electronically.
[2017-06-20] MEDS: MULTIVITAMIN INJ 10 ML, THIAMINE INJ 100 MG, FOLIC ACID INJ 1 MG in SODIUM CHLORID 0.9%... IV SCH (16:30)
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
[2017-06-20 18:20] LABS: HEMATOCRIT 27.1 % (39.0-51.0); HEMOGLOBIN 9.6 GM/DL (13.0-17.0); MEAN CELL VOLUME 87.5 FL (80.0-100.0); MEAN CORPUSCULAR HEMOGLOBIN 30.9 PG (27.0-34.0); MEAN CORPUSCULAR HGB CONC 35.3 % (32.0-36.0); PLATELET COUNT 387 TH/MM3 (150-450); RED CELL DISTRIBUTION WIDTH 12.4 % (11.6-17.2)
[2017-06-20 18:31] LABS: PROTHROMBIN TIME - PATIENT 10.1 SEC (9.8-11.6)
[2017-06-20 18:44] LABS: CALCIUM 7.8 MG/DL (8.5-10.1); CREATININE 0.48 MG/DL (0.60-1.30)
[2017-06-20] MEDS: ATORVASTATIN 10 MG TAB PO SCH (20:36)
[2017-06-20] MEDS: OLANZapine 5 MG TAB PO SCH (20:43)
[2017-06-20] MEDS: ACETAMINOPHEN 650 MG/20.3 ML UDC PO PRN (22:29)
[2017-06-21] VITALS (20 sets, daily range): BP systolic 117–158; BP diastolic 51–78; PULSE 84–124; RESP 23–25; TEMP 100.4–103.1; O2SAT 96–100
[2017-06-21] MEDS: OXACILLIN INJ 2 GM in SODIUM CHLORIDE 0.9% INJ 100 ML IV SCH ×4 (01:53→20:09)
[2017-06-21] MEDS: fentaNYL DRIP 250 ML IV PRN ×3 (01:59→23:33)
[2017-06-21] MEDS: ACETAMINOPHEN 650 MG/20.3 ML UDC PO PRN ×3 (02:43→16:14)
[2017-06-21] MEDS: PROPOFOL 1000 MG/100 ML INJ 100 ML IV PRN ×6 (02:43→20:24)
[2017-06-21] MEDS: LORazepam 2 MG/ML VIAL IV PUSH PRN (03:34)
[2017-06-21] MEDS: CHLORHEXIDINE GLUCONATE 2 % 1 PACK (2 CLOTHS) TOP SCH (03:44)
[2017-06-21 04:31] LABS: AUTOMATED NEUTROPHIL # 10.8 TH/MM3 (1.8-7.7); BASOPHIL # 0.1 TH/MM3 (0-0.2); BASOPHIL % 0.8 % (0.0-2.0); EOSINOPHIL # 0.1 TH/MM3 (0-0.4); EOSINOPHIL % 0.6 % (0.0-4.0); HEMATOCRIT 27.9 % (39.0-51.0); HEMOGLOBIN 9.7 GM/DL (13.0-17.0); LYMPH % 8.3 % (9.0-44.0); LYMPHOCYTE # 1.1 TH/MM3 (1.0-4.8); MEAN CELL VOLUME 86.5 FL (80.0-100.0); MEAN CORPUSCULAR HEMOGLOBIN 30.2 PG (27.0-34.0); MEAN CORPUSCULAR HGB CONC 34.9 % (32.0-36.0); MEAN PLATELET VOLUME 7.8 FL (7.0-11.0); MONO % 8.1 % (0.0-8.0); MONOCYTE # 1.1 TH/MM3 (0-0.9); NEUT % 82.2 % (16.0-70.0); PLATELET COUNT 407 TH/MM3 (150-450); RED BLOOD COUNT 3.22 MIL/MM3 (4.50-5.90); RED CELL DISTRIBUTION WIDTH 12.2 % (11.6-17.2); WHITE BLOOD COUNT 13.2 TH/MM3 (4.0-11.0)
[2017-06-21 05:01] LABS: BICARBONATE 27.3 MEQ/L (21.0-32.0); CALCIUM 7.9 MG/DL (8.5-10.1); CREATININE 0.54 MG/DL (0.60-1.30)
[2017-06-21] MEDS: MIDAZOLAM 100 MG/100 ML INJ 100 ML IV PRN (08:55)
[2017-06-21] MEDS: FOSPHENYTOIN SODIUM 100 MG PE/2 ML VIAL IV SCH ×2 (08:56→20:08)
[2017-06-21] MEDS: DOCUSATE SODIUM 50 MG/SENNA 8.6 MG TAB PO SCH ×2 (08:56→20:07)
[2017-06-21] MEDS: PANTOPRAZOLE SODIUM 40 MG VIAL IV PUSH SCH ×2 (08:58→20:08)
[2017-06-21] MEDS: FUROSEMIDE 40 MG/4 ML VIAL IV PUSH SCH ×2 (08:58→18:07)
[2017-06-21] MEDS: DEXAMETHASONE SOD PHOS 4 MG/ML VIAL IV PUSH SCH ×2 (08:59→20:08)
[2017-06-21] MEDS: SODIUM CHLORIDE 0.9% FLUSH 10 ML FLUSH IV FLUSH SCH ×2 (08:59→20:08)
[2017-06-21] MEDS: CHLORHEXIDINE 0.12% (ORAL KIT) 15 ML CUP MT SCH ×2 (09:08→20:00)
[2017-06-21] MEDS: ARTIFICIAL TEARS OPTH SOLN 15 ML BTL EACH EYE SCH ×3 (09:08→18:08)
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
[2017-06-21] MEDS: MULTIVITAMIN INJ 10 ML, THIAMINE INJ 100 MG, FOLIC ACID INJ 1 MG in SODIUM CHLORID 0.9%... IV SCH (15:24)
[2017-06-21] MEDS: OLANZapine 5 MG TAB PO SCH (20:07)
[2017-06-21] MEDS: ATORVASTATIN 10 MG TAB PO SCH (20:08)
[2017-06-22] VITALS (19 sets, daily range): BP systolic 92–155; BP diastolic 52–71; PULSE 77–102; RESP 16–26; TEMP 100–101.8; O2SAT 98–100
[2017-06-22] MEDS: MIDAZOLAM 100 MG/100 ML INJ 100 ML IV PRN ×2 (00:26→15:30)
[2017-06-22] MEDS: OXACILLIN INJ 2 GM in SODIUM CHLORIDE 0.9% INJ 100 ML IV SCH ×4 (00:26→20:19)
[2017-06-22] MEDS: PROPOFOL 1000 MG/100 ML INJ 100 ML IV PRN ×6 (00:50→22:45)
[2017-06-22] MEDS: CHLORHEXIDINE GLUCONATE 2 % 1 PACK (2 CLOTHS) TOP SCH (04:00)
[2017-06-22 04:16] LABS: AUTOMATED NEUTROPHIL # 12.7 TH/MM3 (1.8-7.7); BASOPHIL # 0.1 TH/MM3 (0-0.2); BASOPHIL % 0.7 % (0.0-2.0); EOSINOPHIL # 0.1 TH/MM3 (0-0.4); EOSINOPHIL % 0.5 % (0.0-4.0); HEMOGLOBIN 9.8 GM/DL (13.0-17.0); LYMPH % 9.6 % (9.0-44.0); LYMPHOCYTE # 1.5 TH/MM3 (1.0-4.8); MEAN CELL VOLUME 86.5 FL (80.0-100.0); MEAN CORPUSCULAR HEMOGLOBIN 30.4 PG (27.0-34.0); MEAN CORPUSCULAR HGB CONC 35.1 % (32.0-36.0); MEAN PLATELET VOLUME 7.1 FL (7.0-11.0); MONO % 7.6 % (0.0-8.0); MONOCYTE # 1.2 TH/MM3 (0-0.9); NEUT % 81.6 % (16.0-70.0); PLATELET COUNT 461 TH/MM3 (150-450); RED BLOOD COUNT 3.23 MIL/MM3 (4.50-5.90); RED CELL DISTRIBUTION WIDTH 12.1 % (11.6-17.2); WHITE BLOOD COUNT 15.6 TH/MM3 (4.0-11.0)
[2017-06-22 04:37] LABS: BICARBONATE 30.1 MEQ/L (21.0-32.0); CALCIUM 8.3 MG/DL (8.5-10.1); CREATININE 0.55 MG/DL (0.60-1.30)
[2017-06-22] MEDS: DOCUSATE SODIUM 50 MG/SENNA 8.6 MG TAB PO SCH ×2 (08:42→20:17)
[2017-06-22] MEDS: PANTOPRAZOLE SODIUM 40 MG VIAL IV PUSH SCH ×2 (08:42→20:15)
[2017-06-22] MEDS: FOSPHENYTOIN SODIUM 100 MG PE/2 ML VIAL IV SCH ×2 (08:42→20:16)
[2017-06-22] MEDS: CHLORHEXIDINE 0.12% (ORAL KIT) 15 ML CUP MT SCH ×2 (08:43→21:06)
[2017-06-22] MEDS: DEXAMETHASONE SOD PHOS 4 MG/ML VIAL IV PUSH SCH ×2 (08:43→20:17)
[2017-06-22] MEDS: FUROSEMIDE 40 MG/4 ML VIAL IV PUSH SCH ×2 (08:43→17:10)
[2017-06-22] MEDS: SODIUM CHLORIDE 0.9% FLUSH 10 ML FLUSH IV FLUSH SCH ×2 (08:43→20:15)
[2017-06-22] MEDS: ARTIFICIAL TEARS OPTH SOLN 15 ML BTL EACH EYE SCH ×3 (08:44→17:10)
[2017-06-22] MEDS: ACETAMINOPHEN 650 MG/20.3 ML UDC PO PRN ×2 (09:22→15:04)
[2017-06-22] MEDS: fentaNYL DRIP 250 ML IV PRN (10:10)
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
[2017-06-22] MEDS: DEXMEDETOMIDINE INJ 200 MCG in SODIUM CHLORIDE 0.9% INJ 50 ML IV PRN ×2 (11:15→22:14)
[2017-06-22] MEDS: BISACODYL 10 MG SUPP RECTAL PRN (12:00)
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
[2017-06-22] MEDS: LORazepam 2 MG/ML VIAL IV PUSH PRN (12:21)
[2017-06-22] MEDS: LACTULOSE SYRUP 20 GM/30 ML CUP PO PRN (12:35)
[2017-06-22] MEDS: MAGNESIUM HYDROXIDE SUSP 30 ML CUP PO PRN (12:35)
[2017-06-22] MEDS: SENNOSIDES 8.6 MG TAB PO PRN (12:36)
[2017-06-22] MEDS: MULTIVITAMIN INJ 10 ML, THIAMINE INJ 100 MG, FOLIC ACID INJ 1 MG in SODIUM CHLORID 0.9%... IV SCH (15:06)
[2017-06-22] MEDS ORDERED: LABETALOL HCL 20 MG/4 ML VIAL IV PRN (16:30)
[2017-06-22] MEDS ORDERED: LABETALOL HCL 100 MG/20 ML VIAL IV PRN (19:30)
[2017-06-22] MEDS: ATORVASTATIN 10 MG TAB PO SCH (20:17)
[2017-06-22] MEDS: OLANZapine 5 MG TAB PO SCH (20:17)
[2017-06-22] MEDS ORDERED: SODIUM CHLOR 0.9% 1000 ML INJ 1,000 ML IV ONE (20:30)
[2017-06-23] VITALS (17 sets, daily range): BP systolic 101–160; BP diastolic 57–71; PULSE 68–102; RESP 22–31; TEMP 98.7–100.7; O2SAT 93–100
[2017-06-23] MEDS: fentaNYL DRIP 250 ML IV PRN (01:56)
[2017-06-23] MEDS: OXACILLIN INJ 2 GM in SODIUM CHLORIDE 0.9% INJ 100 ML IV SCH ×4 (02:00→20:08)
[2017-06-23] MEDS: PROPOFOL 1000 MG/100 ML INJ 100 ML IV PRN ×2 (02:57→07:47)
[2017-06-23] MEDS: CHLORHEXIDINE GLUCONATE 2 % 1 PACK (2 CLOTHS) TOP SCH ×2 (04:00→19:23)
[2017-06-23 04:03] LABS: AUTOMATED NEUTROPHIL # 16.1 TH/MM3 (1.8-7.7); BASOPHIL # 0.1 TH/MM3 (0-0.2); BASOPHIL % 0.6 % (0.0-2.0); EOSINOPHIL # 0.1 TH/MM3 (0-0.4); EOSINOPHIL % 0.8 % (0.0-4.0); HEMATOCRIT 29.8 % (39.0-51.0); HEMOGLOBIN 10.5 GM/DL (13.0-17.0); LYMPHOCYTE # 1.1 TH/MM3 (1.0-4.8); MEAN CELL VOLUME 86.6 FL (80.0-100.0); MEAN CORPUSCULAR HEMOGLOBIN 30.6 PG (27.0-34.0); MEAN CORPUSCULAR HGB CONC 35.3 % (32.0-36.0); MEAN PLATELET VOLUME 7.4 FL (7.0-11.0); MONO % 6.4 % (0.0-8.0); MONOCYTE # 1.2 TH/MM3 (0-0.9); NEUT % 86.2 % (16.0-70.0); PLATELET COUNT 605 TH/MM3 (150-450); RED BLOOD COUNT 3.44 MIL/MM3 (4.50-5.90); RED CELL DISTRIBUTION WIDTH 12.4 % (11.6-17.2); WHITE BLOOD COUNT 18.6 TH/MM3 (4.0-11.0)
[2017-06-23] MEDS: DEXMEDETOMIDINE INJ 200 MCG in SODIUM CHLORIDE 0.9% INJ 50 ML IV PRN (04:16)
[2017-06-23 04:23] LABS: ALBUMIN 2.1 GM/DL (3.4-5.0); ALT (GPT) 83 U/L (12-78); AST (GOT) 60 U/L (15-37); BICARBONATE 31.5 MEQ/L (21.0-32.0); BLOOD UREA NITROGEN 8 MG/DL (7-18); CALCIUM 8.6 MG/DL (8.5-10.1); CHLORIDE 103 MEQ/L (98-107); GLOMERULAR FILTRATION RATE 231 ML/MIN (>89); GLUCOSE,RANDOM 129 MG/DL (74-106); MAGNESIUM 2.2 MG/DL (1.5-2.5); SODIUM (NA) 139 MEQ/L (136-145)
[2017-06-23 04:26] LABS: ALKALINE PHOSPHATASE 154 U/L (45-117); TOTAL BILIRUBIN ADULT 0.5 MG/DL (0.2-1.0); TOTAL PROTEIN 7.1 GM/DL (6.4-8.2)
--- NOTE | 2017-06-23 06:29 | RADRPT ---
EXAM DATE/TIME: 06/23/2017 05:29 [facility] COMPARISON: CHEST SINGLE AP, June 19, 2017, 5:41. INDICATIONS : Short of breath. MEDICAL HISTORY : None. SURGICAL HISTORY : None. ENCOUNTER: Subsequent ACUITY: 1 week PAIN SCORE: 0/10 LOCATION: Bilateral chest FINDINGS: Portable AP view of the chest demonstrates a normal-sized cardiac silhouette. Endotracheal tube is in adequate position. Nasogastric tube distal tip is in the distal esophagus. Left subclavian central l ine distal tip is in the SVC. Multiple EKG lines overlie the patient. Lungs are underinflated with mi ld bibasilar airspace opacity, slightly improved from the prior study. No pneumothorax is visualized. CONCLUSION: 1. Mild bibasilar airspace opacity representing either atelectasis or airspace consolidation. This fi nding has slightly improved from the prior study. 2. The nasogastric tube distal tip is in the distal esophagus and should be advanced. Cruz Ramirez MD on June 23, 2017 at 6:26 Board Certified Radiologist. This report was verified electronically.
[2017-06-23] MEDS: CHLORHEXIDINE 0.12% (ORAL KIT) 15 ML CUP MT SCH ×2 (08:00→20:00)
[2017-06-23] MEDS: DEXMEDETOMIDINE INJ 1,000 MCG in SODIUM CHLOR 0.9% 250 ML INJ 240 ML IV PRN ×2 (08:11→19:42)
[2017-06-23] MEDS: DEXAMETHASONE SOD PHOS 4 MG/ML VIAL IV PUSH SCH ×2 (08:28→20:10)
[2017-06-23] MEDS: FUROSEMIDE 40 MG/4 ML VIAL IV PUSH SCH ×2 (08:29→17:24)
[2017-06-23] MEDS: FOSPHENYTOIN SODIUM 100 MG PE/2 ML VIAL IV SCH ×2 (08:29→19:39)
[2017-06-23] MEDS: DOCUSATE SODIUM 50 MG/SENNA 8.6 MG TAB PO SCH ×2 (08:30→20:10)
[2017-06-23] MEDS: SODIUM CHLORIDE 0.9% FLUSH 10 ML FLUSH IV FLUSH SCH ×2 (08:30→20:08)
[2017-06-23] MEDS: PANTOPRAZOLE SODIUM 40 MG VIAL IV PUSH SCH ×2 (08:30→20:10)
[2017-06-23] MEDS: ARTIFICIAL TEARS OPTH SOLN 15 ML BTL EACH EYE SCH ×3 (08:30→17:24)
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
[2017-06-23] MEDS ORDERED: HALOPERIDOL LACTATE 5 MG/ML AMP IV ONE (11:30)
[2017-06-23] MEDS ORDERED: FUROSEMIDE 20 MG/2 ML VIAL IV PUSH ONE (11:30)
[2017-06-23] MEDS: RESP: ALBUTEROL 2.5 MG/IPRATROPIUM 0.5 MG NEB (SCH) NEB ×3 (11:45→23:01)
[2017-06-23] MEDS: LORazepam 2 MG/ML VIAL IV PUSH PRN ×3 (12:00→17:24)
--- NOTE | 2017-06-23 12:08 | PD.HHIRBSE ---
Patient History Record/History Review Reason for Referral: The patient is a 47 year old right handed male who presented to the hospital with increased lethargy, no other prior health concerns, and then complianed of severe headache followed by GTC seizure. Head CT revealed right temporal hypodensities with left to right ship. The patient underwent right temporal craniotomy with resection of multifocal mass with lobectomy. He is now referred for baseline neurobehavioral status examination to assess cognitive, behavioral and emotional aspects of the injury and to provide treatment recommendations. Neuropsych Precautions: To be determined. Past Surgical/Medical History Past Surgery: No Major surgery in last 100 days: Yes Hx Seizures: Yes (06/08/17) Hx of Musculoskeletal Pro: No Hx of Cardiovascular Prob: No Hx of Respiratory Problem: No Hx of GI Problems: No Hx of Problems: No Hx of Immuno Disor: No Hx of Endocrine Problems: No Hx of Eye Probl: No Hx of Hearing or Ear Problems: No Hx Dental Problems: No Hx Psychiatric Problems: No Hx Blood Dyscrasias: No Hx of MDRO: No Hx of MRSA: No Hx of VRE: No Hx of CDIFF: No Hx of Tuberculosis: No Hx Chicken Pox: No If No, Have You Been Exposed W: No Hx Measles: No Hx of Body/Medical Devices: No Blood Transfusion History Will receive Blood /Blood prod: Yes Hx Blood Transfusions: No Medication Active Medications Albuterol/ Ipratropium (Duoneb Neb) 1 ampule Q6HR NEB NEB; Start 06/23/17 at 11: 45 Dexmedetomidine HCl 1000 mcg/ Sodium Chloride 250 ml @ 4.36 mls/hr TITRATE PRN IV Last administered on 06/23/17at 08:11; Admin Dose 15.27 MLS/HR; Start at 08:00 Furosemide (Lasix Inj) 20 mg NOW ONCE IV PUSH Last administered on 06/23/17at 11: 24; Admin Dose 20 MG; Start 06/23/17 at 11:30; Stop 06/23/17 at 11:31; Status DC Haloperidol Lactate (Haldol Inj) 2 mg NOW ONCE IV; Start 06/23/17 at 11:30; Stop 06/23/17 at 11:31; Status DC Labetalol HCl (Trandate Inj) 20 mg Q4H PRN IV; Start 06/22/17 at 16:30; Stop 06/22/17 at 19:25; Status DC Labetalol HCl (Trandate Inj) 20 mg Q4H PRN IV; Start 06/22/17 at 19:30 Sodium Chloride 1,000 ml @ 999 mls/hr BOLUS ONCE IV; Start 06/22/17 at 20:30; Stop 06/22/17 at 20:30; Status DC Mental Status Assessment Orientation: unable to asses Self, unable to asses Place, unable to asses Time , unable to asses Situation Observation The patient is currently sedated and intubated. Adjustment/Coping Assessment Adjustment/Coping: Not Assessed: Depression, Anxiety, Pain, Apathy, Awareness, Insight Observation The patient is presently sedated and intubated. LTG Status: Deferred STG Status: Deferred Team Members: Neuropsychologist Behavior Assessment Agitation: Moderate Observation Behaviorally, the patient demonstrated signs of agitation, but not impulsivity or disinhibition. There was no remarkable evidence of a formal thought disorder or psychosis. LTG - Status: Deferred STG Status: Deferred Team Members: Neuropsychologist Diagnosis/Discharge Plan Impression 47 year old man s/p right temporal craniotomy for resection of multifocal mass with lobectomy. He is now agitated and confused, which is interfering with his recovery. Diagnosis: (1) Major neurocognitive disorder due to another medical condition with behavioral disturbance Disinhibition Score: 28.00 Aggression Score: 17.50 Lability Score: 18.62 Agitated Behavior Total Score: 23 Maximizing acute care outcome It is recommended that the patient be monitored for emergent behavioral impulsivity as the medical condition evolves. This patients neuropathological challenges may limit his rehabilitation potential going forward, and these challenges will require specialized therapeutic skills to maximize outcome. Additionally, the patients family is experiencing ongoing issues of adjustment given the traumatic nature of the injury, and they will benefit from ongoing psychological assistance. At this point in the recovery process, the patient does not have cognitive capacity as the patient is unable to understand a situation and its likely consequences, nor is he able to manipulate information rationally. Cognitive capacity will be assessed throughout the recovery process. Additionally, the ABS was ordered in order to monitor his quality and quantity of agitation going forward in order to help guide any intervention. His hospital room was designated as "MIN/LOW STIM" to facilitate his recovery. Also going forward, I will work with critical care intensivists to facilitate an optimal therapeutic outcome. Discharge Planning Anticipated Problems Ongoing areas of concern will include behavioral impulsivity, lack of insight and judgment, which is expected to improve with time and treatment. Presently , the patient is agitated, intubated and sedated. Given the severity of the patient's injuries it is my clinical opinion that this patient will be unable to return to any type of productive employment for at least one year, perhaps longer and likely never. This patient is not considered safe to discharge home without supervision. Treatment Plan This clinician will continue to follow with you throughout the course of this patients critical care treatment, and I will be available to meet with the patients family/support system to facilitate their understanding and the ongoing care of their family member. The goals of neuropsychological intervention shall be both educational and supportive to the family/support system as is deemed clinically appropriate. Discharge Needs To be determined. Thank you Thank you for the opportunity to assist in this patients care. Chidi Sams, Ph.D., ABPP Board Certified in Clinical Neuropsychology [place] [employer] [place] Licensed Psychologist #[id number] Chidi Sams PhD Jun 23, 2017 12:07 pm
[2017-06-23] MEDS: MORPHINE SULFATE 2 MG/ML INJ IV PUSH PRN ×2 (13:34→17:25)
[2017-06-23] MEDS: MULTIVITAMIN INJ 10 ML, THIAMINE INJ 100 MG, FOLIC ACID INJ 1 MG in SODIUM CHLORID 0.9%... IV SCH (15:29)
[2017-06-23] MEDS: ACETAMINOPHEN 1000 MG/100 ML 100 ML IV PRN (19:38)
[2017-06-23] MEDS: ATORVASTATIN 10 MG TAB PO SCH (20:10)
[2017-06-23] MEDS: OLANZapine 5 MG TAB PO SCH (20:10)
--- NOTE | 2017-06-23 23:41 | HHI.NSPN ---
History Chief Complaint: Seizures. Brain mass. Interval History 47-year-old male status post right craniotomy for resection glioblastoma. Exam Results Vital Signs Date Time Temp Pulse Resp B/P (MAP) Pulse Ox O2 Delivery O2 Flow Rate FiO2 06/23/17 23:03 98 Nasal Cannula 2.00 06/23/17 22:00 92 06/23/17 20:00 100.4 29 112/61 (78) 06/23/17 09:47 45 Intake and Output 06/23/17 06/23/17 06/24/17 08:00 16:00 00:00 Intake Total 1162 ml 300 ml Output Total 1250 ml 3750 ml Balance -88 ml -3450 ml Physical Examination General: Pt extubated. Mild agitation Eyes: Pupils equal and reactive. Sclera anicteric. Resp: clear, nonlabored Heart: regular rate Head: Incision dry. No drainage. No significant edema Neuro: Patient is on fentanyl and Precedex. He has a right gaze which is conjugate in response to visual stimulation and voiced. He is extubated. Mild lethargy. Mild agitation Says a few words with moderate dysarthria in response to questions. Grasps his right hand to command. Lab, Micro, Other Results Laboratory Tests Test 06/23/17 03:45 White Blood Count 18.6 TH/MM3 Red Blood Count 3.44 MIL/MM3 Hemoglobin 10.5 GM/DL Hematocrit 29.8 % Mean Corpuscular Volume 86.6 FL Mean Corpuscular Hemoglobin 30.6 PG Mean Corpuscular Hemoglobin Concent 35.3 % Red Cell Distribution Width 12.4 % Platelet Count 605 TH/MM3 Mean Platelet Volume 7.4 FL Neutrophils (%) (Auto) 86.2 % Lymphocytes (%) (Auto) 6.0 % Monocytes (%) (Auto) 6.4 % Eosinophils (%) (Auto) 0.8 % Basophils (%) (Auto) 0.6 % Neutrophils # (Auto) 16.1 TH/MM3 Lymphocytes # (Auto) 1.1 TH/MM3 Monocytes # (Auto) 1.2 TH/MM3 Eosinophils # (Auto) 0.1 TH/MM3 Basophils # (Auto) 0.1 TH/MM3 CBC Comment DIFF FINAL Differential Comment Blood Urea Nitrogen 8 MG/DL Creatinine 0.40 MG/DL Random Glucose 129 MG/DL Total Protein 7.1 GM/DL Albumin 2.1 GM/DL Calcium Level 8.6 MG/DL Magnesium Level 2.2 MG/DL Alkaline Phosphatase 154 U/L Aspartate Amino Transf (AST/SGOT) 60 U/L Alanine Aminotransferase (ALT/SGPT) 83 U/L Total Bilirubin 0.5 MG/DL Sodium Level 139 MEQ/L Potassium Level 4.2 MEQ/L Chloride Level 103 MEQ/L Carbon Dioxide Level 31.5 MEQ/L Anion Gap 5 MEQ/L Estimat Glomerular Filtration Rate 231 ML/MIN Medical Decision Making Impression and Plan Impression: 1. Stable neurologic exam, now extubated. Postop resection she began. Plan: Discussed with family Continue medications as needed for agitation. Monitor sodium Okay for Lovenox from neurosurgical standpoint. Continue therapy Anticipate need for inpatient rehabilitation Follow-up CT scan depending on clinical course. Rohan Walker MD Jun 23, 2017 23:41
[2017-06-24] VITALS (13 sets, daily range): BP systolic 99–113; BP diastolic 57–67; PULSE 78–99; RESP 25–30; TEMP 98.7–100.4; O2SAT 93–100
[2017-06-24] MEDS: OXACILLIN INJ 2 GM in SODIUM CHLORIDE 0.9% INJ 100 ML IV SCH ×4 (03:04→20:00)
[2017-06-24] MEDS: RESP: ALBUTEROL 2.5 MG/IPRATROPIUM 0.5 MG NEB (SCH) NEB ×4 (03:54→21:56)
--- NOTE | 2017-06-24 04:56 | RADRPT ---
EXAM DATE/TIME: 06/24/2017 04:40 [facility] COMPARISON: CHEST SINGLE AP, June 19, 2017, 5:41. CHEST SINGLE AP, June 23, 2017, 5:29. INDICATIONS : Respiratory disease. MEDICAL HISTORY : Seizures. SURGICAL HISTORY : Craniotomy. ENCOUNTER: Subsequent ACUITY: 1 week PAIN SCORE: Non-responsive. LOCATION: Bilateral chest FINDINGS: Portable AP view of the chest demonstrates a normal-sized cardiac silhouette. Left subclavian central line distal tip is in the SVC. The nasogastric tube and endotracheal tube have been removed. There i s patchy airspace consolidation in the lower lung zones bilaterally, left greater than right. No pneu mothorax or pleural effusion is identified. CONCLUSION: Airspace consolidation in the lower lung zones bilaterally, left greater than right, similar to the p rior 2 examinations. Cruz Ramirez MD on June 24, 2017 at 4:54 Board Certified Radiologist. This report was verified electronically.
[2017-06-24 06:03] LABS: AUTOMATED NEUTROPHIL # 10.7 TH/MM3 (1.8-7.7); BASOPHIL # 0.1 TH/MM3 (0-0.2); BASOPHIL % 0.7 % (0.0-2.0); EOSINOPHIL # 0.2 TH/MM3 (0-0.4); EOSINOPHIL % 1.8 % (0.0-4.0); HEMATOCRIT 28.4 % (39.0-51.0); LYMPHOCYTE # 1.6 TH/MM3 (1.0-4.8); MEAN CELL VOLUME 86.4 FL (80.0-100.0); MEAN CORPUSCULAR HEMOGLOBIN 30.5 PG (27.0-34.0); MEAN CORPUSCULAR HGB CONC 35.3 % (32.0-36.0); MEAN PLATELET VOLUME 7.3 FL (7.0-11.0); MONO % 5.7 % (0.0-8.0); MONOCYTE # 0.8 TH/MM3 (0-0.9); NEUT % 79.8 % (16.0-70.0); PLATELET COUNT 636 TH/MM3 (150-450); RED BLOOD COUNT 3.28 MIL/MM3 (4.50-5.90); RED CELL DISTRIBUTION WIDTH 12.1 % (11.6-17.2); WHITE BLOOD COUNT 13.4 TH/MM3 (4.0-11.0)
[2017-06-24 06:37] LABS: ALKALINE PHOSPHATASE 134 U/L (45-117); ALT (GPT) 67 U/L (12-78); AST (GOT) 44 U/L (15-37); BICARBONATE 29.7 MEQ/L (21.0-32.0); BLOOD UREA NITROGEN 11 MG/DL (7-18); CALCIUM 8.8 MG/DL (8.5-10.1); CHLORIDE 103 MEQ/L (98-107); CREATININE 0.58 MG/DL (0.60-1.30); GLOMERULAR FILTRATION RATE 150 ML/MIN (>89); GLUCOSE,RANDOM 102 MG/DL (74-106); MAGNESIUM 2.1 MG/DL (1.5-2.5); SODIUM (NA) 141 MEQ/L (136-145); TOTAL BILIRUBIN ADULT 0.5 MG/DL (0.2-1.0); TOTAL PROTEIN 6.8 GM/DL (6.4-8.2)
[2017-06-24] MEDS: CHLORHEXIDINE 0.12% (ORAL KIT) 15 ML CUP MT SCH ×2 (08:00→20:00)
[2017-06-24] MEDS: ACETAMINOPHEN 1000 MG/100 ML 100 ML IV PRN ×2 (08:40→18:56)
[2017-06-24] MEDS: SODIUM CHLORIDE 0.9% FLUSH 10 ML FLUSH IV FLUSH SCH ×2 (08:42→21:00)
[2017-06-24] MEDS: PANTOPRAZOLE SODIUM 40 MG VIAL IV PUSH SCH ×2 (08:42→21:17)
[2017-06-24] MEDS: DEXAMETHASONE SOD PHOS 4 MG/ML VIAL IV PUSH SCH ×2 (08:42→21:15)
[2017-06-24] MEDS: FUROSEMIDE 40 MG/4 ML VIAL IV PUSH SCH (08:42)
[2017-06-24] MEDS: FOSPHENYTOIN SODIUM 100 MG PE/2 ML VIAL IV SCH ×2 (08:43→21:13)
[2017-06-24] MEDS: ARTIFICIAL TEARS OPTH SOLN 15 ML BTL EACH EYE SCH ×3 (08:44→18:00)
[2017-06-24] MEDS: DOCUSATE SODIUM 50 MG/SENNA 8.6 MG TAB PO SCH ×2 (08:44→21:00)
[2017-06-24] MEDS: MORPHINE SULFATE 2 MG/ML INJ IV PUSH PRN (11:13)
--- NOTE | 2017-06-24 12:04 | HHI.PR ---
Neuropsych Behavior Behavior: Moderate: Impulsive/Agitated Cognitive Cognitive: Unable to Asses: Cognitive, Attention/Concentration, Confused/ Orientation, Insight/Awareness, Judgement/Problem-Solving, Memory Psychosocial Psychosocial: Intact: Psychosocial, Family/Other Adjustment, Realistic Expectation, Unable to Asses: Self-Esteem/Confidence Progress Notes/Response to Tx Contents of Sessions: Adjustment, Level of Consciousness Time with Patient: 30 minutes Premorbid psychological status Premorbid Cognitive, Emotional and Behavioral Status: Stable. The patient has high school years of education and a solid work history prior to this injury. The patient has no prior psychiatric difficulties, as described above. Substance abuse history is unremarkable. Behavioral Reactions of Patient and Family/Support System: Stable. The patient s family is experiencing ongoing issues of adjustment given the nature of the injury, and this aspect of recovery will require ongoing monitoring. Emotional/Behavioral Status of Patient and Family/Support System: Stable. Pertinent issues, if appropriate to this patients clinical care, are described in detail above. Maximizing acute care outcome It is recommended that the patient be monitored for emergent behavioral impulsivity as the medical condition evolves. This patients neuropathological challenges may limit his rehabilitation potential going forward, and these challenges will require specialized therapeutic skills to maximize outcome. Additionally, the patients family is experiencing ongoing issues of adjustment given the traumatic nature of the injury, and they will benefit from ongoing psychological assistance. At this point in the recovery process, the patient does not have cognitive capacity as the patient is unable to understand a situation and its likely consequences, nor is he able to manipulate information rationally. Cognitive capacity will be assessed throughout the recovery process. Additionally, the ABS was ordered in order to monitor his quality and quantity of agitation going forward in order to help guide any intervention. His hospital room was designated as "MIN/LOW STIM" to facilitate his recovery. Also going forward, I will work with critical care intensivists to facilitate an optimal therapeutic outcome. Anticipated Problems Ongoing areas of concern will include behavioral impulsivity, lack of insight and judgment, which is expected to improve with time and treatment. Presently , the patient is agitated, intubated and sedated. Given the severity of the patient's injuries it is my clinical opinion that this patient will be unable to return to any type of productive employment for at least one year, perhaps longer and likely never. This patient is not considered safe to discharge home without supervision. Treatment Plan This clinician will continue to follow with you throughout the course of this patients critical care treatment, and I will be available to meet with the patients family/support system to facilitate their understanding and the ongoing care of their family member. The goals of neuropsychological intervention shall be both educational and supportive to the family/support system as is deemed clinically appropriate. Disinhibition Score: 36.68 Aggression Score: 17.50 Lability Score: 14.00 Agitated Behavior Total Score: 27 Impression 47 year old man s/p right temporal craniotomy for resection of multifocal mass with lobectomy. He is now agitated and confused, which is interfering with his recovery. Diagnosis: (1) Major neurocognitive disorder due to another medical condition with behavioral disturbance Progress Note Narrative Ongoing follow-up of patient seen bedside. Discussion with patient's mother. Discussion with Journeyman Glazier. The patient remains quite agitated/restless, with an ABS score of 27 (36.7, 17.5, 14), falling at the moderately agitated range. He remains in restraints. He remains in a MIN/LOW Stim room. Suggestion for neurobehavioral management includes VPA 500 BID, unless medically contraindicated, with a Haldol PRN. I will follow this patient closely with you. Chidi Sams PhD Jun 24, 2017 12:04 pm
--- NOTE | 2017-06-24 13:54 | HHI.NSPN ---
(Nadege Romano) Note Status Status: Progress Note (Nadege Romano) Interval History Interval History 06/09/17: Pt sedated. When sedation held pt reported gets agitated. Pupils 3mm bilaterally reactive bilaterally. P[place] at [place] She states he has always been healthy other than seasonal depression more in the winter. She denies any history of cancers or seizures. She states he has a history of trauma and was here about a year ago. 06/10/17: Pt sedated. When sedation held pt was agitated moving all 4 extremities, pt re-sedated. Not following commands. Intubated. 06/12/17: Pt underwent a right temporal chandu hole with brain mass biopsy. Pt is sedated and intubated. He reportedly gets agitated when sedation weaned so he is being weaned slowly. 06/13/17: Pt sedated on Fentanyl, Diprivan, and Versed drips but weaning doses. He is intubated. Attempts to open eyes. When sedation held by RN reportedly followed commands. 06/14/17: Pt was extubated yesterday but required reintubation. He is currently sedated on Diprivan and Fentanyl drips. He opens eyes slightly to voice with sedation and follows commands. 06/15/17: Pt intubated and sedated. He is sedated on Diprivan and Fentanyl drips. He opens eyes slightly. Followed some commands with sedation and follows when sedation held by RN. 06/16/17: Pt intubated and sedated on Diprivan and Fentanyl drips. He opens eyes when sedation decreased and follows but gets agitated. 06/17/17: Pt sedated on Diprivan and Fentanyl drips. He opens eyes with sedation decreased and follows commands. He is intubated FiO2 65% and sats 93- 94% 06/18/17: Pt sedated on Diprivan and Fentanyl drips and intubated. He opens eyes slightly to voice. He follows more when sedation decreased but just got some medication for agitation. 06/21: s/p debulking of right temporal glioma yesterday by Dr. Cantor. pt intubated and on sedative drips. opening eyes, reported to spont moves extremities, not following commands. postop CT Dhaval completed 06/22: intubated, and well sedated on multiple sedative drips. opens eyes, but not following commands. in room. 06/24: pt extubated, very restless, agitated on precedex. mother requesting rehab upon discharge does not want home, also mother reports patient is not (Nadege Romano) Labs, Micro, & Vital Signs Results Date Time Temp Pulse Resp B/P (MAP) Pulse Ox O2 Delivery O2 Flow Rate FiO2 06/24/17 12:00 98 06/24/17 12:00 99.4 98 28 108/62 (77) 94 06/24/17 10:55 99 Nasal Cannula 5.00 06/24/17 10:00 99 06/24/17 08:00 100.4 96 26 113/67 (82) 96 06/24/17 08:00 96 06/24/17 06:20 93 Nasal Cannula 5.00 06/24/17 06:00 92 06/24/17 04:00 98.7 78 25 99/57 (71) 100 06/24/17 04:00 88 06/24/17 02:00 81 06/24/17 00:00 79 06/24/17 00:00 98.9 83 26 107/61 (76) 95 06/23/17 23:03 98 Nasal Cannula 2.00 06/23/17 22:00 92 06/23/17 20:00 100.4 95 29 112/61 (78) 99 06/23/17 20:00 96 06/23/17 18:00 95 06/23/17 16:00 98 06/23/17 16:00 100.7 98 27 123/71 (88) 96 06/23/17 14:00 94 Constitutional Vital Signs Date Time Temp Pulse Resp B/P (MAP) Pulse Ox O2 Delivery O2 Flow Rate FiO2 06/24/17 12:00 98 06/24/17 12:00 99.4 98 28 108/62 (77) 94 06/24/17 10:55 99 Nasal Cannula 5.00 06/24/17 10:00 99 06/24/17 08:00 100.4 96 26 113/67 (82) 96 06/24/17 08:00 96 06/24/17 06:20 93 Nasal Cannula 5.00 06/24/17 06:00 92 06/24/17 04:00 98.7 78 25 99/57 (71) 100 06/24/17 04:00 88 06/24/17 02:00 81 06/24/17 00:00 79 06/24/17 00:00 98.9 83 26 107/61 (76) 95 06/23/17 23:03 98 Nasal Cannula 2.00 06/23/17 22:00 92 06/23/17 20:00 100.4 95 29 112/61 (78) 99 06/23/17 20:00 96 06/23/17 18:00 95 06/23/17 16:00 98 06/23/17 16:00 100.7 98 27 123/71 (88) 96 06/23/17 14:00 94 (Nadege Romano) Physical Exam General: mildly sedated on Precedex but awake, mildly agitated and restless in bed. Eyes: Pupils equal. Sclera anicteric. Resp: clear, nonlabored Head: Incision dry. No drainage. No significant edema Neuro: confused, restless, says few words Hand mittens in place Resp: clear Heart: regular rate (Nadege Romano) Medications Current Medications Current Medications Medications (Trade) Dose Ordered Sig/Gerald Route PRN Reason Start Time Stop Time Status Last Admin Dose Admin Lorazepam (Ativan Inj) 1 mg Q2H PRN IV PUSH SEIZURES 06/08/17 11:15 06/23/17 12:00 Sodium Chloride (NS Flush) 2 ml UNSCH PRN IV FLUSH FLUSH AFTER USING IV ACCESS 06/08/17 12:30 06/09/17 07:36 Sodium Chloride (NS Flush) 2 ml BID IV FLUSH 06/08/17 21:00 06/23/17 08:30 Artificial Tears (Tears Naturale Opth Soln) 1 drop TID EACH EYE 06/08/17 13:00 06/24/17 08:44 Ondansetron HCl (Zofran Inj) 4 mg Q6H PRN IV PUSH NAUSEA OR VOMITING 06/08/17 12:30 06/22/17 17:58 Albuterol Sulfate (Albuterol Neb) 2.5 mg Q2HR NEB PRN INH SOB/WHEEZING 06/08/17 12:30 06/17/17 07:58 Miscellaneous Information 1 Q361D XX 06/08/17 12:30 06/08/17 12:30 Chlorhexidine Gluconate (Chlorhexidine 2% Cloth) Taper DAILY@04 TOP 06/09/17 04:00 06/05/18 03:59 06/23/17 04:00 Chlorhexidine Gluconate (Chlorhexidine 2% Cloth) 3 pack UNSCH PRN TOP HYGIENIC CARE 06/08/17 12:30 Senna/Docusate Sodium (Lorin-Colace) 1 tab BID PO 06/08/17 21:00 06/23/17 08:30 Magnesium Hydroxide (Milk Of Magnesia Liq) 30 ml Q12H PRN PO Mild constipation 06/08/17 12:30 06/22/17 12:35 Sennosides (Senokot) 17.2 mg Q12H PRN PO Moderate constipation 06/08/17 12:30 06/22/17 12:36 Bisacodyl (Dulcolax Supp) 10 mg DAILY PRN RECTAL SEVERE CONSITIPATION 06/08/17 12:30 06/22/17 12:00 Lactulose (Lactulose Liq) 30 ml DAILY PRN PO SEVERE CONSITIPATION 06/08/17 12:30 06/22/17 12:35 Chlorhexidine Gluconate (Peridex 0.12% Liq) 15 ml BID@08,20 MT 06/08/17 20:00 06/24/17 08:00 Potassium Chloride 100 ml @ 50 mls/hr Q2H PRN IV For Potassium 2.8 - 3.2 mEq/L 06/08/17 12:30 Potassium Chloride 100 ml @ 50 mls/hr Q2H PRN IV For Potassium 2.8 - 3.2 mEq/L 06/08/17 12:30 Potassium Bicarb/ Potassium Chloride (K-Lyte Cl Eff) 50 meq UNSCH PRN PO For Potassium 3.3 - 3.5 mEq/L 06/08/17 12:30 06/22/17 09:22 Potassium Chloride 100 ml @ 25 mls/hr UNSCH PRN IV For Potassium 3.3 - 3.5 mEq/L 06/08/17 12:30 Potassium Chloride 100 ml @ 50 mls/hr Q2H PRN IV For Potassium 3.3 - 3.5 mEq/L 06/08/17 12:30 06/17/17 12:10 Magnesium Sulfate 4 gm/Sodium Chloride 100 ml @ 50 mls/hr UNSCH PRN IV For Magnesium 0.9 - 1.1 mg/dL 06/08/17 12:30 Magnesium Oxide (Mag-Ox) 800 mg UNSCH PRN PO For Magnesium 1.2 - 1.6 mg/dL 06/08/17 12:30 Magnesium Sulfate 2 gm/Sodium Chloride 100 ml @ 50 mls/hr UNSCH PRN IV For Magnesium 1.2 - 1.6 mg/dL 06/08/17 12:30 Potassium Phosphate (K-Phos) 2,000 mg Q4H PRN PO For Phosphorus < 2.5 mg/dL 06/08/17 12:30 Sodium Phosphate 30 mmol/Sodium Chloride 250 ml @ 42 mls/hr UNSCH PRN IV For Phosphorus < 2.5 mg/dL 06/08/17 12:30 06/10/17 08:29 Potassium Phosphate (K-Phos) 2,000 mg UNSCH PRN PO/TUBE SEE LABEL COMMENTS 06/08/17 12:30 Potassium Phosphate 30 mmol/ Sodium Chloride 260 ml @ 42 mls/hr UNSCH PRN IV SEE LABEL COMMENTS 06/08/17 12:30 06/14/17 07:57 Multivitamins 10 ml/Thiamine HCl 100 mg/Folic Acid 1 mg/Sodium Chloride 511.2 ml @ 125 mls/hr Q24H IV 06/09/17 15:00 06/23/17 15:29 Acetaminophen (Tylenol 650 Mg/ 20 ml Liq) 650 mg Q6H PRN PO fever 06/08/17 13:30 06/22/17 15:04 Atorvastatin Calcium (Lipitor) 10 mg HS PO 06/09/17 21:00 06/22/17 20:17 Pantoprazole Sodium (Protonix Inj) 40 mg Q12HR IV PUSH 06/10/17 21:00 06/24/17 08:42 Terbutaline Sulfate (Brethine Inj) 1 mg UNSCH PRN SQ FOR EXTRAVASATION PROTOCOL 06/11/17 21:45 Olanzapine (ZyPREXA) 5 mg HS PO 06/13/17 21:00 06/22/17 20:17 Morphine Sulfate (Morphine Inj) 2 mg Q3H PRN IV PUSH PAIN SCALE 4 TO 10 06/15/17 18:45 06/24/17 11:13 Furosemide (Lasix Inj) 40 mg BID@09,18 IV PUSH 06/16/17 13:15 06/24/17 08:42 Dexamethasone Sodium Phosphate (Decadron Inj) 4 mg BID IV PUSH 06/16/17 21:00 06/24/17 08:42 Oxacillin Sodium 2 gm/Sodium Chloride 100 ml @ 200 mls/hr Q6H IV 06/18/17 14:00 06/24/17 08:41 Midazolam HCl 100 ml @ 2 mls/hr TITRATE PRN IV SEDATION 06/19/17 13:00 06/22/17 15:30 Fosphenytoin Sodium (Cerebyx Inj) 200 mgpe BID IV 06/20/17 21:00 06/24/17 08:43 Labetalol HCl (Trandate Inj) 20 mg Q4H PRN IV SBP > 160 06/22/17 19:30 Dexmedetomidine HCl 1000 mcg/ Sodium Chloride 250 ml @ 4.36 mls/hr TITRATE PRN IV SEDATION 06/23/17 08:00 06/23/17 19:42 Albuterol/ Ipratropium (Duoneb Neb) 1 ampule Q6HR NEB NEB 06/23/17 11:45 06/24/17 10:55 Lorazepam (Ativan Inj) 2 mg Q1H PRN IV PUSH Agitation/Sedation 06/23/17 12:30 06/23/17 17:24 Acetaminophen 100 ml @ 400 mls/hr Q6H PRN IV FEVER 06/23/17 18:45 06/24/17 08:40 (Nadege Romano) Medical Decision Making MDM Remarks 47 y/o male with 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 on 06/11/17 s/p right temporal craniotomy with resection of multifocal mass/temporal lobectomy; intraoperative Brain Lab stereotactic navigation using; microsurgical technique 06/20/17 f/u postoperative CT Brain 06/20/17 with stable postop findings with edema Final pathology report 06/23/17: ANAPLASTIC ASTROCYTOMA, WHO GRADE III (Nadege Romano) Plan Plan Remarks cont Decadron serial neuro checks surgical dressing changes dw mother in room, questions answered, per request case mgt for rehab placement (Nadege Romano) Attending Statement The exam, history, and the medical decision-making described in the above note were completed with the assistance of the mid-level provider. I reviewed and agree with the findings presented. I attest that I had a [id number] encounter with the patient on the same day, and personally performed and documented my assessment and findings in the medical record. (Jayden Ribeiro MD) Nadege Romano Jun 24, 2017 13:54 Jayden Ribeiro MD Jun 27, 2017 20:35
[2017-06-24] MEDS: VALPROIC ACID 250 MG CAP PO SCH ×2 (14:15→21:13)
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
[2017-06-24] MEDS: MULTIVITAMIN INJ 10 ML, THIAMINE INJ 100 MG, FOLIC ACID INJ 1 MG in SODIUM CHLORID 0.9%... IV SCH (14:59)
[2017-06-24] MEDS: LORazepam 2 MG/ML VIAL IV PUSH PRN ×3 (15:00→23:34)
[2017-06-24] MEDS: POTASSIUM CHLOR 40 MEQ PREMIX 100 ML IV PRN ×2 (15:02→18:57)
[2017-06-24] MEDS ORDERED: VANCOMYCIN INJ 1,000 MG in SODIUM CHLOR 0.9% 250 ML INJ 250 ML IV ONE (16:00)
[2017-06-24] MEDS: FUROSEMIDE 20 MG/2 ML VIAL IV PUSH SCH (18:00)
[2017-06-24] MEDS: OLANZapine 5 MG TAB PO SCH (21:12)
[2017-06-24] MEDS: ATORVASTATIN 10 MG TAB PO SCH (21:13)
--- NOTE | 2017-06-24 21:24 | PD.ONC.PN ---
Subjective Subjective Remarks Resting in bed. Agitation. S/p extubation. Objective Data Date Time Temp Pulse Resp B/P (MAP) Pulse Ox O2 Delivery O2 Flow Rate FiO2 06/24/17 16:00 99.5 94 30 110/63 (79) 94 06/24/17 16:00 94 06/24/17 14:00 91 06/24/17 12:00 98 06/24/17 12:00 99.4 98 28 108/62 (77) 94 06/24/17 10:55 99 Nasal Cannula 5.00 06/24/17 10:00 99 06/24/17 08:00 100.4 96 26 113/67 (82) 96 06/24/17 08:00 96 06/24/17 06:20 93 Nasal Cannula 5.00 06/24/17 06:00 92 06/24/17 04:00 98.7 78 25 99/57 (71) 100 06/24/17 04:00 88 06/24/17 02:00 81 06/24/17 00:00 79 06/24/17 00:00 98.9 83 26 107/61 (76) 95 06/23/17 23:03 98 Nasal Cannula 2.00 06/23/17 22:00 92 06/24/17 06/24/17 06/24/17 06:59 14:59 22:59 Intake Total 0 ml 100 ml 100 ml Output Total 3550 ml Balance -3550 ml 100 ml 100 ml Result Diagram: 06/24/17 0525 06/24/17 0525 Laboratory Results Laboratory Tests Test 06/24/17 05:25 White Blood Count 13.4 TH/MM3 Red Blood Count 3.28 MIL/MM3 Hemoglobin 10.0 GM/DL Hematocrit 28.4 % Mean Corpuscular Volume 86.4 FL Mean Corpuscular Hemoglobin 30.5 PG Mean Corpuscular Hemoglobin Concent 35.3 % Red Cell Distribution Width 12.1 % Platelet Count 636 TH/MM3 Mean Platelet Volume 7.3 FL Neutrophils (%) (Auto) 79.8 % Lymphocytes (%) (Auto) 12.0 % Monocytes (%) (Auto) 5.7 % Eosinophils (%) (Auto) 1.8 % Basophils (%) (Auto) 0.7 % Neutrophils # (Auto) 10.7 TH/MM3 Lymphocytes # (Auto) 1.6 TH/MM3 Monocytes # (Auto) 0.8 TH/MM3 Eosinophils # (Auto) 0.2 TH/MM3 Basophils # (Auto) 0.1 TH/MM3 CBC Comment DIFF FINAL Differential Comment Blood Urea Nitrogen 11 MG/DL Creatinine 0.58 MG/DL Random Glucose 102 MG/DL Total Protein 6.8 GM/DL Albumin 2.0 GM/DL Calcium Level 8.8 MG/DL Magnesium Level 2.1 MG/DL Alkaline Phosphatase 134 U/L Aspartate Amino Transf (AST/SGOT) 44 U/L Alanine Aminotransferase (ALT/SGPT) 67 U/L Total Bilirubin 0.5 MG/DL Sodium Level 141 MEQ/L Potassium Level 3.1 MEQ/L Chloride Level 103 MEQ/L Carbon Dioxide Level 29.7 MEQ/L Anion Gap 8 MEQ/L Estimat Glomerular Filtration Rate 150 ML/MIN Imaging Studies Last 24 hours Impressions Chest X-Ray 06/24/17 0600 Signed Impressions: Service Date/Time: Saturday, June 24, 2017 04:40 - CONCLUSION: Airspace consolidation in the lower lung zones bilaterally, left greater than right, similar to the prior 2 examinations. Cruz Ramirez MD Administered Medications Medications (Trade) Dose Ordered Sig/Gerald Route PRN Reason Start Time Stop Time Status Last Admin Dose Admin Lorazepam (Ativan Inj) 1 mg Q2H PRN IV PUSH SEIZURES 06/08/17 11:15 06/23/17 12:00 Sodium Chloride (NS Flush) 2 ml UNSCH PRN IV FLUSH FLUSH AFTER USING IV ACCESS 06/08/17 12:30 06/09/17 07:36 Sodium Chloride (NS Flush) 2 ml BID IV FLUSH 06/08/17 21:00 06/23/17 08:30 Artificial Tears (Tears Naturale Opth Soln) 1 drop TID EACH EYE 06/08/17 13:00 06/24/17 18:00 Ondansetron HCl (Zofran Inj) 4 mg Q6H PRN IV PUSH NAUSEA OR VOMITING 06/08/17 12:30 06/22/17 17:58 Albuterol Sulfate (Albuterol Neb) 2.5 mg Q2HR NEB PRN INH SOB/WHEEZING 06/08/17 12:30 06/17/17 07:58 Miscellaneous Information 1 Q361D XX 06/08/17 12:30 06/08/17 12:30 Chlorhexidine Gluconate (Chlorhexidine 2% Cloth) Taper DAILY@04 TOP 06/09/17 04:00 06/05/18 03:59 06/23/17 04:00 Senna/Docusate Sodium (Lorin-Colace) 1 tab BID PO 06/08/17 21:00 06/23/17 08:30 Magnesium Hydroxide (Milk Of Magnesia Liq) 30 ml Q12H PRN PO Mild constipation 06/08/17 12:30 06/22/17 12:35 Sennosides (Senokot) 17.2 mg Q12H PRN PO Moderate constipation 06/08/17 12:30 06/22/17 12:36 Bisacodyl (Dulcolax Supp) 10 mg DAILY PRN RECTAL SEVERE CONSITIPATION 06/08/17 12:30 06/22/17 12:00 Lactulose (Lactulose Liq) 30 ml DAILY PRN PO SEVERE CONSITIPATION 06/08/17 12:30 06/22/17 12:35 Chlorhexidine Gluconate (Peridex 0.12% Liq) 15 ml BID@08,20 MT 06/08/17 20:00 06/24/17 08:00 Potassium Chloride 100 ml @ 50 mls/hr Q2H PRN IV For Potassium 2.8 - 3.2 mEq/L 06/08/17 12:30 06/24/17 18:57 Potassium Bicarb/ Potassium Chloride (K-Lyte Cl Eff) 50 meq UNSCH PRN PO For Potassium 3.3 - 3.5 mEq/L 06/08/17 12:30 06/22/17 09:22 Potassium Chloride 100 ml @ 50 mls/hr Q2H PRN IV For Potassium 3.3 - 3.5 mEq/L 06/08/17 12:30 06/17/17 12:10 Sodium Phosphate 30 mmol/Sodium Chloride 250 ml @ 42 mls/hr UNSCH PRN IV For Phosphorus < 2.5 mg/dL 06/08/17 12:30 06/10/17 08:29 Potassium Phosphate 30 mmol/ Sodium Chloride 260 ml @ 42 mls/hr UNSCH PRN IV SEE LABEL COMMENTS 06/08/17 12:30 06/14/17 07:57 Multivitamins 10 ml/Thiamine HCl 100 mg/Folic Acid 1 mg/Sodium Chloride 511.2 ml @ 125 mls/hr Q24H IV 06/09/17 15:00 06/24/17 14:59 Acetaminophen (Tylenol 650 Mg/ 20 ml Liq) 650 mg Q6H PRN PO fever 06/08/17 13:30 06/22/17 15:04 Atorvastatin Calcium (Lipitor) 10 mg HS PO 06/09/17 21:00 06/22/17 20:17 Pantoprazole Sodium (Protonix Inj) 40 mg Q12HR IV PUSH 06/10/17 21:00 06/24/17 08:42 Olanzapine (ZyPREXA) 5 mg HS PO 06/13/17 21:00 06/22/17 20:17 Morphine Sulfate (Morphine Inj) 2 mg Q3H PRN IV PUSH PAIN SCALE 4 TO 10 06/15/17 18:45 06/24/17 11:13 Dexamethasone Sodium Phosphate (Decadron Inj) 4 mg BID IV PUSH 06/16/17 21:00 06/24/17 08:42 Oxacillin Sodium 2 gm/Sodium Chloride 100 ml @ 200 mls/hr Q6H IV 06/18/17 14:00 06/24/17 14:59 Fosphenytoin Sodium (Cerebyx Inj) 200 mgpe BID IV 06/20/17 21:00 06/24/17 08:43 Dexmedetomidine HCl 1000 mcg/ Sodium Chloride 250 ml @ 4.36 mls/hr TITRATE PRN IV SEDATION 06/23/17 08:00 06/23/17 19:42 Albuterol/ Ipratropium (Duoneb Neb) 1 ampule Q6HR NEB NEB 06/23/17 11:45 06/24/17 17:30 Lorazepam (Ativan Inj) 2 mg Q1H PRN IV PUSH Agitation/Sedation 06/23/17 12:30 06/24/17 15:00 Acetaminophen 100 ml @ 400 mls/hr Q6H PRN IV FEVER 06/23/17 18:45 06/24/17 18:56 Furosemide (Lasix Inj) 20 mg BID@09,18 IV PUSH 06/24/17 18:00 06/24/17 18:00 Objective Remarks GENERAL: Well-nourished, well-developed patient, agitated SKIN: Warm and dry. HEAD: Normocephalic. incision on right methodist CARDIOVASCULAR: Regular rate and rhythm without murmurs. RESPIRATORY: Breath sounds equal bilaterally. No accessory muscle use. EXTREMITIES: No cyanosis, or edema. MUSCULOSKELETAL: Adequate muscle tone. NEUROLOGICAL: agitation Assessment/Plan Assessment 1. Anaplastic astrocytoma, WHO grader III: s/p resection by neurosurgery team on 06/21/2017. After he recovers from surgery will move forward with concurrent radiation therapy and chemotherapy followed by adjuvant chemotherapy. IDH1, IDH2 , MGMT, 1p19p studies pending. Will follow up results. Inpatient oncology team will continue to follow. 2. Anemia: Component of anemia of inflammation. Continue to follow. 3. Thrombocytosis: reactive due to recent surgery. Previously within normal limits. Continue to follow Cordelia Yanes MD Jun 24, 2017 21:24
[2017-06-24] MEDS: DEXMEDETOMIDINE INJ 1,000 MCG in SODIUM CHLOR 0.9% 250 ML INJ 240 ML IV PRN (22:44)
[2017-06-25] VITALS (14 sets, daily range): BP systolic 102–135; BP diastolic 63–75; PULSE 72–116; RESP 25–30; TEMP 98.6–99.9; O2SAT 92–98
[2017-06-25] MEDS: OXACILLIN INJ 2 GM in SODIUM CHLORIDE 0.9% INJ 100 ML IV SCH ×4 (02:37→19:41)
[2017-06-25] MEDS: CHLORHEXIDINE GLUCONATE 2 % 1 PACK (2 CLOTHS) TOP SCH (04:00)
[2017-06-25] MEDS: RESP: ALBUTEROL 2.5 MG/IPRATROPIUM 0.5 MG NEB (SCH) NEB ×4 (04:04→21:41)
[2017-06-25] MEDS: CHLORHEXIDINE 0.12% (ORAL KIT) 15 ML CUP MT SCH ×2 (08:00→19:41)
[2017-06-25] MEDS: SODIUM CHLORIDE 0.9% FLUSH 10 ML FLUSH IV FLUSH SCH ×2 (09:00→20:34)
[2017-06-25] MEDS ORDERED: HALOPERIDOL LACTATE 5 MG/ML AMP IV PUSH PRN (09:00)
[2017-06-25] MEDS: ARTIFICIAL TEARS OPTH SOLN 15 ML BTL EACH EYE SCH ×3 (09:00→18:00)
[2017-06-25] MEDS: FUROSEMIDE 20 MG/2 ML VIAL IV PUSH SCH ×2 (09:18→18:00)
[2017-06-25] MEDS: PANTOPRAZOLE SODIUM 40 MG VIAL IV PUSH SCH ×2 (09:22→20:33)
[2017-06-25] MEDS: DOCUSATE SODIUM 50 MG/SENNA 8.6 MG TAB PO SCH ×2 (09:23→20:34)
[2017-06-25] MEDS: VALPROIC ACID 250 MG CAP PO SCH ×2 (09:23→20:34)
[2017-06-25] MEDS: DEXAMETHASONE SOD PHOS 4 MG/ML VIAL IV PUSH SCH ×2 (09:24→20:32)
[2017-06-25] MEDS: FOSPHENYTOIN SODIUM 100 MG PE/2 ML VIAL IV SCH ×2 (09:25→20:33)
[2017-06-25] MEDS: MORPHINE SULFATE 2 MG/ML INJ IV PUSH PRN (10:29)
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
[2017-06-25] MEDS: LORazepam 2 MG/ML VIAL IV PUSH PRN ×2 (14:01→15:49)
[2017-06-25] MEDS: MULTIVITAMIN INJ 10 ML, THIAMINE INJ 100 MG, FOLIC ACID INJ 1 MG in SODIUM CHLORID 0.9%... IV SCH (15:00)
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
[2017-06-25] MEDS ORDERED: RASS Change Order XX ONE (17:15)
[2017-06-25] MEDS: DEXMEDETOMIDINE INJ 1,000 MCG in SODIUM CHLOR 0.9% 250 ML INJ 240 ML IV PRN (18:52)
[2017-06-25] MEDS: ATORVASTATIN 10 MG TAB PO SCH (20:34)
[2017-06-25] MEDS: OLANZapine 5 MG TAB PO SCH (20:34)
[2017-06-26] VITALS (13 sets, daily range): BP systolic 92–107; BP diastolic 56–68; PULSE 67–80; RESP 18–27; TEMP 97.3–98.7; O2SAT 95–100
[2017-06-26] MEDS: OXACILLIN INJ 2 GM in SODIUM CHLORIDE 0.9% INJ 100 ML IV SCH ×4 (02:45→19:53)
[2017-06-26] MEDS: DEXMEDETOMIDINE INJ 1,000 MCG in SODIUM CHLOR 0.9% 250 ML INJ 240 ML IV PRN ×2 (02:46→11:00)
[2017-06-26] MEDS: CHLORHEXIDINE GLUCONATE 2 % 1 PACK (2 CLOTHS) TOP SCH (03:08)
[2017-06-26] MEDS: RESP: ALBUTEROL 2.5 MG/IPRATROPIUM 0.5 MG NEB (SCH) NEB ×4 (03:59→20:34)
[2017-06-26 04:52] LABS: BICARBONATE 26.7 MEQ/L (21.0-32.0); CALCIUM 8.7 MG/DL (8.5-10.1); CREATININE 0.61 MG/DL (0.60-1.30); MAGNESIUM 2.1 MG/DL (1.5-2.5)
[2017-06-26] MEDS: CHLORHEXIDINE 0.12% (ORAL KIT) 15 ML CUP MT SCH ×2 (07:53→20:00)
[2017-06-26] MEDS: ARTIFICIAL TEARS OPTH SOLN 15 ML BTL EACH EYE SCH ×3 (07:53→18:00)
[2017-06-26] MEDS: SODIUM CHLORIDE 0.9% FLUSH 10 ML FLUSH IV FLUSH SCH ×2 (07:53→21:00)
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
[2017-06-26] MEDS: FOSPHENYTOIN SODIUM 100 MG PE/2 ML VIAL IV SCH ×2 (08:47→21:00)
[2017-06-26] MEDS: DEXAMETHASONE SOD PHOS 4 MG/ML VIAL IV PUSH SCH ×2 (08:47→21:00)
[2017-06-26] MEDS: PANTOPRAZOLE SODIUM 40 MG VIAL IV PUSH SCH ×2 (08:48→21:00)
[2017-06-26] MEDS: DOCUSATE SODIUM 50 MG/SENNA 8.6 MG TAB PO SCH ×2 (08:49→21:00)
[2017-06-26] MEDS: FUROSEMIDE 20 MG/2 ML VIAL IV PUSH SCH (08:49)
[2017-06-26] MEDS: VALPROIC ACID 250 MG CAP PO SCH ×2 (08:49→21:00)
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
[2017-06-26] MEDS: QUEtiapine FUMARATE 25 MG TAB PO SCH ×2 (12:16→18:13)
[2017-06-26] MEDS: ACETAMINOPHEN 1000 MG/100 ML 100 ML IV PRN (12:46)
[2017-06-26] MEDS: MULTIVITAMIN INJ 10 ML, THIAMINE INJ 100 MG, FOLIC ACID INJ 1 MG in SODIUM CHLORID 0.9%... IV SCH (13:22)
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
[2017-06-26] MEDS: ACETAMINOPHEN 650 MG/20.3 ML UDC PO PRN (20:03)
[2017-06-26] MEDS: ATORVASTATIN 10 MG TAB PO SCH (21:00)
[2017-06-26] MEDS: LORazepam 2 MG/ML VIAL IV PUSH PRN (21:07)
[2017-06-27] VITALS (14 sets, daily range): BP systolic 98–118; BP diastolic 56–81; PULSE 74–101; RESP 23–28; TEMP 97.3–98.6; O2SAT 93–98
[2017-06-27] MEDS: QUEtiapine FUMARATE 25 MG TAB PO SCH ×3 (01:40→17:36)
[2017-06-27] MEDS: OXACILLIN INJ 2 GM in SODIUM CHLORIDE 0.9% INJ 100 ML IV SCH ×4 (01:40→21:33)
[2017-06-27] MEDS: CHLORHEXIDINE GLUCONATE 2 % 1 PACK (2 CLOTHS) TOP SCH (03:08)
[2017-06-27] MEDS: ACETAMINOPHEN 650 MG/20.3 ML UDC PO PRN (03:09)
[2017-06-27] MEDS: RESP: ALBUTEROL 2.5 MG/IPRATROPIUM 0.5 MG NEB (SCH) NEB ×2 (04:00→08:45)
[2017-06-27 06:11] LABS: BICARBONATE 25.1 MEQ/L (21.0-32.0); CALCIUM 8.4 MG/DL (8.5-10.1); CREATININE 0.58 MG/DL (0.60-1.30)
[2017-06-27 06:13] LABS: PHENYTOIN (DILANTIN) 1.6 MCG/ML (10.0-20.0)
[2017-06-27] MEDS: CHLORHEXIDINE 0.12% (ORAL KIT) 15 ML CUP MT SCH ×2 (08:00→20:00)
[2017-06-27] MEDS: PANTOPRAZOLE SODIUM 40 MG VIAL IV PUSH SCH ×2 (08:54→21:02)
[2017-06-27] MEDS: FOSPHENYTOIN SODIUM 100 MG PE/2 ML VIAL IV SCH (08:55)
[2017-06-27] MEDS: VALPROIC ACID 250 MG CAP PO SCH ×2 (08:55→21:02)
[2017-06-27] MEDS: SODIUM CHLORIDE 0.9% FLUSH 10 ML FLUSH IV FLUSH SCH ×2 (08:56→21:03)
[2017-06-27] MEDS: DOCUSATE SODIUM 50 MG/SENNA 8.6 MG TAB PO SCH ×2 (08:56→21:02)
[2017-06-27] MEDS: ARTIFICIAL TEARS OPTH SOLN 15 ML BTL EACH EYE SCH ×3 (09:00→17:36)
[2017-06-27] MEDS: DEXAMETHASONE SOD PHOS 4 MG/ML VIAL IV PUSH SCH ×2 (09:53→21:02)
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
[2017-06-27] MEDS ORDERED: FOSPHENYTOIN INJ 1,000 MGPE in SODIUM CHLORIDE 0.9% INJ 50 ML IV ONE (12:45)
[2017-06-27] MEDS ORDERED: ACETAMINOPHEN 325 MG TAB PO PRN (13:45)
[2017-06-27] MEDS: MULTIVITAMIN INJ 10 ML, THIAMINE INJ 100 MG, FOLIC ACID INJ 1 MG in SODIUM CHLORID 0.9%... IV SCH (16:20)
[2017-06-27] MEDS: oxyCODONE/ACETAMINOPHEN 7.5 MG/325 MG TAB PO PRN (16:25)
[2017-06-27] MEDS ORDERED: FOSPHENYTOIN SODIUM 100 MG PE/2 ML VIAL IV SCH (21:00)
[2017-06-27] MEDS: ATORVASTATIN 10 MG TAB PO SCH (21:02)
[2017-06-27] MEDS: FOSPHENYTOIN INJ 300 MGPE in SODIUM CHLORIDE 0.9% INJ 50 ML IV SCH (21:03)
[2017-06-28] VITALS (9 sets, daily range): BP systolic 103–137; BP diastolic 58–81; PULSE 72–115; RESP 16–22; TEMP 97.3–100.5; O2SAT 94–98
[2017-06-28] MEDS: QUEtiapine FUMARATE 25 MG TAB PO SCH ×3 (01:15→17:41)
[2017-06-28] MEDS: oxyCODONE/ACETAMINOPHEN 7.5 MG/325 MG TAB PO PRN (01:15)
[2017-06-28] MEDS: OXACILLIN INJ 2 GM in SODIUM CHLORIDE 0.9% INJ 100 ML IV SCH ×4 (01:15→22:32)
[2017-06-28] MEDS: CHLORHEXIDINE GLUCONATE 2 % 1 PACK (2 CLOTHS) TOP SCH (04:00)
[2017-06-28 05:42] LABS: BICARBONATE 23.6 MEQ/L (21.0-32.0); CALCIUM 8.1 MG/DL (8.5-10.1); CREATININE 0.41 MG/DL (0.60-1.30); PHOSPHORUS 2.9 MG/DL (2.5-4.9)
[2017-06-28 05:43] LABS: PHENYTOIN (DILANTIN) 8.4 MCG/ML (10.0-20.0)
[2017-06-28] MEDS: DEXMEDETOMIDINE INJ 1,000 MCG in SODIUM CHLOR 0.9% 250 ML INJ 240 ML IV PRN (05:47)
[2017-06-28] MEDS: CHLORHEXIDINE 0.12% (ORAL KIT) 15 ML CUP MT SCH ×2 (08:00→20:00)
[2017-06-28] MEDS: DOCUSATE SODIUM 50 MG/SENNA 8.6 MG TAB PO SCH ×2 (09:00→21:00)
[2017-06-28] MEDS: ARTIFICIAL TEARS OPTH SOLN 15 ML BTL EACH EYE SCH ×3 (09:00→15:29)
[2017-06-28] MEDS: SODIUM CHLORIDE 0.9% FLUSH 10 ML FLUSH IV FLUSH SCH ×2 (09:00→22:32)
[2017-06-28] MEDS: PANTOPRAZOLE SODIUM 40 MG VIAL IV PUSH SCH ×2 (09:40→22:36)
[2017-06-28] MEDS: DEXAMETHASONE SOD PHOS 4 MG/ML VIAL IV PUSH SCH ×2 (09:40→22:37)
[2017-06-28] MEDS: VALPROIC ACID 250 MG CAP PO SCH ×2 (09:40→22:36)
[2017-06-28] MEDS: FOSPHENYTOIN INJ 300 MGPE in SODIUM CHLORIDE 0.9% INJ 50 ML IV SCH ×2 (09:41→22:32)
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
[2017-06-28] MEDS: MULTIVITAMIN INJ 10 ML, THIAMINE INJ 100 MG, FOLIC ACID INJ 1 MG in SODIUM CHLORID 0.9%... IV SCH (15:29)
[2017-06-28] MEDS: ATORVASTATIN 10 MG TAB PO SCH (22:33)
[2017-06-29] VITALS: BP 140/75; PULSE 101; RESP 22; TEMP 98; O2SAT 93
[2017-06-29] MEDS: OXACILLIN INJ 2 GM in SODIUM CHLORIDE 0.9% INJ 100 ML IV SCH ×4 (01:42→20:57)
[2017-06-29] MEDS: QUEtiapine FUMARATE 25 MG TAB PO SCH ×3 (01:42→18:10)
[2017-06-29 04:00] VITALS: BP 143/65; PULSE 92; RESP 22; TEMP 98.2; O2SAT 93
[2017-06-29] MEDS: CHLORHEXIDINE GLUCONATE 2 % 1 PACK (2 CLOTHS) TOP SCH (04:00)
[2017-06-29] MEDS: ARTIFICIAL TEARS OPTH SOLN 15 ML BTL EACH EYE SCH ×3 (07:57→12:40)
[2017-06-29] MEDS: CHLORHEXIDINE 0.12% (ORAL KIT) 15 ML CUP MT SCH ×2 (07:57→21:49)
[2017-06-29 08:00] VITALS: BP 132/73; PULSE 90; RESP 18; TEMP 99.3; O2SAT 92
[2017-06-29] MEDS: SODIUM CHLORIDE 0.9% FLUSH 10 ML FLUSH IV FLUSH SCH ×2 (09:00→21:09)
[2017-06-29] MEDS: FOSPHENYTOIN INJ 300 MGPE in SODIUM CHLORIDE 0.9% INJ 50 ML IV SCH ×2 (09:06→21:41)
[2017-06-29] MEDS: PANTOPRAZOLE SODIUM 40 MG VIAL IV PUSH SCH ×2 (09:08→20:58)
[2017-06-29] MEDS: DEXAMETHASONE SOD PHOS 4 MG/ML VIAL IV PUSH SCH ×2 (09:09→20:57)
[2017-06-29] MEDS: VALPROIC ACID 250 MG CAP PO SCH ×2 (09:10→20:58)
[2017-06-29] MEDS: DOCUSATE SODIUM 50 MG/SENNA 8.6 MG TAB PO SCH ×2 (09:12→09:19)
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
[2017-06-29 12:00] VITALS: BP 148/84; PULSE 104; RESP 18; TEMP 98; O2SAT 95
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
[2017-06-29] MEDS: MULTIVITAMIN INJ 10 ML, THIAMINE INJ 100 MG, FOLIC ACID INJ 1 MG in SODIUM CHLORID 0.9%... IV SCH (15:21)
[2017-06-29 16:00] VITALS: BP 146/78; PULSE 120; RESP 18; TEMP 98.5; O2SAT 93
[2017-06-29 20:00] VITALS: BP 124/64; PULSE 97; RESP 18; TEMP 100.4; O2SAT 94
[2017-06-29] MEDS: ATORVASTATIN 10 MG TAB PO SCH (20:58)
[2017-06-30] VITALS (9 sets, daily range): BP systolic 114–137; BP diastolic 62–84; PULSE 92–121; RESP 18–21; TEMP 97.1–99.2; O2SAT 94–97
[2017-06-30] MEDS: OXACILLIN INJ 2 GM in SODIUM CHLORIDE 0.9% INJ 100 ML IV SCH ×4 (01:46→20:00)
[2017-06-30] MEDS: QUEtiapine FUMARATE 25 MG TAB PO SCH ×3 (01:47→18:33)
[2017-06-30] MEDS: CHLORHEXIDINE GLUCONATE 2 % 1 PACK (2 CLOTHS) TOP SCH (03:40)
[2017-06-30] MEDS: CHLORHEXIDINE 0.12% (ORAL KIT) 15 ML CUP MT SCH ×2 (08:00→20:00)
[2017-06-30] MEDS: ARTIFICIAL TEARS OPTH SOLN 15 ML BTL EACH EYE SCH ×3 (08:07→18:33)
[2017-06-30] MEDS: SODIUM CHLORIDE 0.9% FLUSH 10 ML FLUSH IV FLUSH SCH ×2 (08:08→21:00)
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
[2017-06-30] MEDS ORDERED: PHENYTOIN SODIUM 100 MG CAP PO SCH (09:00)
[2017-06-30] MEDS: DOCUSATE SODIUM 50 MG/SENNA 8.6 MG TAB PO SCH ×2 (09:00→21:39)
[2017-06-30] MEDS: PANTOPRAZOLE SODIUM 40 MG VIAL IV PUSH SCH (09:57)
[2017-06-30] MEDS: DEXAMETHASONE 4 MG TAB PO SCH (09:57)
[2017-06-30] MEDS: VALPROIC ACID 250 MG CAP PO SCH ×2 (09:58→21:00)
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
[2017-06-30] MEDS: MULTIVITAMIN INJ 10 ML, THIAMINE INJ 100 MG, FOLIC ACID INJ 1 MG in SODIUM CHLORID 0.9%... IV SCH (15:00)
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
[2017-06-30] MEDS ORDERED: DEXA4TAB PO (17:06)
[2017-06-30] MEDS ORDERED: LIPI10TA PO (17:06)
[2017-06-30] MEDS ORDERED: DILA100C PO (17:06)
[2017-06-30] MEDS ORDERED: SERO25TA PO (17:06)
[2017-06-30] MEDS ORDERED: VALP250 PO (17:06)
--- NOTE | 2017-06-30 17:18 | HHI.FF ---
Face to Face Verification Diagnosis: (1) Astrocytoma (2) four right temporal masses with cerebral edema (3) EtOH dependence (4) Acute respiratory failure Physical Therapy Order: Evaluate and Treat, Improve ambulation, Strength and gait training Home Health Nursing Order: Wound care and dressing changes Nursing assessment with vital signs Instructions: Please check CBC, CMP, and Dilantin level on , 07/03/17, with results to Dr. Cordelia Yanes (Medical Oncologist). I have seen patient Raffy Jorge on 06/30/17. My clinical findings support the need for the requested home health care services because: Deconditioned w/ increased weakness High risk of falls I certify that my clinical findings support that this patient is homebound because: Post-op weakness Unsteady gait/balance Bonnie Garcia Jun 30, 2017 17:18 David Hinojosa DO Jul 03, 2017 11:03
--- NOTE | 2017-06-30 17:23 | HHI.DCPOC ---
Discharge Care Plan Diagnosis: (1) Astrocytoma (2) Seizure (3) Acute respiratory failure (4) four right temporal masses with cerebral edema (5) EtOH dependence Goals to Promote Your Health - Patient is to continue on Dilantin 300mg twice daily, Valproic Acid 500mg twice daily, and Decadron 4mg daily - Patient will need to followup with Medical Oncology, Dr. Yanes, in 1 week and Radiation Oncology, Dr. Griffin, in 1 week, call for those appt - Pt will need to followup with Neurosurgery. Dr. Cantor, in 4 weeks, call for that appt - Pt will need to followup with Neurology, Dr. Funes, in 2 weeks, call for that appt - We will arrange HHC/Physical therapy - Pt will get a recheck of his CBC, CMP, and Dilantin level on , 07/03/17 , with results to Dr. Yanes Directions to Meet Your Goals Take your medications as prescribed Follow your dietary instruction Follow activity as directed Keep your appointments as scheduled Take your immunizations and boosters as scheduled If your symptoms worsen call your PCP, if no PCP go to Urgent Care Center or Emergency Room Smoking is Dangerous to Your Health. Avoid second hand smoke Call the 24-hour hour crisis hotline for domestic abuse at Bonnie Garcia Jun 30, 2017 17:23 David Hinojosa DO Jul 03, 2017 11:03
--- NOTE | 2017-06-30 17:33 | HHI.PR ---
Addendum to Inpatient Note Addendum Reason: Additional Documentation Additional Information Residents responded to [facility]. Attending physician already at bedside and directing care. Will defer management to attending physician. Becky Black MD, R3 Jun 30, 2017 17:33
[2017-06-30] MEDS: LORazepam 2 MG/ML VIAL IV PUSH PRN (17:37)
--- NOTE | 2017-06-30 17:56 | RADRPT ---
EXAM DATE/TIME: 06/30/2017 17:45 [facility] COMPARISON: CT BRAIN W/O CONTRAST, June 20, 2017, 14:25. INDICATIONS : Seizures. RADIATION DOSE: 66.34 CTDIvol (mGy) MEDICAL HISTORY : Seizures. Astrocytoma SURGICAL HISTORY : Craniotomy. ENCOUNTER: Initial ACUITY: 1 day PAIN SCALE: Non-responsive LOCATION: cranial TECHNIQUE: Multiple contiguous axial images were obtained of the head. Using automated exposure control and adj ustment of the mA and/or kV according to patient size, radiation dose was kept as low as reasonably a chievable to obtain optimal diagnostic quality images. DICOM format image data is available electro nically for review and comparison. FINDINGS: Patient is status post right temporal craniotomy for mass resection and there is pneumocephalus in th e right middle cranial fossa, edema and hypodensity as noted previously. The skin sumit have been r emoved. The degree of pneumocephalus has decreased from the previous study. There is no definite evid ence of intracranial hemorrhage or midline shift. CONCLUSION: Pneumocephalus is decreased in the right middle cranial fossa since the previous study. Edema and pos tsurgical changes again noted. No midline shift. Giacomo Mendes MD on June 30, 2017 at 17:53 Board Certified Radiologist. This report was verified electronically.
--- NOTE | 2017-06-30 18:27 | RADRPT ---
EXAM DATE/TIME: 06/30/2017 17:57 [facility] COMPARISON: CHEST SINGLE AP, June 24, 2017, 4:40. INDICATIONS : Short of breath MEDICAL HISTORY : Seizures. SURGICAL HISTORY : Craniotomy. ENCOUNTER: Subsequent ACUITY: 2 weeks PAIN SCORE: Non-responsive. LOCATION: chest FINDINGS: Mild bibasilar and left midlung parenchymal opacities persist, not significantly changed. No definite pleural effusion. No pneumothorax. Heart size stable, normal. Previously seen left subclavian line has been removed. CONCLUSION: Bibasilar and left midlung faint parenchymal opacities are not significantly changed. Cruz To MD on June 30, 2017 at 18:24 Board Certified Radiologist. This report was verified electronically.
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
[2017-06-30 19:02] LABS: AUTOMATED NEUTROPHIL # 6.9 TH/MM3 (1.8-7.7); BASOPHIL % 0.2 % (0.0-2.0); EOSINOPHIL # 0.1 TH/MM3 (0-0.4); EOSINOPHIL % 1.3 % (0.0-4.0); HEMATOCRIT 31.3 % (39.0-51.0); HEMOGLOBIN 10.9 GM/DL (13.0-17.0); LYMPH % 13.4 % (9.0-44.0); LYMPHOCYTE # 1.2 TH/MM3 (1.0-4.8); MEAN CELL VOLUME 87.2 FL (80.0-100.0); MEAN CORPUSCULAR HEMOGLOBIN 30.4 PG (27.0-34.0); MEAN CORPUSCULAR HGB CONC 34.8 % (32.0-36.0); MEAN PLATELET VOLUME 6.8 FL (7.0-11.0); MONO % 7.9 % (0.0-8.0); MONOCYTE # 0.7 TH/MM3 (0-0.9); NEUT % 77.2 % (16.0-70.0); PLATELET COUNT 492 TH/MM3 (150-450); RED BLOOD COUNT 3.59 MIL/MM3 (4.50-5.90); RED CELL DISTRIBUTION WIDTH 12.6 % (11.6-17.2)
--- NOTE | 2017-06-30 19:03 | PD.ONC.PN ---
Subjective Subjective Remarks Resting comfortably in bedside chair; anxious to go home. at bedside. Objective Data Date Time Temp Pulse Resp B/P (MAP) Pulse Ox O2 Delivery O2 Flow Rate FiO2 06/30/17 16:51 99.2 107 18 114/71 (85) 96 06/30/17 15:30 97 Non-Rebreather 15.00 06/30/17 12:48 97.8 121 18 120/70 (87) 95 06/30/17 08:24 99.0 94 18 136/74 (94) 97 06/30/17 04:17 96 06/30/17 04:00 97.1 92 18 137/84 (101) 95 06/30/17 00:00 99.2 95 18 123/62 (82) 94 06/29/17 20:00 100.4 97 18 124/64 (84) 94 06/30/17 06/30/17 06/30/17 07:00 15:00 23:00 Intake Total 396 ml 50 ml Balance 396 ml 50 ml Result Diagram: 06/28/17 0450 Laboratory Results Laboratory Tests Test 06/30/17 18:27 Imaging Studies Last [address] 06/30/17 0000 Signed Impressions: Service Date/Time: Friday, June 30, 2017 17:45 - CONCLUSION: Pneumocephalus is decreased in the right middle cranial fossa since the previous study. Edema and postsurgical changes again noted. No midline shift. Giacomo Mendes MD Chest X-Ray 06/30/17 0000 Signed Impressions: Service Date/Time: Friday, June 30, 2017 17:57 - CONCLUSION: Bibasilar and left midlung faint parenchymal opacities are not significantly changed. Cruz To MD Administered Medications Medications (Trade) Dose Ordered Sig/Gerald Route PRN Reason Start Time Stop Time Status Last Admin Dose Admin Lorazepam (Ativan Inj) 1 mg Q2H PRN IV PUSH SEIZURES 06/08/17 11:15 06/30/17 17:37 Sodium Chloride (NS Flush) 2 ml UNSCH PRN IV FLUSH FLUSH AFTER USING IV ACCESS 06/08/17 12:30 06/09/17 07:36 Sodium Chloride (NS Flush) 2 ml BID IV FLUSH 06/08/17 21:00 06/30/17 08:08 Artificial Tears (Tears Naturale Opth Soln) 1 drop TID EACH EYE 06/08/17 13:00 06/30/17 18:33 Ondansetron HCl (Zofran Inj) 4 mg Q6H PRN IV PUSH NAUSEA OR VOMITING 06/08/17 12:30 06/22/17 17:58 Albuterol Sulfate (Albuterol Neb) 2.5 mg Q2HR NEB PRN INH SOB/WHEEZING 06/08/17 12:30 06/17/17 07:58 Miscellaneous Information 1 Q361D XX 06/08/17 12:30 06/08/17 12:30 Chlorhexidine Gluconate (Chlorhexidine 2% Cloth) 3 pack Taper DAILY@04 TOP 06/09/17 04:00 06/05/18 03:59 06/23/17 04:00 Senna/Docusate Sodium (Lorin-Colace) 1 tab BID PO 06/08/17 21:00 06/29/17 09:12 Magnesium Hydroxide (Milk Of Magnesia Liq) 30 ml Q12H PRN PO Mild constipation 06/08/17 12:30 06/22/17 12:35 Sennosides (Senokot) 17.2 mg Q12H PRN PO Moderate constipation 06/08/17 12:30 06/22/17 12:36 Bisacodyl (Dulcolax Supp) 10 mg DAILY PRN RECTAL SEVERE CONSITIPATION 06/08/17 12:30 06/22/17 12:00 Lactulose (Lactulose Liq) 30 ml DAILY PRN PO SEVERE CONSITIPATION 06/08/17 12:30 06/22/17 12:35 Chlorhexidine Gluconate (Peridex 0.12% Liq) 15 ml BID@08,20 MT 06/08/17 20:00 06/30/17 08:00 Multivitamins 10 ml/Thiamine HCl 100 mg/Folic Acid 1 mg/Sodium Chloride 511.2 ml @ 125 mls/hr Q24H IV 06/09/17 15:00 06/29/17 15:21 Acetaminophen (Tylenol 650 Mg/ 20 ml Liq) 650 mg Q6H PRN PO fever 06/08/17 13:30 06/27/17 03:09 Atorvastatin Calcium (Lipitor) 10 mg HS PO 06/09/17 21:00 06/29/17 20:58 Pantoprazole Sodium (Protonix Inj) 40 mg Q12HR IV PUSH 06/10/17 21:00 06/30/17 09:57 Oxacillin Sodium 2 gm/Sodium Chloride 100 ml @ 200 mls/hr Q6H IV 06/18/17 14:00 06/30/17 14:16 Acetaminophen 100 ml @ 400 mls/hr Q6H PRN IV FEVER 06/23/17 18:45 06/26/17 12:46 Valproic Acid (Depakene) 500 mg Q12HR PO 06/24/17 14:15 06/30/17 09:58 Dexmedetomidine HCl 1000 mcg/ Sodium Chloride 250 ml @ 13.09 mls/ hr TITRATE PRN IV SEDATION 06/25/17 17:15 06/28/17 05:47 Quetiapine Fumarate (SEROquel) 50 mg Q8H PO 06/26/17 10:00 06/30/17 18:33 Oxycodone/ Acetaminophen (Percocet 7.5-325 Mg) 1 tab Q4H PRN PO Headache pain 6-10 06/27/17 13:45 06/28/17 01:15 Acetaminophen (Tylenol) 650 mg Q4H PRN PO Any pain 1-5 06/27/17 13:45 06/27/17 14:02 Phenytoin (Dilantin) 300 mg BID PO 06/30/17 09:00 06/30/17 09:57 Dexamethasone (Decadron) 4 mg DAILY PO 06/30/17 09:00 06/30/17 09:57 Objective Remarks GENERAL: Well-nourished, well-developed patient. SKIN: Warm and dry. HEAD: healing right temporal incision. EYES: No scleral icterus. No injection or drainage. NECK: Supple, trachea midline. No JVD or lymphadenopathy. RESPIRATORY: No accessory muscle use. EXTREMITIES: No cyanosis, or edema. MUSCULOSKELETAL: Adequate muscle tone. NEUROLOGICAL: No obvious focal deficit. Awake, alert, and oriented x3. PSYCHIATRIC: Appropriate mood and affect; insight and judgment normal. Assessment/Plan Assessment 1. Anaplastic astrocytoma, WHO grader III: s/p resection by neurosurgery team on 06/21/2017. He will need close follow up in oncology and radiation oncology clinic for further care and treatment of anaplastic astrocytoma. IDH1, IDH2, MGMT, 1p19p studies pending. 2. Anemia: Component of anemia of inflammation. Continue to follow. 3. Thrombocytosis: reactive due to recent surgery. Previously within normal limits. Continue to follow 4. Leukocytosis: reactive, steroids 5. Seizure after removal of central line. Will return to ICU. Oncology team will continue to follow while inpatient. Cordelia Yanes MD Jun 30, 2017 19:03
[2017-06-30 19:32] LABS: ALBUMIN 2.3 GM/DL (3.4-5.0); AST (GOT) 24 U/L (15-37); BLOOD UREA NITROGEN 6 MG/DL (7-18); CALCIUM 7.7 MG/DL (8.5-10.1); CHLORIDE 107 MEQ/L (98-107); CREATININE 0.53 MG/DL (0.60-1.30); GLOMERULAR FILTRATION RATE 167 ML/MIN (>89); GLUCOSE,RANDOM 124 MG/DL (74-106); SODIUM (NA) 140 MEQ/L (136-145)
[2017-06-30 19:33] LABS: ALT (GPT) 50 U/L (12-78); PHENYTOIN (DILANTIN) 4.4 MCG/ML (10.0-20.0)
[2017-06-30 19:37] LABS: ALKALINE PHOSPHATASE 127 U/L (45-117); TOTAL BILIRUBIN ADULT 0.3 MG/DL (0.2-1.0); TOTAL PROTEIN 6.5 GM/DL (6.4-8.2); TROPONIN I 0.04 NG/ML (0.02-0.05)
[2017-06-30] MEDS ORDERED: FOSPHENYTOIN SODIUM 500 MG PE/10 ML VIAL IV ONE (20:45)
[2017-06-30] MEDS ORDERED: MAGNESIUM OXIDE 400 MG TAB PO PRN (21:00)
[2017-06-30] MEDS ORDERED: MAGNESIUM SULFATE INJ 2 GM in SODIUM CHLORIDE 0.9% INJ 96 ML IV PRN (21:00)
[2017-06-30] MEDS ORDERED: POTASSIUM PHOSPHATE MONOBASIC 500 MG TAB PO/TUBE PRN (21:00)
[2017-06-30] MEDS ORDERED: SODIUM PHOSPHATE INJ 30 MMOL in SODIUM CHLOR 0.9% 250 ML INJ 240 ML IV PRN (21:00)
[2017-06-30] MEDS ORDERED: POTASSIUM CHLOR 20 MEQ PREMIX 100 ML IV PRN (21:00)
[2017-06-30] MEDS ORDERED: POTASSIUM CHLOR 40 MEQ PREMIX 100 ML IV PRN ×2 (21:00)
[2017-06-30] MEDS ORDERED: POTASSIUM PHOSPHATE INJ 30 MMOL in SODIUM CHLOR 0.9% 250 ML INJ 250 ML IV PRN (21:00)
[2017-06-30] MEDS ORDERED: MAGNESIUM SULFATE INJ 4 GM in SODIUM CHLORIDE 0.9% INJ 92 ML IV PRN (21:00)
[2017-06-30] MEDS ORDERED: POTASSIUM CHLORIDE 25 MEQ EFFERVESCENT TAB PO PRN (21:00)
[2017-06-30] MEDS ORDERED: POTASSIUM PHOSPHATE MONOBASIC 500 MG TAB PO PRN (21:00)
[2017-06-30] MEDS: POTASSIUM CHLORIDE 25 MEQ EFFERVESCENT TAB PO SCH (21:39)
[2017-06-30] MEDS: ATORVASTATIN 10 MG TAB PO SCH (21:39)
[2017-06-30] MEDS: POTASSIUM CHLOR 20 MEQ PREMIX 100 ML IV PRN (21:41)
[2017-07-01] VITALS (10 sets, daily range): BP systolic 14–122; BP diastolic 60–80; PULSE 93–122; RESP 15–24; TEMP 98–99.5; O2SAT 93–100
[2017-07-01] MEDS: POTASSIUM CHLOR 20 MEQ PREMIX 100 ML IV PRN ×2 (00:02→02:22)
[2017-07-01] MEDS: oxyCODONE/ACETAMINOPHEN 7.5 MG/325 MG TAB PO PRN (00:04)
[2017-07-01] MEDS: OXACILLIN INJ 2 GM in SODIUM CHLORIDE 0.9% INJ 100 ML IV SCH ×4 (02:00→20:55)
[2017-07-01] MEDS: QUEtiapine FUMARATE 25 MG TAB PO SCH ×3 (02:00→18:31)
[2017-07-01] MEDS: CHLORHEXIDINE GLUCONATE 2 % 1 PACK (2 CLOTHS) TOP SCH (04:00)
[2017-07-01] MEDS: POTASSIUM CHLORIDE 25 MEQ EFFERVESCENT TAB PO SCH (06:00)
[2017-07-01 06:08] LABS: ALBUMIN 2.5 GM/DL (3.4-5.0); PHENYTOIN (DILANTIN) 6.8 MCG/ML (10.0-20.0)
[2017-07-01] MEDS ORDERED: FOSPHENYTOIN SODIUM 500 MG PE/10 ML VIAL IV ONE (06:45)
[2017-07-01] MEDS ORDERED: FOSPHENYTOIN INJ 500 MGPE in SODIUM CHLORIDE 0.9% INJ 50 ML IV ONE (06:45)
[2017-07-01] MEDS: CHLORHEXIDINE 0.12% (ORAL KIT) 15 ML CUP MT SCH ×2 (08:00→19:31)
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
[2017-07-01] MEDS: DOCUSATE SODIUM 50 MG/SENNA 8.6 MG TAB PO SCH ×2 (08:32→20:53)
[2017-07-01] MEDS: THIAMINE HCL 100 MG TAB PO SCH (08:33)
[2017-07-01] MEDS: FOLIC ACID 1 MG TAB PO SCH (08:33)
[2017-07-01] MEDS: MULTIVITAMIN TAB PO SCH (08:33)
[2017-07-01] MEDS: PANTOPRAZOLE SOD 40 MG DELAYED RELEASE TAB PO SCH (08:33)
[2017-07-01] MEDS: SODIUM CHLORIDE 0.9% FLUSH 10 ML FLUSH IV FLUSH SCH ×2 (08:33→19:32)
[2017-07-01] MEDS: VALPROIC ACID 250 MG CAP PO SCH ×3 (08:33→20:54)
[2017-07-01] MEDS: DEXAMETHASONE 4 MG TAB PO SCH (08:33)
[2017-07-01] MEDS: ARTIFICIAL TEARS OPTH SOLN 15 ML BTL EACH EYE SCH ×3 (08:34→18:31)
[2017-07-01] MEDS ORDERED: PHENYTOIN SODIUM 100 MG CAP PO SCH (09:00)
--- NOTE | 2017-07-01 09:43 | HHI.PR ---
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 right temporal lobe tumor---follow up pathology. Diagnosis/Plan: Subjective Subjective Comments seizure yesterday Active Medications Current Medications Medications (Trade) Dose Ordered Sig/Gerald Route Start Time Stop Time Status Last Admin (Ativan Inj) 1 mg Q2H PRN IV PUSH 06/08/17 11:15 06/30/17 17:37 (NS Flush) 2 ml UNSCH PRN IV FLUSH 06/08/17 12:30 06/09/17 07:36 (NS Flush) 2 ml BID IV FLUSH 06/08/17 21:00 07/01/17 08:33 (Tears Naturale Opth Soln) 1 drop TID EACH EYE 06/08/17 13:00 07/01/17 08:34 (Zofran Inj) 4 mg Q6H PRN IV PUSH 06/08/17 12:30 06/22/17 17:58 (Albuterol Neb) 2.5 mg Q2HR NEB PRN INH 06/08/17 12:30 06/17/17 07:58 Miscellaneous Information 1 Q361D XX 06/08/17 12:30 06/08/17 12:30 (Chlorhexidine 2% Cloth) 3 pack Taper DAILY@04 TOP 06/09/17 04:00 06/05/18 03:59 06/23/17 04:00 (Chlorhexidine 2% Cloth) 3 pack UNSCH PRN TOP 06/08/17 12:30 (Lorin-Colace) 1 tab BID PO 06/08/17 21:00 07/01/17 08:32 (Milk Of Magnesia Liq) 30 ml Q12H PRN PO 06/08/17 12:30 06/22/17 12:35 (Senokot) 17.2 mg Q12H PRN PO 06/08/17 12:30 06/22/17 12:36 (Dulcolax Supp) 10 mg DAILY PRN RECTAL 06/08/17 12:30 06/22/17 12:00 (Lactulose Liq) 30 ml DAILY PRN PO 06/08/17 12:30 06/22/17 12:35 (Peridex 0.12% Liq) 15 ml BID@08,20 MT 06/08/17 20:00 06/30/17 08:00 (Tylenol 650 Mg/ 20 ml Liq) 650 mg Q6H PRN PO 06/08/17 13:30 06/27/17 03:09 (Lipitor) 10 mg HS PO 06/09/17 21:00 06/30/17 21:39 Oxacillin Sodium 2 gm/Sodium Chloride 100 ml @ 200 mls/hr Q6H IV 06/18/17 14:00 07/01/17 08:49 (Trandate Inj) 20 mg Q4H PRN IV 06/22/17 19:30 Acetaminophen 100 ml @ 400 mls/hr Q6H PRN IV 06/23/17 18:45 06/26/17 12:46 (Depakene) 500 mg Q12HR PO 06/24/17 14:15 06/30/17 21:00 (SEROquel) 50 mg Q8H PO 06/26/17 10:00 07/01/17 08:33 (Percocet 7.5-325 Mg) 1 tab Q4H PRN PO 06/27/17 13:45 07/01/17 00:04 (Tylenol) 650 mg Q4H PRN PO 06/27/17 13:45 06/27/17 14:02 (Decadron) 4 mg DAILY PO 06/30/17 09:00 07/01/17 08:33 (Protonix) 40 mg DAILY PO 07/01/17 09:00 07/01/17 08:33 (Theragran) 1 tab DAILY PO 07/01/17 09:00 07/01/17 08:33 (Vitamin B1) 100 mg DAILY PO 07/01/17 09:00 07/01/17 08:33 (Folate) 1 mg DAILY PO 07/01/17 09:00 07/01/17 08:33 (Dilantin) 300 mg Q12H PO 07/01/17 09:00 07/01/17 08:32 Potassium Chloride 100 ml @ 50 mls/hr Q2H PRN IV 06/30/17 21:00 Potassium Chloride 100 ml @ 50 mls/hr Q2H PRN IV 06/30/17 21:00 07/01/17 02:22 (K-Lyte Cl Eff) 50 meq UNSCH PRN PO 06/30/17 21:00 Potassium Chloride 100 ml @ 25 mls/hr UNSCH PRN IV 06/30/17 21:00 Potassium Chloride 100 ml @ 50 mls/hr Q2H PRN IV 06/30/17 21:00 Magnesium Sulfate 4 gm/Sodium Chloride 100 ml @ 50 mls/hr UNSCH PRN IV 06/30/17 21:00 (Mag-Ox) 800 mg UNSCH PRN PO 06/30/17 21:00 Magnesium Sulfate 2 gm/Sodium Chloride 100 ml @ 50 mls/hr UNSCH PRN IV 06/30/17 21:00 (K-Phos) 2,000 mg Q4H PRN PO 06/30/17 21:00 Sodium Phosphate 30 mmol/Sodium Chloride 250 ml @ 42 mls/hr UNSCH PRN IV 06/30/17 21:00 (K-Phos) 2,000 mg UNSCH PRN PO/TUBE 06/30/17 21:00 Potassium Phosphate 30 mmol/ Sodium Chloride 260 ml @ 42 mls/hr UNSCH PRN IV 06/30/17 21:00 Allergies Allergies Coded Allergies No Known Allergies (Unverified07/20/16) Exam I&O / VS Vital Signs Date Time Temp Pulse Resp B/P (MAP) Pulse Ox O2 Delivery O2 Flow Rate FiO2 07/01/17 06:00 111 07/01/17 04:00 98.2 117 24 117/77 (90) 95 07/01/17 04:00 117 07/01/17 02:00 109 07/01/17 00:10 94 Nasal Cannula 2.00 07/01/17 00:00 108 07/01/17 00:00 98.0 108 23 118/78 (91) 94 06/30/17 22:00 120 06/30/17 20:00 98.1 108 21 127/83 (98) 94 06/30/17 20:00 108 06/30/17 16:51 99.2 107 18 114/71 (85) 96 06/30/17 15:30 97 Non-Rebreather 15.00 06/30/17 12:48 97.8 121 18 120/70 (87) 95 Objective Radiology Results Last [address] 06/30/17 0000 Signed Impressions: Service Date/Time: Friday, June 30, 2017 17:45 - CONCLUSION: Pneumocephalus is decreased in the right middle cranial fossa since the previous study. Edema and postsurgical changes again noted. No midline shift. Giacomo Mendes MD Chest X-Ray 06/30/17 0000 Signed Impressions: Service Date/Time: Friday, June 30, 2017 17:57 - CONCLUSION: Bibasilar and left midlung faint parenchymal opacities are not significantly changed. Cruz To MD Micro and Labs Laboratory Tests Test 06/30/17 18:27 07/01/17 04:35 White Blood Count 9.0 Red Blood Count 3.59 Hemoglobin 10.9 Hematocrit 31.3 Mean Corpuscular Volume 87.2 Mean Corpuscular Hemoglobin 30.4 Mean Corpuscular Hemoglobin Concent 34.8 Red Cell Distribution Width 12.6 Platelet Count 492 Mean Platelet Volume 6.8 Neutrophils (%) (Auto) 77.2 Lymphocytes (%) (Auto) 13.4 Monocytes (%) (Auto) 7.9 Eosinophils (%) (Auto) 1.3 Basophils (%) (Auto) 0.2 Neutrophils # (Auto) 6.9 Lymphocytes # (Auto) 1.2 Monocytes # (Auto) 0.7 Eosinophils # (Auto) 0.1 Basophils # (Auto) 0.0 CBC Comment DIFF FINAL Differential Comment Blood Urea Nitrogen 6 Creatinine 0.53 Random Glucose 124 Total Protein 6.5 Albumin 2.3 2.5 Calcium Level 7.7 Alkaline Phosphatase 127 Aspartate Amino Transf (AST/SGOT) 24 Alanine Aminotransferase (ALT/SGPT) 50 Total Bilirubin 0.3 Sodium Level 140 Potassium Level 3.0 4.0 Chloride Level 107 Carbon Dioxide Level 24.0 Anion Gap 9 Estimat Glomerular Filtration Rate 167 Troponin I 0.04 Phenytoin (Dilantin) Level 4.4 6.8 Valproic Acid (Depakene) Level 24 Magnesium Level 1.9 Date/Time Source Procedure Growth Status 06/21/17 15:50 Blood Peripheral Aerobic Blood Culture - Final NO GROWTH IN 5 DAYS Complete 06/21/17 15:50 Anaerobic Blood Culture - Final Staphylococcus Epidermidis Complete 06/12/17 10:55 Gastric Gastric Occult Blood - Final GASTROCCULT NEGATIVE Complete 06/18/17 13:30 Sputum Endotracheal Gram Stain - Final Complete 06/18/17 13:30 Sputum Culture - Final Staphylococcus Aureus Complete 06/21/17 11:50 Urine Catheterized Urine Urine Culture - Final NO GROWTH IN 48 HOURS. Complete 06/11/17 14:49 Wound Other Fungal Smear - Final NO FUNGAL ELEMENTS SEEN. Resulted 06/11/17 14:49 Wound Other Fungal Culture - Preliminary NO GROWTH IN 2 WEEKS Resulted Lelo Romero MD Jul 01, 2017 09:43
[2017-07-01] MEDS ORDERED: VALPROATE INJ 1,000 MG in SODIUM CHLORIDE 0.9% INJ 100 ML IV ONE (09:45)
[2017-07-01] MEDS ORDERED: ALPRAZolam 0.5 MG TAB PO ONE (11:15)
[2017-07-01] MEDS ORDERED: SODIUM CHLORIDE 0.9% IV ONE (15:30)
[2017-07-01] MEDS ORDERED: PHENYTOIN IV ONE (15:30)
--- NOTE | 2017-07-01 18:30 | MG ---
cc: Rahul Pedersen MD, Mandeep MD EEG NUMBER #[id number] INDICATIONS: A 47-year-old, history of mental status changes, possible seizure activity, head jerking. INTERPRETATION: A 5-7 Hz posterior rhythm, 20-30 microvolts, frontal delta activity. Spindle type of activity suggestive of stage II sleep. Tiny sharp transient C3-P3, epoch 59. Limited driving with photic stimulation. Single lead EKG showing sinus rhythm. IMPRESSION: Mainly stage II sleep. No epileptic activity. Clinical correlation. MD SHUN Willis//mendel , 06:15 PM , 06:23 PM
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
--- NOTE | 2017-07-01 20:07 | EKG ---
Date Performed: 06/30/2017 Time Performed: 18:10:36 PTAGE: 47 years EKG: ECTOPIC ATRIAL TACHYCARDIA ABNORMAL RHYTHM ECG PREVIOUS TRACING : 06/13/2017 16.30 Since the previous tracing, no significant change noted DOCTOR: Elizabeth Pete Interpretating Date/Time 07/01/2017 20:05:56
[2017-07-01] MEDS: PHENYTOIN SODIUM 100 MG CAP PO SCH (20:54)
[2017-07-01] MEDS: ATORVASTATIN 10 MG TAB PO SCH (20:54)
[2017-07-01] MEDS: MELATONIN 5 MG TAB PO PRN (20:54)
[2017-07-02] VITALS (12 sets, daily range): BP systolic 92–118; BP diastolic 58–71; PULSE 81–117; RESP 18–30; TEMP 98–100; O2SAT 92–100
[2017-07-02] MEDS: OXACILLIN INJ 2 GM in SODIUM CHLORIDE 0.9% INJ 100 ML IV SCH ×4 (02:03→21:27)
[2017-07-02] MEDS: QUEtiapine FUMARATE 25 MG TAB PO SCH ×3 (02:03→18:00)
[2017-07-02] MEDS: CHLORHEXIDINE GLUCONATE 2 % 1 PACK (2 CLOTHS) TOP SCH (04:00)
[2017-07-02 04:28] LABS: PHENYTOIN (DILANTIN) 10.5 MCG/ML (10.0-20.0)
[2017-07-02] MEDS: FOLIC ACID 1 MG TAB PO SCH (08:17)
[2017-07-02] MEDS: VALPROIC ACID 250 MG CAP PO SCH ×2 (08:17→21:28)
[2017-07-02] MEDS: PANTOPRAZOLE SOD 40 MG DELAYED RELEASE TAB PO SCH (08:17)
[2017-07-02] MEDS: THIAMINE HCL 100 MG TAB PO SCH (08:17)
[2017-07-02] MEDS: PHENYTOIN SODIUM 100 MG CAP PO SCH ×2 (08:17→21:28)
[2017-07-02] MEDS: MULTIVITAMIN TAB PO SCH (08:18)
[2017-07-02] MEDS: DEXAMETHASONE 4 MG TAB PO SCH (08:18)
[2017-07-02] MEDS: DOCUSATE SODIUM 50 MG/SENNA 8.6 MG TAB PO SCH ×2 (08:18→21:27)
[2017-07-02] MEDS: ARTIFICIAL TEARS OPTH SOLN 15 ML BTL EACH EYE SCH (09:00)
--- NOTE | 2017-07-02 09:11 | HHI.PR ---
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 right temporal lobe tumor---follow up pathology. Diagnosis/Plan: Subjective Subjective Comments no seizures Active Medications Current Medications Medications (Trade) Dose Ordered Sig/Gerald Route Start Time Stop Time Status Last Admin (Ativan Inj) 1 mg Q2H PRN IV PUSH 06/08/17 11:15 06/30/17 17:37 (NS Flush) 2 ml UNSCH PRN IV FLUSH 06/08/17 12:30 06/09/17 07:36 (NS Flush) 2 ml BID IV FLUSH 06/08/17 21:00 07/01/17 19:32 (Tears Naturale Opth Soln) 1 drop TID EACH EYE 06/08/17 13:00 07/01/17 18:31 (Zofran Inj) 4 mg Q6H PRN IV PUSH 06/08/17 12:30 06/22/17 17:58 (Albuterol Neb) 2.5 mg Q2HR NEB PRN INH 06/08/17 12:30 06/17/17 07:58 Miscellaneous Information 1 Q361D XX 06/08/17 12:30 06/08/17 12:30 (Chlorhexidine 2% Cloth) 3 pack Taper DAILY@04 TOP 06/09/17 04:00 06/05/18 03:59 06/23/17 04:00 (Chlorhexidine 2% Cloth) 3 pack UNSCH PRN TOP 06/08/17 12:30 (Lorin-Colace) 1 tab BID PO 06/08/17 21:00 07/02/17 08:18 (Milk Of Magnesia Liq) 30 ml Q12H PRN PO 06/08/17 12:30 06/22/17 12:35 (Senokot) 17.2 mg Q12H PRN PO 06/08/17 12:30 06/22/17 12:36 (Dulcolax Supp) 10 mg DAILY PRN RECTAL 06/08/17 12:30 06/22/17 12:00 (Lactulose Liq) 30 ml DAILY PRN PO 06/08/17 12:30 06/22/17 12:35 (Peridex 0.12% Liq) 15 ml BID@08,20 MT 06/08/17 20:00 06/30/17 08:00 (Tylenol 650 Mg/ 20 ml Liq) 650 mg Q6H PRN PO 06/08/17 13:30 06/27/17 03:09 (Lipitor) 10 mg HS PO 06/09/17 21:00 07/01/17 20:54 Oxacillin Sodium 2 gm/Sodium Chloride 100 ml @ 200 mls/hr Q6H IV 06/18/17 14:00 07/02/17 08:13 (Trandate Inj) 20 mg Q4H PRN IV 06/22/17 19:30 Acetaminophen 100 ml @ 400 mls/hr Q6H PRN IV 06/23/17 18:45 06/26/17 12:46 (SEROquel) 50 mg Q8H PO 06/26/17 10:00 07/02/17 08:18 (Percocet 7.5-325 Mg) 1 tab Q4H PRN PO 06/27/17 13:45 07/01/17 00:04 (Tylenol) 650 mg Q4H PRN PO 06/27/17 13:45 06/27/17 14:02 (Decadron) 4 mg DAILY PO 06/30/17 09:00 07/02/17 08:18 (Protonix) 40 mg DAILY PO 07/01/17 09:00 07/02/17 08:17 (Theragran) 1 tab DAILY PO 07/01/17 09:00 07/02/17 08:18 (Vitamin B1) 100 mg DAILY PO 07/01/17 09:00 07/02/17 08:17 (Folate) 1 mg DAILY PO 07/01/17 09:00 07/02/17 08:17 Potassium Chloride 100 ml @ 50 mls/hr Q2H PRN IV 06/30/17 21:00 Potassium Chloride 100 ml @ 50 mls/hr Q2H PRN IV 06/30/17 21:00 07/01/17 02:22 (K-Lyte Cl Eff) 50 meq UNSCH PRN PO 06/30/17 21:00 Potassium Chloride 100 ml @ 25 mls/hr UNSCH PRN IV 06/30/17 21:00 Potassium Chloride 100 ml @ 50 mls/hr Q2H PRN IV 06/30/17 21:00 Magnesium Sulfate 4 gm/Sodium Chloride 100 ml @ 50 mls/hr UNSCH PRN IV 06/30/17 21:00 (Mag-Ox) 800 mg UNSCH PRN PO 06/30/17 21:00 Magnesium Sulfate 2 gm/Sodium Chloride 100 ml @ 50 mls/hr UNSCH PRN IV 06/30/17 21:00 (K-Phos) 2,000 mg Q4H PRN PO 06/30/17 21:00 Sodium Phosphate 30 mmol/Sodium Chloride 250 ml @ 42 mls/hr UNSCH PRN IV 06/30/17 21:00 (K-Phos) 2,000 mg UNSCH PRN PO/TUBE 06/30/17 21:00 Potassium Phosphate 30 mmol/ Sodium Chloride 260 ml @ 42 mls/hr UNSCH PRN IV 06/30/17 21:00 (Depakene) 1,000 mg Q12HR PO 07/01/17 21:00 07/02/17 08:17 (Dilantin) 400 mg Q12HR PO 07/01/17 21:00 07/02/17 08:17 (Melatonin) 5 mg HS PRN PO 07/01/17 21:00 07/01/17 20:54 Allergies Allergies Coded Allergies No Known Allergies (Unverified07/20/16) Exam I&O / VS Vital Signs Date Time Temp Pulse Resp B/P (MAP) Pulse Ox O2 Delivery O2 Flow Rate FiO2 07/02/17 08:00 103 07/02/17 06:00 92 07/02/17 04:00 96 07/02/17 04:00 100.0 96 24 118/66 (83) 92 07/02/17 02:00 81 07/02/17 00:00 99.2 94 20 115/71 (86) 100 07/02/17 00:00 94 07/01/17 22:00 102 07/01/17 20:00 99.5 93 15 115/60 (78) 95 07/01/17 20:00 93 07/01/17 18:00 99.3 102 20 14/72 (53) 100 07/01/17 14:00 98.1 122 22 114/71 (85) 98 Objective Micro and Labs Laboratory Tests Test 07/01/17 14:00 07/02/17 03:30 Phenytoin (Dilantin) Level 10.2 10.5 Valproic Acid (Depakene) Level 33 Date/Time Source Procedure Growth Status 06/21/17 15:50 Blood Peripheral Aerobic Blood Culture - Final NO GROWTH IN 5 DAYS Complete 06/21/17 15:50 Anaerobic Blood Culture - Final Staphylococcus Epidermidis Complete 06/12/17 10:55 Gastric Gastric Occult Blood - Final GASTROCCULT NEGATIVE Complete 06/18/17 13:30 Sputum Endotracheal Gram Stain - Final Complete 06/18/17 13:30 Sputum Culture - Final Staphylococcus Aureus Complete 06/21/17 11:50 Urine Catheterized Urine Urine Culture - Final NO GROWTH IN 48 HOURS. Complete 06/11/17 14:49 Wound Other Fungal Smear - Final NO FUNGAL ELEMENTS SEEN. Resulted 06/11/17 14:49 Wound Other Fungal Culture - Preliminary NO GROWTH IN 2 WEEKS Resulted Lelo Romero MD Jul 02, 2017 09:11
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
[2017-07-02 13:23] LABS: PHENYTOIN (DILANTIN) 12.8 MCG/ML (10.0-20.0)
[2017-07-02] MEDS ORDERED: DILA100C PO (19:24)
[2017-07-02] MEDS ORDERED: VALP250 PO (19:24)
[2017-07-02] MEDS ORDERED: MELA5 PO (19:24)
[2017-07-02] MEDS ORDERED: CLON1 PO (19:26)
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
[2017-07-02] MEDS: CHLORHEXIDINE 0.12% (ORAL KIT) 15 ML CUP MT SCH (20:00)
[2017-07-02] MEDS: SODIUM CHLORIDE 0.9% FLUSH 10 ML FLUSH IV FLUSH SCH (21:00)
[2017-07-02] MEDS: ATORVASTATIN 10 MG TAB PO SCH (21:27)
[2017-07-03] VITALS: BP 86/54; PULSE 96; RESP 19; TEMP 99; O2SAT 100
[2017-07-03] MEDS: QUEtiapine FUMARATE 25 MG TAB PO SCH ×2 (01:55→08:35)
[2017-07-03] MEDS: OXACILLIN INJ 2 GM in SODIUM CHLORIDE 0.9% INJ 100 ML IV SCH ×2 (01:55→08:00)
[2017-07-03 02:00] VITALS: PULSE 88
[2017-07-03 04:00] VITALS: BP 91/64; PULSE 96; PULSE 97; RESP 26; TEMP 98.9; O2SAT 100
[2017-07-03] MEDS: CHLORHEXIDINE GLUCONATE 2 % 1 PACK (2 CLOTHS) TOP SCH (04:00)
[2017-07-03] MEDS: MELATONIN 5 MG TAB PO PRN (04:14)
[2017-07-03 06:00] VITALS: PULSE 96
[2017-07-03 08:00] VITALS: BP 115/69; PULSE 105; PULSE 96; RESP 24; TEMP 98.9; O2SAT 100
[2017-07-03] MEDS: CHLORHEXIDINE 0.12% (ORAL KIT) 15 ML CUP MT SCH (08:00)
[2017-07-03] MEDS: SODIUM CHLORIDE 0.9% FLUSH 10 ML FLUSH IV FLUSH SCH (08:06)
[2017-07-03] MEDS: DOCUSATE SODIUM 50 MG/SENNA 8.6 MG TAB PO SCH (08:06)
[2017-07-03] MEDS: VALPROIC ACID 250 MG CAP PO SCH (08:34)
[2017-07-03] MEDS: PHENYTOIN SODIUM 100 MG CAP PO SCH (08:34)
[2017-07-03] MEDS: DEXAMETHASONE 4 MG TAB PO SCH (08:34)
[2017-07-03] MEDS: THIAMINE HCL 100 MG TAB PO SCH (08:35)
[2017-07-03] MEDS: FOLIC ACID 1 MG TAB PO SCH (08:35)
[2017-07-03] MEDS: PANTOPRAZOLE SOD 40 MG DELAYED RELEASE TAB PO SCH (08:35)
[2017-07-03] MEDS: MULTIVITAMIN TAB PO SCH (08:35)
[2017-07-03] MEDS: ARTIFICIAL TEARS OPTH SOLN 15 ML BTL EACH EYE SCH (09:00)
== END 2017-07-03 10:53 | disposition home health service (06) | DRG 25 ==
LOC: NEPE 10:21 → NEDA 12:21 → N03A 14:15 → N05A 06-28 18:50 → N03A 06-30 17:43
PROVIDERS: ADMIT Hospitalist; ATTEND Hospitalist
PROC: 0T9B70Z Drainage of Bladder with Drainage Device, Via Natural or Artificial Opening (ICD-10-PCS; principal; 2017-06-08)
PROC: 5A1955Z Respiratory Ventilation, Greater than 96 Consecutive Hours (ICD-10-PCS; 2017-06-08)
PROC: 0BH17EZ Insertion of Endotracheal Airway into Trachea, Via Natural or Artificial Opening (ICD-10-PCS; 2017-06-08)
PROC: 00B03ZX Excision of Brain, Percutaneous Approach, Diagnostic (ICD-10-PCS; 2017-06-11)
PROC: 8E09XBZ Computer Assisted Procedure of Head and Neck Region (ICD-10-PCS; 2017-06-11)
PROC: 0DH67UZ Insertion of Feeding Device into Stomach, Via Natural or Artificial Opening (ICD-10-PCS; 2017-06-13)
PROC: 0BH17EZ Insertion of Endotracheal Airway into Trachea, Via Natural or Artificial Opening (ICD-10-PCS; 2017-06-13)
PROC: 00B00ZX Excision of Brain, Open Approach, Diagnostic (ICD-10-PCS; 2017-06-20)
PROC: 8E09XBZ Computer Assisted Procedure of Head and Neck Region (ICD-10-PCS; 2017-06-20)
DX: C71.2 Malignant neoplasm of temporal lobe (principal); G93.6 Cerebral edema; J96.01 Acute respiratory failure with hypoxia; G93.41 Metabolic encephalopathy; J15.211 Pneumonia due to Methicillin susceptible Staphylococcus aureus; J15.4 Pneumonia due to other streptococci; R47.01 Aphasia; R44.3 Hallucinations, unspecified; G40.409 Other generalized epilepsy and epileptic syndromes, not intractable, without status epilepticus; F10.20 Alcohol dependence, uncomplicated; T88.4XXA Failed or difficult intubation, initial encounter; E27.9 Disorder of adrenal gland, unspecified; F02.80 Dementia in other diseases classified elsewhere, unspecified severity, without behavioral disturbance, psychotic disturbance, mood disturbance, and anxiety; F32.9 Major depressive disorder, single episode, unspecified; E83.39 Other disorders of phosphorus metabolism; D64.9 Anemia, unspecified; E87.70 Fluid overload, unspecified; Z78.1 Physical restraint status; R79.89 Other specified abnormal findings of blood chemistry; Z72.820 Sleep deprivation
CPT/HCPCS: 31500; 36600; 36620; 51702; 70450; 70496; 70498; 70553; 71045; 71260; 74018; 74177; 76937; 80048; 80053; 80061; 80076; 80164; 80185; 80202; 80307; 81001; 82040; 82270; 82533; 82550; 82805; 83605; 83735; 84100; 84132; 84439; 84443; 84481; 84484; 85007; 85025; 85027; 85384; 85610; 85730; 86403; 86703; 86850; 86900; 86901; 87015; 87040; 87070; 87077; 87086; 87102; 87116; 87147; 87186; 87205; 87206; 87449; 87641; 88307; 88331; 93005; 93970; 94002; 94003; 94150; 94640; 94664; 94667; 94668; 95819; 96365; 96375; A9579; C1713; C9113; J0131; J0330; J0690; J0692; J1100; J1120; J1165; J1580; J1630; J1940; J1953; J2060; J2250; J2270; J2370; J2405; J2700; J3010; J3370; J3411; J3480; J7030; J7040; J7050; J7120; J7613; J8540; Q2009; Q9967